=== PATIENT | male | born 1960 | race Caucasian/White ===

== ENCOUNTER 2019-07-04 23:36 | Emergency (ER) | payer MEDICARE ==
[2019-07-05] MEDS ORDERED: Ondansetron PF 4 MG/2 ML Vial ONE (00:31)
[2019-07-05] MEDS ORDERED: Morphine 4 MG/ML VIAL ONE ×2 (00:31→03:02)
[2019-07-05 00:33] LABS: #Eosinphils 0.3 thou/uL (0.0-0.7); #Lymphocytes 3.3 thou/uL (1.20-3.40); #Monocytes 0.7 thou/uL (0.11-0.59); #Neutrophils 5.7 thou/uL (1.40-6.50); %Basophils 0.5 % (0.0-1.0); %Eosinophils 2.9 % (0.0-10.0); %Lymphocytes 33.1 % (21.0-51.0); %Monocytes 6.8 % (0.0-10.0); %Neutrophils 56.7 % (42.0-75.0); Hemoglobin 14.2 g/dL (14.0-18.0); Mean Corpuscular HGB CONC 34.5 g/dL (32.0-36.0); Mean Corpuscular Hemoglobin 30.1 pg (27.0-31.0); Mean Corpuscular Volume 87.3 fL (78.0-98.0); Mean Platelet Volume 7.2 fL (7.4-10.4); Platelet Count 300 thou/uL (130-400); RBC Distribution Width 12.1 % (11.5-14.5); Red Blood Cell (RBC) Count 4.72 mill/uL (4.70-6.10); White Blood Cell (WBC) Count 10.1 thou/uL (4.8-10.8)
[2019-07-05 00:54] LABS: ALT (SGPT) 15 U/L (8-55); AST (SGOT) 12 U/L (5-34); Albumin 4.1 g/dL (3.5-5.0); Alkaline Phosphatase 56 U/L (40-150); Anion Gap 16 mmol/L (10-20); BUN (Urea Nitrogen) 11 mg/dL (8.4-25.7); Bilirubin, Total 0.3 mg/dL (0.2-1.2); Calc. Creatinine Clearance 0 mL/min (70-130); Calcium 9.7 mg/dL (7.8-10.44); Carbon Dioxide 26 mmol/L (22-29); Chloride 104 mmol/L (98-107); Estimated GFR-MDRD 79; Globulin 2.9 g/dL (2.4-3.5); Glucose 174 mg/dL (70-105); Lipase 44 U/L (8-78); Potassium 4.8 mmol/L (3.5-5.1); Sodium 141 mmol/L (136-145)
[2019-07-05 01:08] LABS: Bilirubin Negative (Negative); Blood, Urine Negative (Negative); Clarity Clear (Clear); Glucose, Urine (Dipstick) Normal (Negative); Leukocyte Negative Leu/uL (Negative); Nitrite Negative (Negative); Protein, Urine (Dipstick) 20 mg/dL (Neg-Trace); Urobilinogen Normal mg/dL (Less than 2)
[2019-07-05] MEDS ORDERED: Promethazine HCl 25 MG/ML VIAL ONE (01:45)
--- NOTE | 2019-07-05 08:06 | ULT ---
PRELIMINARY REPORT/[facility]/EMERGENCY AFTER HOURS PROCEDURE: Addendum created by Maryann Uribe MD on 07/05/2019 1:40 AM Central Time ([place] & [place]) Liver is enlarged at 21 cm and demonstrates diffuse fatty infiltration. No solid mass is identified. Minimal gallbladder sludge. Initial Report created on 07/05/2019 1:39 AM Central Time ([place] & [place]) EXAM: US Abdomen Limited, Right Upper Quadrant EXAM DATE/TIME: 07/05/2019 12:56 AM CLINICAL HISTORY: 59 years old, male; Abdominal pain; Localized; Right upper quadrant (ruq); Patient HX: Ruq pain, bloa ting, n/v TECHNIQUE: Imaging protocol: Real-time ultrasound of the abdomen with image documentation. Examination was focus ed on the right upper quadrant. COMPARISON: No relevant prior studies available. FINDINGS: Liver: No masses. Gallbladder: Distended. No gallstones. There is no gallbladder wall thickening. Common bile duct: 5 mm. No stones. No dilation. Pancreas: Obscured by bowel gas. Right kidney: 3.4 x 3.1 x 3.1 cm simple cyst. No solid mass. No hydronephrosis. IMPRESSION: Distended gallbladder which otherwise appears normal. No focal tenderness. No biliary stone or dilation. Right renal cyst. Thank you for allowing us to participate in the care of your patient. Dictated and Authenticated by: Maryann Uribe MD 07/05/2019 1:39 AM Central Time ([place] & [place]) FINAL REPORT GALLBLADDER ULTRASOUND: FINDINGS/IMPRESSION: Final report is in agreement with the above-provided preliminary interpretation. No acute gallbladder pathology. Incidental right renal cyst. Increased echogenicity of hepatic parenchyma which can be seen in the setting of hepatic steatosis. Correlate liver function enzymes.
--- NOTE | 2019-07-05 08:33 | CT ---
PRELIMINARY REPORT/[facility]/EMERGENCY AFTER HOURS PROCEDURE: EXAM: CT Angiography Chest With Contrast EXAM DATE/TIME: 07/05/2019 3:17 AM CLINICAL HISTORY: 59 years old, male; Chest pain; Abdominal pain; Acute; Patient HX: No previous. . . Er 13. . . M59 C/ O ruq pain that began this evening, also states it radiates to the back. Reports it is associated w/n /v. Denies fevers, sweats, chills. TECHNIQUE: Imaging protocol: Computed tomographic angiography of the chest with intravenous contrast. 3D renderi ng: MIP reconstructed images were created and reviewed. COMPARISON: No relevant prior studies available. FINDINGS: Tubes, catheters and devices: Left sided automated implantable cardioverter defibrillator device is i ntact and in satisfactory position. Pulmonary arteries: Bolus is timed for the aorta. No central embolism seen. Aorta: There are atheromatous calcifications of the aorta without visible aneurysm. No dissection. Lungs: No focal infiltrate. No masses. Pleural space: No pneumothorax. No pleural effusion. Heart: Mild cardiomegaly. There are atheromatous calcifications of the coronary vasculature. Lymph nodes: Unremarkable. No enlarged lymph nodes. Bones/joints: There are median sternotomy changes. Chronic degenerative spinal changes without acute fracture or dislocation. Soft tissues: Unremarkable. IMPRESSION: Cardiomegaly. Atheromatous disease. No aneurysm or dissection. EXAM: CT Angiography Abdomen With Contrast EXAM DATE/TIME: 07/05/2019 3:17 AM CLINICAL HISTORY: 59 years old, male; Chest pain; Abdominal pain; Acute; Patient HX: No previous. . . Er 13. . . M59 C/ O ruq pain that began this evening, also states it radiates to the back. Reports it is associated w/n /v. Denies fevers, sweats, chills. TECHNIQUE: Imaging protocol: Computed tomographic angiography images of the abdomen with intravenous contrast ma terial. 3D rendering: MIP reconstructed images were created and reviewed. COMPARISON: No relevant prior studies available. FINDINGS: VASCULATURE: Aorta: There are atheromatous changes of the abdominal aorta without aneurysm. Celiac trunk and mesenteric arteries: No occlusion or significant stenosis. Renal arteries: No occlusion or significant stenosis. ABDOMEN: Liver: Liver is enlarged at 22.5 cm and demonstrates diffuse fatty infiltration. No solid mass is hernandez ntified. Gallbladder and bile ducts: Gallbladder distended. No calcified stones. No ductal dilation. Pancreas: No ductal dilation. Spleen: No splenomegaly. Adrenals: No mass. Kidneys and ureters: Bilateral simple renal cysts, largest on the right measuring 3.5 cm vs 2.6 cm on the left. Six mm nonobstructing stone, left lower pole. Three mm nonobstructing stone, left lower po le. Stomach and bowel: There is moderate colonic fecal retention. Intraperitoneal space: Unremarkable. No free air. No significant fluid collection. Bones/joints: Chronic degenerative spinal changes without acute fracture or dislocation. Soft tissues: Unremarkable. Lymph nodes: Unremarkable. No enlarged lymph nodes. IMPRESSION: Atheromatous disease. No aneurysm or dissection. Distended gallbladder. Nonobstructing renal stones. Fecal retention. Thank you for allowing us to participate in the care of your patient. Dictated and Authenticated by: Maryann Uribe MD 07/05/2019 3:41 AM Central Time ([place] & [place]) FINAL REPORT CT ANGIOGRAM OF THORACIC AORTA CT ANGIOGRAM OF ABDOMINAL AORTA: Date: 07/05/19 HISTORY: Right upper quadrant pain, radiating to the back. Evaluate for dissection. COMPARISON: None. TECHNIQUE: CT angiogram of the thoracic and abdominal aorta performed in the axial plane. Three-dimensional refo rmatted images are submitted for interpretation. FINDINGS: CHEST CT: Cardiomegaly. No significant mediastinal mass, lymphadenopathy, or hematoma. There are coronary arter y calcifications. Trachea and central bronchi are patent. No masses or consolidation. No pneumothorax or osseous abnorm alities. ABDOMEN CT: Visualized solid organs demonstrate appropriate enhancement. Hypodensities in the left and right cedric l cortex are compatible with cysts. Bilateral nonobstructing intrarenal calculi are noted. Visualized alimentary canal is unremarkable. CT ANGIOGRAM: There is appropriate enhancement and luminal diameter of the root of the thoracic aorta, ascending th oracic aorta, aortic arch, descending thoracic aorta, and abdominal aorta. The celiac artery origin, superior mesenteric artery origin, renal artery origin, inferior mesenteric artery origin, aortic bif urcation, and visualized iliac arteries have appropriate enhancement and luminal diameter. No aneurys m or dissection. Mild atherosclerosis of the distal abdominal aorta. The visualized origin of the gre at vessels and neck are also unremarkable. IMPRESSION: No evidence of aneurysm or dissection. This report is in agreement with the preliminary report by Edyta. POS: [facility]
[2019-07-05] MEDS ORDERED: ISOVUE-370 76%-LOCM 1 ML ONE (12:30)
== END 2019-07-05 04:30 | disposition home or self-care (01) ==
LOC: ERS 23:36
DX: R10.11 Right upper quadrant pain (principal); I25.2 Old myocardial infarction; I50.9 Heart failure, unspecified; E11.9 Type 2 diabetes mellitus without complications; Z79.899 Other long term (current) drug therapy; Z79.01 Long term (current) use of anticoagulants; Z79.4 Long term (current) use of insulin
CPT/HCPCS: 36415; 71275; 76705; 80053; 81003; 83690; 85025; 96361; 96374; 96375; 96376; J2270; J2405; J2550

== ENCOUNTER 2019-07-08 16:14 | Inpatient (IN) | payer MEDICARE ==
[2019-07-08 17:25] LABS: #Eosinphils 0.1 thou/uL (0.0-0.7); #Monocytes 1.4 thou/uL (0.11-0.59); #Neutrophils 10.5 thou/uL (1.40-6.50); %Basophils 0.2 % (0.0-1.0); %Eosinophils 0.8 % (0.0-10.0); %Monocytes 9.7 % (0.0-10.0); %Neutrophils 75.3 % (42.0-75.0); Hemoglobin 12.8 g/dL (14.0-18.0); Mean Corpuscular HGB CONC 33.5 g/dL (32.0-36.0); Mean Corpuscular Hemoglobin 29.6 pg (27.0-31.0); Mean Corpuscular Volume 88.1 fL (78.0-98.0); Mean Platelet Volume 7.4 fL (7.4-10.4); Platelet Count 275 thou/uL (130-400); RBC Distribution Width 12.2 % (11.5-14.5); Red Blood Cell (RBC) Count 4.34 mill/uL (4.70-6.10); White Blood Cell (WBC) Count 13.9 thou/uL (4.8-10.8)
[2019-07-08 17:45] LABS: ALT (SGPT) 14 U/L (8-55); AST (SGOT) 11 U/L (5-34); Albumin 3.7 g/dL (3.5-5.0); Alkaline Phosphatase 73 U/L (40-150); Anion Gap 15 mmol/L (10-20); BUN (Urea Nitrogen) 10 mg/dL (8.4-25.7); Bilirubin, Total 0.4 mg/dL (0.2-1.2); Calc. Creatinine Clearance 0 mL/min (70-130); Calcium 9.4 mg/dL (7.8-10.44); Carbon Dioxide 29 mmol/L (22-29); Chloride 98 mmol/L (98-107); Estimated GFR-MDRD 89; Globulin 3.2 g/dL (2.4-3.5); Glucose 135 mg/dL (70-105); Lipase 20 U/L (8-78); Potassium 4.5 mmol/L (3.5-5.1); Protein, Total 6.9 g/dL (6.0-8.3); Sodium 137 mmol/L (136-145)
[2019-07-08 17:55] LABS: Bilirubin Negative (Negative); Blood, Urine Negative (Negative); Clarity Clear (Clear); Glucose, Urine (Dipstick) Normal (Negative); Leukocyte Negative Leu/uL (Negative); Nitrite Negative (Negative); Protein, Urine (Dipstick) 10 mg/dL (Neg-Trace); Urobilinogen Normal mg/dL (Less than 2)
[2019-07-08 18:05] LABS: CKMB 1.4 ng/mL (0-6.6)
--- NOTE | 2019-07-08 18:25 | ULT ---
GALLBLADDER ULTRASOUND: History: Right upper quadrant pain. FINDINGS: The liver demonstrates increased echogenicity concerning for fatty infiltration without focal mass or intrahepatic biliary dilatation. No gallstones are seen. There is thickening and edema in the wall o f the gallbladder measuring about 4 mm. The common duct measures 5 mm. The pancreas is not well visualized due to overlying bowel gas. The right kidney is unremarkable. No free fluid is seen in Rodarte's pouch. IMPRESSION: Edematous gallbladder wall without gallstones. If there is concern for acute calculus, cholecystitis with evaluation with HIDA scan should be performed. POS: [facility]
[2019-07-08] MEDS ORDERED: Aspirin Chewable 81 MG TAB ONE (19:12)
[2019-07-08] MEDS ORDERED: Piperacillin/Tazobactam 4.5 GM VIAL ONE (19:46)
--- NOTE | 2019-07-08 20:21 | PDOC.FPRHP ---
- History of Present Illness Chief Complaint: Abdominal pain History of Present Illness: 59yo male w/ significant pmhx of CAD w/ CABG, DMII, afib, and CHF presents to the ED complaining of RUQ pain. Pt states that the pain started at the end of last week and has been progressively worsening. Pt noticed that the pain is worse after meals so he wasn't eating much the last couple days which improved his pain until today when it acutely worsened after eating greasy gas station food. Pt denies any assocaited sx including CP, N/V, diarrhea, and constipation. Initial workup in the ED showed the pt to have thickening and enlargement of his gallbladder w/ a WBC of 13.9 and indeterminate level troponin. Pt denies any chest pain or shortness of breath. - Allergies/Adverse Reactions Allergies Allergy/AdvReac Type Severity Reaction Status Date / Time Penicillins Allergy Intermediate Rash Verified 08/31/16 13:02 - Home Medications Medication Instructions Recorded Confirmed Type Atorvastatin Calcium [Lipitor] 40 mg PO QPM 08/31/16 07/08/19 History Carvedilol 1 tab PO BID 08/31/16 07/08/19 History Clopidogrel Bisulfate [Clopidogrel] 1 tab PO DAILY 08/31/16 07/08/19 History Digoxin 0.5 tab PO DAILY 08/31/16 07/08/19 History Insulin Glargine,Hum.Rec.Anlog 64 unit SC QPM 08/31/16 07/08/19 History [Lantus Solostar] Liraglutide [Victoza 3-Jt] 1.8 mg SC DAILY 08/31/16 07/08/19 History Sotalol HCl [Betapace] 40 mg PO BID 08/31/16 07/08/19 History metFORMIN HCl 1 tab PO BID 08/31/16 07/08/19 History Icosapent Ethyl [Vascepa] 2 cap PO BID 07/08/19 07/08/19 History Ivabradine [Corlanor] 0.5 tab PO BID 07/08/19 07/08/19 History Oxycodone Myristate [Xtampza ER] 1 cap PO Q12H 07/08/19 07/08/19 History Sacubitril/Valsartan 49/51 1 tab PO BID 07/08/19 07/08/19 History [Entresto 49 mg-51 mg Tablet] glipiZIDE [Glipizide] 1 tab PO BID 07/08/19 07/08/19 History - History PMHx: CAD s/p [place]/5vCABG/Stents, 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 Mercer - [facility] - Review of Systems General: denies: fever/chills, weight/appetite/sleep changes Eyes: denies: eye pain, vision changes ENT: denies: nasal congestion, rhinorrhea Respiratory: denies: cough, shortness of breath Cardiovascular: denies: chest pain, palpitation, edema Gastrointestinal: reports: abdominal pain. denies: nausea, vomiting, diarrhea, constipation Genitourinary: denies: dysuria, polyuria Skin: denies: rashes, lesions Musculoskeletal: denies: pain, tenderness Neurological: denies: numbness, weakness Psychological: denies: anxiety, depression - Vital signs BP: 128/78, Pulse: 79, Resp: 16, Temp: 98.8 (Oral), Pain: 6, O2 sat: 98 on Room Air, Wt: 103.87kg - Physical Exam Constitutional: NAD, awake, alert and oriented, well developed HEENT: normocephalic and atraumatic, PERRLA, EOMI, conjunctiva clear, grossly normal vision, grossly normal hearing Neck: supple, no LAD Heart: RRR, normal S1/S2, no murmurs/rubs/gallops, pulses present, no edema Lungs: CTAB, no respiratory distress, good air movement, no rales/rhonchi, no wheezing Abdomen: soft, bowel sounds present, no masses/distention, other (TTP in RUQ with + murphys sign, no rebound or guarding) Musculoskeletal: normal structure, normal tone Neurological: no focal deficit, CN II-XII intact Skin: no rash/lesions, good turgor, capillary refill <2 seconds Heme/Lymphatic: no unusual bruising or bleeding, no purpura Psychiatric: normal mood and affect, good judgment and insight, intact recent and remote memory FMR H&P: Results - Labs Result Diagrams: 07/09/19:52 07/09/19 02:52 Lab results: WBC 13.9 thou/uL (4.8-10.8) H 07/08/19 17:14 Hgb 12.8 g/dL (14.0-18.0) L 07/08/19 17:14 Hct 38.3 % (42.0-52.0) L 07/08/19 17:14 MCV 88.1 fL (78.0-98.0) 07/08/19 17:14 Plt Count 275 thou/uL (130-400) 07/08/19 17:14 Neutrophils % 75.3 % (42.0-75.0) H 07/08/19 17:14 Sodium 137 mmol/L (136-145) 07/08/19 17:14 Potassium 4.5 mmol/L (3.5-5.1) 07/08/19 17:14 Chloride 98 mmol/L (98-107) 07/08/19 17:14 Carbon Dioxide 29 mmol/L (22-29) 07/08/19 17:14 BUN 10 mg/dL (8.4-25.7) 07/08/19 17:14 Creatinine 0.88 mg/dL (0.7-1.3) 07/08/19 17:14 Glucose 135 mg/dL (70-105) H 07/08/19 17:14 Calcium 9.4 mg/dL (7.8-10.44) 07/08/19 17:14 Total Bilirubin 0.4 mg/dL (0.2-1.2) 07/08/19 17:14 AST 11 U/L (5-34) 07/08/19 17:14 ALT 14 U/L (8-55) 07/08/19 17:14 Alkaline Phosphatase 73 U/L (40-150) 07/08/19 17:14 CK-MB (CK-2) 1.4 ng/mL (0-6.6) 07/08/19 17:14 Serum Total Protein 6.9 g/dL (6.0-8.3) 07/08/19 17:14 Albumin 3.7 g/dL (3.5-5.0) 07/08/19 17:14 Lipase 20 U/L (8-78) 07/08/19 17:14 Urine Ketones Negative mg/dL (Negative) 07/08/19 17:40 Urine Blood Negative (Negative) 07/08/19 17:40 Urine Nitrite Negative (Negative) 07/08/19 17:40 Ur Leukocyte Esterase Negative Elvi/uL (Negative) 07/08/19 17:40 - EKG Interpretation EKG: NSR with PVC's, rate 76 - Radiology Interpretation Other Status: image reviewed by me, report reviewed by me Additional comment: RUQ US: Gallbladder wall thickening to 4mm, no stones seen, CBD 5mm FMR H&P: A/P - Problem List (1) Acute acalculous cholecystitis Current Visit: Yes Status: Suspected Code(s): K81.0 - ACUTE CHOLECYSTITIS (2) Coronary artery disease Current Visit: Yes Status: Acute Code(s): I25.10 - ATHSCL HEART DISEASE OF [place] CORONARY ARTERY W/O ANG PCTRS (3) Diabetes mellitus type 2 with complications Current Visit: Yes Status: Acute Code(s): E11.8 - TYPE 2 DIABETES MELLITUS WITH UNSPECIFIED COMPLICATIONS (4) Atrial fibrillation Current Visit: Yes Status: Acute Code(s): I48.91 - UNSPECIFIED ATRIAL FIBRILLATION (5) Leukocytosis Current Visit: Yes Status: Acute Code(s): D72.829 - ELEVATED WHITE BLOOD CELL COUNT, UNSPECIFIED - Plan Acute Acalculous Cholecystitis - Suspected RUQ pain, worse post prandial, FHx of cholecystitis US: gallbladder wall thickening, WBC 13.9 - NPO - Trend WBC - IVF - ED started on Zosyn, will continue - Surgery consulted, Dr. Ely, recommend HIDA scan Elevated troponin w/ Hx of CAD s/p CABG Pt with h/o 5v CABG, currently asymptomatic - Will trend - Repeat EKG and trops for any chest pain - Will call Dr. Griffith in the AM for cardiac clearance - Resume home cardiac rx Diabetes Mellitus II - Hold Rx while NPO - Accuchecks q6h - SSI Paroxysmal A-fib - Currently taking several anti-arrhythmics, will continue - Admit to tele CHF - Daily weights - Strict I/O's - Continue home meds - IVF @ 100 while pt is borderline hypotensive - Pt states he normally drinks about 3 gallons of water per day and takes his furosemide prn which is usually every few days - Monitor fluid status closely Admit: Tele inpt Diet: NPO Code status: Full FMR H&P: Upper Level - Pertinent history 59 y/o M PMHx CAD s/p 5v CABG, DM2, a-fib, CHF presents to the ED complaining of RUQ abd pain. He reports the pain has been there since and starts just after eating. Nothing else makes it worse. He has not been eating as much the past few days and that has helped the pain. Denies any vomiting or diarrhea. He denies fevers, chills. Denies any prior abdominal problems or surgeries. Denies chest pain, SOB, diaphoresis. - Pertinent findings Vitals: BP: 128/78, Pulse: 79, Resp: 16, Temp: 98.8 (Oral), Pain: 6, O2 sat: 98 on Room Air, Wt: 103.87kg PE: Gen - alert, oriented, NAD HEENT - MMM CV - RRR, no murmurs Lungs - CTAB, no wheezes Abd - non-distended, normoactive bowel sounds, soft, TTP in RUQ with + [place] sign, no rebound or guarding RUQ US: Gallbladder wall thickening, no stones - Plan Date/Time: 07/08/192020 I, Kenzie Garg MD, PGY-3, have evaluated this patient and agree with findings/ plan as outlined by human resources intern resident. Pertinent changes/additions are listed here. 1. Suspected Acute Acalculous Cholecystitis WBC count WNL. Afebrile. s/p zosyn in ED -Dr. Ely with general surgery has been consulted, appreciate recs -NPO -HIDA scan -Will hold further fluids at this time as pt not septic, appears fluid neutral and do not want to overload -Zosyn 2. Elevated troponin Pt with h/o 5v CABG -Will trend -Repeat EKG and trops for any chest pain, currently asymptomatic -Will call Dr. Griffith in the AM for cardiac clearance and prior records as pt reports stress test within past 3 months 3. CAD s/p CABG and stents -Contact cards as above -Continue medications, but hold aspirin and plavix for surgery 4. DM2 -Will hold meds while NPO -Accuchecks q6h -SSI 5. Paroxysmal a-fib -continue home meds 6. CHF -Daily weights -Strict I/O's -Continue home meds Dispo: Admit to tele LOS: likely 2 days Code status: Full Addendum - Attending - Attending Attestation Date/Time: 07/08/19 3060 I personally evaluated the patient and discussed the management with Dr. Jacobs/ [place]. I agree with the History, Examination, Assessment and Plan documented above with any addition or exceptions noted below. Patient is 59 yo M with history of CAD s/p CABG, CHF unspecified type, Afib, DM here for abdominal pain. Reports several days of pain, onset and worsened by food intake. Denies fevers, chills, nausea, vomiting, diarrhea. Denies chest pain, shortness of breath, or worsening pain with exertion. Exam reveals RUQ abdominal TTP. U/S shows possible cholecystitis without gallstone formation. His LFTs are currently normal. Vitals otherwise stable. He will be admitted for concern for acalculous cholecystitis. Gen Surg has been consulted and the patient will undergo HIDA scan. Continue Zosyn. He was also noted to have indeterminate trops without chest pain, already downtrending, and likely 2/2 troponin leak from his CHF and known cardiomyopathy. Monitor in telemetry. Further recs and mgmt per HIDA result and GenSurg mgmt.
[2019-07-08] MEDS ORDERED: Morphine 4 MG/ML VIAL ONE (20:31)
[2019-07-08 21:07] LABS: Troponin I 0.074 ng/mL (< 0.028)
[2019-07-08] MEDS ORDERED: Dextrose 50% Abboject 50 ML SYRINGE SLOW IVP PRN (22:24)
[2019-07-08] MEDS ORDERED: Dextrose 5% in Water 1,000 ML IV PRN (22:24)
[2019-07-08] MEDS ORDERED: Acetaminophen 325 MG TAB PO PRN (22:31)
--- NOTE | 2019-07-09 01:41 | CON ---
DATE OF CONSULTATION: 07/08/2019 REQUESTING PHYSICIAN: Philipp Jo MD HISTORY OF PRESENT ILLNESS: This is a 59-year-old man, who presented to emergency department with recurrent right upper quadrant abdominal pain. The patient first experienced such pain 4 days previously following the dinner. Pain was described as sharp, bandlike radiation to his back. The pain was rated at 9/10 associated with episodes of nausea and nonbilious emesis. The patient denies any abdominal bloating or frequent flatulence. The patient was evaluated in the emergency department at that time and workup included abdominal ultrasound following which the patient was discharged home. The next day, he felt a little better and tried to eat a bowl of soup with immediate return of the pain. He has been anorexic since that time. Pain returned with maximum intensity today and failed to resolve. As a result, the patient presented to emergency department. He now admits to some chills, though no fevers. He denies any diarrhea. PAST MEDICAL HISTORY: Significant for coronary artery disease, of which the patient is status post myocardial infarction 21 years ago. He has had no further angina since that time. Other pertinent medical history includes chronic congestive heart failure, type 2 diabetes mellitus, paroxysmal atrial fibrillation, and rheumatoid arthritis. PAST SURGICAL HISTORY: Significant for 5-vessel coronary artery bypass graft that was in 1998. He had coronary arterial stent in 2009 and repeat coronary angiography with stenting in 2014. He also admits to having had left inguinal herniorrhaphy, upper and lower endoscopies. SOCIAL HISTORY: He used to smoke up to a pack of cigarettes per day prior to his AR. He has not smoked since that time. He denies any ethanol or illicit drug abuse. FAMILY HISTORY: Noncontributory for this patient's age. PRE-HOSPITAL MEDICATIONS: Includes Plavix 75 mg p.o. daily, glipizide 10 mg p.o. b.i.d., Lantus insulin 64 units subcutaneously q.p.m., metformin 1000 mg p.o. b.i.d., oxycodone 18 mg p.o. q.12 hours, atorvastatin 40 mg p.o. q.p.m., carvedilol 25 mg p.o. b.i.d., digoxin 0.5 mg p.o. daily, Vascepa 1 g 2 capsules p.o. b.i.d., Entresto 49 mg/51 mg p.o. b.i.d., and Betapace 40 mg p.o. b.i.d. ALLERGIES: PENICILLIN. REVIEW OF SYSTEMS: Ten-point review of systems essentially unremarkable except as stated in past medical history and chief complaint. PHYSICAL EXAMINATION: GENERAL: This reveals a 59-year-old normally developed man, who is otherwise coherent and interactive and appears stated age. The patient is alert and oriented x3, appears to be in no acute distress at time of my evaluation. VITAL SIGNS: Currently include blood pressure 128/78, pulse is 79, respiratory rate is 16, temperature 98.8 degrees Fahrenheit, and oxygen saturation 98% on room air. HEENT: Reveals normocephalic and atraumatic. The pupils are equal, round, and reactive to light and accommodation. He has no scleral icterus present. HEART: Reveals irregular rate and irregular rhythm. LUNGS: Clear to auscultation bilaterally. Breathing, regular and nonlabored. ABDOMEN: Soft, nontender, nondistended. Liver and spleen nonpalpable below costal margin. EXTREMITIES: Reveal 2+ radial and pedal pulses bilaterally. NEUROLOGIC: Reveals no focal deficits present. LABORATORY FINDINGS: Today includes a CBC with 13,900 white blood cells, hemoglobin and hematocrit at 12.8 and 38.3 respectively. Platelet count is 375,000. Metabolic profile; sodium 137, potassium 4.5, chloride is 98, bicarb is 29, BUN 10, creatinine 0.88, glucose 135, total bilirubin is 0.4, AST and ALT are normal at 11 and 14 respectively. Alkaline phosphatase is also normal at 73. Troponin I which was trended was initially 0.158 and 3 hours later is 0.074. Serum lipase is normal at 20. I have personally reviewed the abdominal ultrasound, which was obtained today, which revealed a slightly distended gallbladder with thickened gallbladder wall at 4 mm when compared to abdominal ultrasound, which was obtained 4 days previously. No gallstones noted, however, some biliary sludge was present. Common bile duct remains normal on both studies at 5 mm in diameter. IMPRESSIONS: 1. Probable acute acalculous cholecystitis. 2. History of coronary artery disease. 3. History of diabetes mellitus. 4. Qualitative platelet dysfunction. RECOMMENDATIONS: 1. Obtain HIDA scan to exclude any biliary obstruction and furthermore this will enable us to quantitate the gallbladder function. 2. If surgical indication is established, the patient will likely be off Plavix for at least 48-72 hours following which, laparoscopic cholecystectomy will be undertaken. 3. In the interim, we will ask Cardiology to evaluate the patient to weigh the risks and benefits of proposed laparoscopic cholecystectomy. 4. If the patient's risk far outweighs the benefit of cholecystectomy, we will give consideration to percutaneous cholecystostomy tube placement in that setting. Above findings and recommendations have been discussed with the patient who indicates understanding of information given. I have answered his questions. Should surgical intervention be pursued, the patient faces perioperative risk for bleeding, infection, injury to bile duct or surrounding structures. He also faces additional risk for perioperative myocardial infarction given his significant coronary artery disease. Thank you again, Dr. Jo for allowing me the opportunity to participate in the care of this patient. Job ID: [id number]
[2019-07-09] MEDS ORDERED: Piperacillin/Tazobactam 3.375 GM VIAL ONE ×2 (02:57→11:02)
[2019-07-09] MEDS: Piperacillin/Tazobactam 3.375 GM in Sodium Chloride 0.9% 100 ML IVPB SCH ×4 (02:58→22:14)
[2019-07-09] MEDS: Lactated Ringer's 1,000 ML IV SCH ×3 (02:59→20:58)
[2019-07-09 03:00] LABS: #Neutrophils 8.7 thou/uL (1.40-6.50); %Basophils 0.2 % (0.0-1.0); %Eosinophils 0.1 % (0.0-10.0); %Lymphocytes 8.9 % (21.0-51.0); %Monocytes 9.4 % (0.0-10.0); %Neutrophils 81.4 % (42.0-75.0); Hemoglobin 11.8 g/dL (14.0-18.0); Mean Corpuscular HGB CONC 33.8 g/dL (32.0-36.0); Mean Corpuscular Volume 88.6 fL (78.0-98.0); Mean Platelet Volume 7.3 fL (7.4-10.4); Platelet Count 243 thou/uL (130-400); RBC Distribution Width 12.2 % (11.5-14.5); Red Blood Cell (RBC) Count 3.93 mill/uL (4.70-6.10); White Blood Cell (WBC) Count 10.7 thou/uL (4.8-10.8)
[2019-07-09 03:32] LABS: Anion Gap 14 mmol/L (10-20); BUN (Urea Nitrogen) 16 mg/dL (8.4-25.7); Calc. Creatinine Clearance 0 mL/min (70-130); Calcium 8.7 mg/dL (7.8-10.44); Carbon Dioxide 24 mmol/L (22-29); Chloride 101 mmol/L (98-107); Estimated GFR-MDRD 63; Glucose 160 mg/dL (70-105); Potassium 3.8 mmol/L (3.5-5.1); Sodium 135 mmol/L (136-145)
--- NOTE | 2019-07-09 06:15 | PDOC.FM ---
- Subjective Subjective: pt resting comfortably in bed, reports abdominal pain and nausea improved - Objective Result Diagrams: 07/09/19 02:52 07/09/19 02:52 Phys Exam - Physical Examination Constitutional: NAD HEENT: moist MMs Neck: no JVD Respiratory: clear to auscultation bilateral Cardiovascular: no significant murmur ttp RUQ Musculoskeletal: pulses present Neurological: moves all 4 limbs Psychiatric: normal affect Skin: no rash Dx/Plan (1) Atrial fibrillation Code(s): I48.91 - UNSPECIFIED ATRIAL FIBRILLATION Status: Acute (2) Coronary artery disease Code(s): I25.10 - ATHSCL HEART DISEASE OF [place] CORONARY ARTERY W/O ANG PCTRS Status: Acute (3) Diabetes mellitus type 2 with complications Code(s): E11.8 - TYPE 2 DIABETES MELLITUS WITH UNSPECIFIED COMPLICATIONS Status: Acute (4) Acute acalculous cholecystitis Code(s): K81.0 - ACUTE CHOLECYSTITIS Status: Suspected - Plan Plan: Suspected Acute Acalculous Cholecystitis WBC count WNL. Afebrile. s/p zosyn in ED -Dr. Ely with general surgery has been consulted, appreciate recs -NPO, HIDA scan pending, continue zosyn Elevated troponin Pt with h/o 5v CABG - downtrending -Repeat EKG and trops for any chest pain, currently asymptomatic CAD s/p CABG and stents -Continue medications, but hold aspirin and plavix for surgery DM2 -Will hold meds while NPO -Accuchecks q6h -SSI Paroxysmal a-fib -continue home meds CHF -Daily weights -Strict I/O's -Continue home meds Code status: Full Dispo: continue to eval for surgical intervention Addendum - Attending - Attending Attestation Date/Time: 07/09/19 0257 I personally evaluated the patient and discussed the management with Dr. Martinez. I agree with the History, Examination, Assessment and Plan documented above with any addition or exceptions noted below. Patient here for suspected acalculous cholecystitis in the setting of severe cardiac disease. HIDA scan pending. Will likely need cardiac clearance prior to any surgery being performed. Awaiting further GenSurg recs.
[2019-07-09] MEDS ORDERED: ICOSAPENT ETHYL PO SCH (09:00)
[2019-07-09] MEDS ORDERED: Digoxin 0.125 MG TAB ONE (11:01)
[2019-07-09] MEDS ORDERED: Piperacillin/Tazobactam 2.25 GM VIAL ONE (11:01)
[2019-07-09] MEDS: Carvedilol 25 MG TAB PO SCH ×2 (11:16→21:47)
[2019-07-09] MEDS: Ivabradine 5 MG TAB PO SCH ×2 (11:16→22:53)
[2019-07-09] MEDS: Digoxin 0.125 MG TAB PO SCH (11:16)
[2019-07-09] MEDS: Sotalol HCl 80 MG TAB PO SCH ×2 (11:17→21:47)
[2019-07-09] MEDS: Sacubitril 49 MG/Valsartan 51 MG TABLET PO SCH ×2 (11:17→22:53)
--- NOTE | 2019-07-09 14:46 | NM ---
HEPATOBILIARY SCAN: Date: 07/08/19 HISTORY: Acute cholecystitis. RADIOPHARMACEUTICAL: 5 mCi technetium-99m mebrofenin injected intravenously. CCK-8: The patient was pretreated with 2 mg IV CCK infused 30 minutes prior to the administration of the radiopharmaceutical. FINDINGS: There is tracer extraction by the liver without excretion into the biliary tract or small bowel loops , or filling of the gallbladder at 4 hours post injection. Since the recent gallbladder ultrasound demonstrates no abnormal biliary ductal dilatation, this find ing is most likely due to hepatocellular dysfunction. As there is no biliary excretion, the possibility of cholecystitis cannot be excluded on this study. Discussed over the telephone with Dr. Ely at 1330 hours. CODE CR. POS: MADIHA
[2019-07-09] MEDS: Morphine 4 MG/ML VIAL SLOW IVP PRN (17:43)
[2019-07-09] MEDS: Ondansetron ODT 4 MG TAB PO PRN (18:24)
[2019-07-09] MEDS: Atorvastatin Calcium 40 MG TAB PO SCH (22:53)
--- NOTE | 2019-07-10 00:40 | PRG ---
DATE OF SERVICE: Mr. Shook is a 59-year-old gentleman who consulted General Surgery with suspected acute acalculous cholecystitis with extensive history of coronary artery disease, diabetes, and the patient reports doing better. Pain subsided. No nausea, vomiting. Vitals have been stable. HIDA scan, resolved most slightly hepatocellular dysfunction. No biliary discretion. Await for Cardiology consultation. If any, patient needs cholecystectomy surgery. Job ID: [id number]
[2019-07-10] MEDS: Piperacillin/Tazobactam 3.375 GM in Sodium Chloride 0.9% 100 ML IVPB SCH ×4 (04:05→21:35)
[2019-07-10 05:27] LABS: #Eosinphils 0.1 thou/uL (0.0-0.7); #Lymphocytes 0.9 thou/uL (1.20-3.40); #Monocytes 0.7 thou/uL (0.11-0.59); #Neutrophils 8.3 thou/uL (1.40-6.50); %Basophils 0.3 % (0.0-1.0); %Eosinophils 0.8 % (0.0-10.0); %Lymphocytes 9.1 % (21.0-51.0); %Monocytes 7.3 % (0.0-10.0); %Neutrophils 82.6 % (42.0-75.0); Hemoglobin 11.3 g/dL (14.0-18.0); Mean Corpuscular HGB CONC 33.6 g/dL (32.0-36.0); Mean Corpuscular Hemoglobin 29.9 pg (27.0-31.0); Mean Corpuscular Volume 88.9 fL (78.0-98.0); Mean Platelet Volume 7.7 fL (7.4-10.4); Platelet Count 223 thou/uL (130-400); RBC Distribution Width 12.2 % (11.5-14.5); Red Blood Cell (RBC) Count 3.78 mill/uL (4.70-6.10)
[2019-07-10 05:46] LABS: ALT (SGPT) 188 U/L (8-55); AST (SGOT) 120 U/L (5-34); Albumin 2.9 g/dL (3.5-5.0); Alkaline Phosphatase 370 U/L (40-150); Anion Gap 19 mmol/L (10-20); BUN (Urea Nitrogen) 17 mg/dL (8.4-25.7); Bilirubin, Total 3.7 mg/dL (0.2-1.2); Calc. Creatinine Clearance 130 mL/min (70-130); Calcium 8.4 mg/dL (7.8-10.44); Carbon Dioxide 21 mmol/L (22-29); Chloride 101 mmol/L (98-107); Estimated GFR-MDRD 81; Globulin 2.7 g/dL (2.4-3.5); Glucose 176 mg/dL (70-105); Potassium 3.5 mmol/L (3.5-5.1); Protein, Total 5.6 g/dL (6.0-8.3); Sodium 137 mmol/L (136-145)
--- NOTE | 2019-07-10 06:13 | PDOC.FM ---
- Subjective Subjective: pt resting comfortably in bed, denies abdominal pain or nausea - Objective Vital Signs & Weight: Vital Signs (12 hours) Temp Pulse Resp BP Pulse Ox 07/10/19 04:00 97.6 F 64 18 107/53 L 96 07/09/19 23:35 98.9 F 58 L 20 93/50 L 92 L 07/09/19 21:47 68 07/09/19 20:00 97.9 F 68 16 103/54 L 96 Weight Weight 110.087 kg I&O: 07/08/19 07/09/19 07/10/19 06:59 06:59 06:59 Intake Total 2710 Output Total 400 Balance 2310 Result Diagrams: 07/10/19 04:56 07/10/19 04:56 Phys Exam - Physical Examination Constitutional: NAD HEENT: moist MMs Neck: no JVD Gastrointestinal: soft, non-tender, no distention Musculoskeletal: no edema Neurological: moves all 4 limbs Psychiatric: normal affect Skin: no rash Dx/Plan (1) Atrial fibrillation Code(s): I48.91 - UNSPECIFIED ATRIAL FIBRILLATION Status: Acute (2) Coronary artery disease Code(s): I25.10 - ATHSCL HEART DISEASE OF [place] CORONARY ARTERY W/O ANG PCTRS Status: Acute (3) Diabetes mellitus type 2 with complications Code(s): E11.8 - TYPE 2 DIABETES MELLITUS WITH UNSPECIFIED COMPLICATIONS Status: Acute (4) Acute acalculous cholecystitis Code(s): K81.0 - ACUTE CHOLECYSTITIS Status: Suspected - Plan Plan: Suspected Acute Acalculous Cholecystitis WBC count WNL. Afebrile. s/p zosyn in ED -Dr. Ely with general surgery has been consulted, appreciate recs -US showed thickened GB wall, HIDA abdnormal, continue zosyn - ALT/AST uptrending Elevated troponin, downtrended Pt with h/o 5v CABG -Repeat EKG and trops for any chest pain, currently asymptomatic CAD s/p CABG and stents -Continue medications, but hold aspirin and plavix for surgery - consult cards, appreciate recs DM2 -continue home meds -Accuchecks q6h -SSI Paroxysmal a-fib -continue home meds CHF -Daily weights -Strict I/O's -Continue home meds Code status: Full Dispo: continue to eval for surgical intervention Addendum - Attending - Attending Attestation Date/Time: 07/10/19 0902 I personally evaluated the patient and discussed the management with Dr. Martinez. I agree with the History, Examination, Assessment and Plan documented above with any addition or exceptions noted below. Patient here for suspected acalculous cholecystitis. His HIDA scan did now show biliary uptake of tracer. However, his LFTs and alk phos have now trended up, so surgery is likely warranted. If abdominal pain worsens, check lipase. Will need Cardiology on board for pre-op surgical clearance. Further mgmt per Gen Surg and cardiology recs.
[2019-07-10] MEDS: Lactated Ringer's 1,000 ML IV SCH ×2 (09:05→21:31)
[2019-07-10] MEDS: Digoxin 0.125 MG TAB PO SCH (09:09)
[2019-07-10] MEDS: Sotalol HCl 80 MG TAB PO SCH ×2 (09:11→23:02)
[2019-07-10] MEDS: Ivabradine 5 MG TAB PO SCH ×2 (09:14→23:02)
[2019-07-10] MEDS: Sacubitril 49 MG/Valsartan 51 MG TABLET PO SCH ×2 (09:18→23:02)
[2019-07-10] MEDS: Carvedilol 25 MG TAB PO SCH ×2 (09:21→23:01)
--- NOTE | 2019-07-10 11:02 | PRG ---
DATE OF SERVICE: 07/10/2019 SUBJECTIVE: I am seeing Mr. Shook today, a 59-year-old man with significant coronary artery disease history. The patient underwent HIDA scan yesterday, which failed to visualize the gallbladder, common bile duct, or small bowel activity. Meanwhile, LFTs are now elevated. The patient currently denies any abdominal pain, although he had one episode last night. He denies any nausea or vomiting. He denies any fevers or chills. OBJECTIVE: VITAL SIGNS: Currently include blood pressure 107/59, pulse 56, respiratory rate is 14, temperature 97.7 degrees Fahrenheit, and oxygen saturation 96% on room air. HEART: Reveals regular rate with mild bradycardia. No murmurs or gallops auscultated. LUNGS: Clear to auscultation bilaterally. Breathing, regular and nonlabored. ABDOMEN: Soft, nontender, and nondistended. NEUROLOGIC: Reveals no focal deficits present. LABORATORY FINDINGS: Include a CBC with 10,000 white blood cells, hemoglobin and hematocrit 11.3 and 33.6 respectively. Platelet count is 233,000. Metabolic profile; sodium 137, potassium 3.5, chloride is 101, bicarb is 21, BUN is 17, creatinine is 0.95, glucose is 176, total bilirubin is 3.7 with a direct bilirubin of 2.8, AST and ALT now elevated at 120 and 188 respectively. Alkaline phosphatase is also elevated at 370. The LFT pattern suggests a biliary obstruction; however, I am concerned about the findings in the HIDA scan from yesterday, which suggested hepatic dysfunction. We will ask Gastroenterology to evaluate this patient. We will obtain hepatitis profile and try to minimize any usage of hepatic toxic agents. Once acute biliary obstruction has been excluded, we will then make a consideration to the patient's risk for either laparoscopic cholecystectomy or percutaneous cholecystostomy tube placement. Above findings and plan have been discussed with the patient, who indicates understanding information given. I have answered his questions. Job ID: [id number]
[2019-07-10 11:43] LABS: HBCM Index 0.04 S/CO (0-0.79); HBSAg Index 0.48 S/CO (0-0.99); Hep A IgM AB Non-Reactive (NonReactive); Hep A IgM S/CO 0.07 S/CO (0-0.79); Hep B Surf Ag Non-Reactive S/CO (NonReactive); Hep C IgG Ab Non-Reactive (NonReactive); Hep C Index 0.14 S/CO (0-0.79); Hepatitis B Core IgM Abs Non-Reactive (NonReactive)
[2019-07-10 15:36] LABS: Anion Gap 17 mmol/L (10-20); BUN (Urea Nitrogen) 15 mg/dL (8.4-25.7); Calc. Creatinine Clearance 129 mL/min (70-130); Calcium 8.7 mg/dL (7.8-10.44); Carbon Dioxide 24 mmol/L (22-29); Chloride 99 mmol/L (98-107); Estimated GFR-MDRD 80; Glucose 217 mg/dL (70-105); Potassium 3.7 mmol/L (3.5-5.1); Sodium 136 mmol/L (136-145)
[2019-07-10] MEDS: Morphine 4 MG/ML VIAL SLOW IVP PRN (17:31)
[2019-07-10] MEDS: Ondansetron ODT 4 MG TAB PO PRN (17:31)
[2019-07-10] MEDS: Atorvastatin Calcium 40 MG TAB PO SCH (21:36)
--- NOTE | 2019-07-10 21:37 | CON ---
DATE OF CONSULTATION: 07/10/2019 INDICATION FOR CONSULTATION: A 59-year-old patient who needs to undergo a cholecystectomy. HISTORY OF PRESENT ILLNESS: This is a very pleasant 59-year-old gentleman who has a history of coronary artery disease, underwent bypass surgery in 1998 with quadruple bypass. He underwent repeat cardiac catheterization in 2015, which showed that the saphenous vein grafts to the right coronary and the left circumflex were completely occluded, and also the council vessels were occluded. There was some collateral filling from the left system into these vessels. He did have a patent JIANG to the left anterior descending artery. He had a saphenous vein graft which was a jump graft to a diagonal branch and one arm of this was occluded. The other arm remained patent and he did undergo an angioplasty and stent placement to the ostium of the diagonal branch, that was occluded too. He also at that time was noted to have a 50% stenosis in the ramus as well as a 40% ostial stenosis of the ramus branch also. His ejection fraction by echocardiogram in March of this year showed ejection fraction of 35%. He underwent an AICD implant in 2012 and had a change out in 2019 in March of this year. He had a PET scan approximately 1-1/2 years ago which was abnormal. He had had a repeat cardiac catheterization since that time and has been followed medically. He has been relatively asymptomatic. He is able to walk a mile without any significant symptoms. He denies any shortness of breath or chest pain. He does have a history of diabetes, but apparently this has been under reasonable control. When he first had his first myocardial infarction back in 1998, he was having shoulder and jaw pain, but he denies any chest pain. He has been followed routinely by Dr. Griffith, has been doing relatively well despite the severe decrease in left ventricular systolic function and has been asymptomatic as far as his heart is concerned, otherwise. PAST MEDICAL HISTORY: Significant for the coronary artery disease, bypass surgery, diabetes, hypertension, dyslipidemia, spinal stenosis both in the upper and lower back. He has rotator cuff problems. SOCIAL HISTORY: He smoked in the past, but stopped . No significant alcohol use. He is very active. ALLERGIES: HE IS ALLERGIC TO PENICILLIN. MEDICATIONS: Prior to admission included; 1. Atorvastatin. 2. Coreg. 3. Plavix. 4. Digoxin. 5. Insulin. 6. Victoza. 7. Betapace. 8. Metformin. 9. Vascepa. 10. Corlanor. 11. Oxycodone. 12. Entresto. 13. Glipizide. REVIEW OF SYSTEMS: A 12-point review of systems is unremarkable except what is noted in the history of present illness. PHYSICAL EXAMINATION: GENERAL: Reveals a well-developed, well-nourished, very pleasant gentleman who is in no acute distress at this time. He is alert, he is oriented, he is asymptomatic. VITAL SIGNS: Stable. Blood pressure is 107/59, heart rate is in the 50s to 60s, it shows a sinus rhythm, respiratory rate is 16, O2 saturations are 95%. HEENT: Show the head to be normocephalic and atraumatic. Carotid pulses are present. There are no bruits. There is no JVD noted. The thyroid did not appear to be enlarged. CHEST: Clear to auscultation without rales, rhonchi, or wheezing. CARDIOVASCULAR: Reveals a regular rate and rhythm with normal S1, S2. There is no S3 or S4. There are no significant murmurs, heaves, thrills, bruits, or rubs noted. There is a well-healed midline surgical incision after median sternotomy. There is a well-healed surgical incision over the AICD implant. ABDOMEN: Shows obesity, does have some tenderness in the right upper quadrant. Positive bowel sounds are present. EXTREMITIES: Show no clubbing, cyanosis, or edema. Pedal pulses, radial pulses, carotid pulses are present. NEUROLOGIC: The patient appears to be fully intact. He has normal strength and tone. SKIN: Warm and dry. PSYCHOSOCIAL: He appears to be absolutely normal. LABORATORY DATA: Show a WBC of 10, earlier was 13.9, hemoglobin is 11.3, platelet count of 223,000. His potassium is 3.5, BUN is 17 with a creatinine of 0.95, blood sugar is ranging from 164 to 207. His alkaline phosphatase is 370 with ALT of 188 and AST of 120. EKG shows a normal sinus rhythm. IMPRESSION: 1. This is a middle-aged gentleman with a history of coronary artery disease status post bypass surgery with decreased ejection fraction and myocardial infarction, who has undergone AICD implant which has been followed on a routine basis. He appears to be relatively asymptomatic with his coronary artery disease. He has been stable despite having severe disease and occluded grafts. Ejection fraction is compromised, but he appears to be asymptomatic as far as this is concerned, also he is on the appropriate medications. At this time, he is able to walk a mile without any symptoms and continues to do his daily living activities without symptoms. At this time, I suggest he would be a reasonable candidate to proceed with his laparoscopic cholecystectomy. He would be at least mild risks for acute cardiac events due to his history of coronary artery disease and diabetes; however, at this time, he appears to be relatively stable and most likely is performing more workload or METS than would be anticipated through his anesthesia or surgery itself. 2. Coronary artery disease which is stable. We will proceed with surgery. 3. Cardiomyopathy. He is status post AICD implant. This also appears to be stable, was recently changed out and checked in March 2019 and was found to be functioning normally. 4. Diabetes. This will be dealt with by the primary care service. 5. Hypercholesterolemia. This will also be dealt with by the primary care service, has been under reasonable control according to the patient. 6. Hypertension. This is also under very good control with medications. We will continue his present medications. Certainly should he have any renal insufficiency or problems with worsening of congestive heart failure, may consider stopping his metformin and switching to another medication or increasing the insulin. We will be more than happy to continue to follow the patient with you throughout his hospital course. Job ID: [id number]
--- NOTE | 2019-07-10 22:47 | PRG ---
DATE OF SERVICE: 07/10/2019 SUBJECTIVE: Mr. Shook is a 59-year-old man with a significant coronary artery disease history. The patient came to the hospital to evaluate right upper quadrant abdominal pain, nausea and vomiting. The patient was consulted with General Surgery with suspected acalculous cholecystitis. The patient was found to have suspected cholecystitis on ultrasound. HIDA scan otherwise failed to visualize gallbladder, common bile duct, or small bowel activity. Suspect hepatic dysfunction. The patient also has elevated LFT. Cardiology work also recommend the patient is low to medium risk of cholecystectomy, laparoscopy. Earlier today, Dr. Ely evaluated the patient. He said to consult Gastroenterology for evaluation and obtain hepatitis profile and minimize any hepatotoxic agents. The patient was seen and evaluated on round this evening. The patient is lying down in bed comfortably with no acute distress. He is afebrile. Vital signs are stable. He reports having 7 to 8 time of loose diarrhea today. The stools to be clear yellow in nature, a little bit of mucus at first and minimal then. There is no blood to be reported. His abdominal pain subsides, somehow again better after diarrhea, then no nausea or vomiting to be reported. The patient will be tested for hepatitis profile and C diff due to current antibiotic usage in the hospital. Job ID: [id number]
[2019-07-11] MEDS: Piperacillin/Tazobactam 3.375 GM in Sodium Chloride 0.9% 100 ML IVPB SCH ×4 (03:21→21:09)
[2019-07-11] MEDS: Morphine 4 MG/ML VIAL SLOW IVP PRN ×3 (03:22→21:08)
--- NOTE | 2019-07-11 06:18 | PDOC.FM ---
- Subjective Subjective: pt resting comfortably in bed, denies abdominal pain or nausea - Objective Vital Signs & Weight: Vital Signs (12 hours) Temp Pulse Resp BP Pulse Ox 07/11/19 03:05 98.1 F 65 14 123/58 L 95 07/10/19 23:02 53 L 07/10/19 20:00 98 07/10/19 19:41 98.0 F 53 L 16 121/58 L 98 Weight Admit Weight 109.452 kg Weight 111.039 kg I&O: 07/09/19 07/10/19 07/11/19 06:59 06:59 06:59 Intake Total 2710 3478 Output Total 400 400 Balance 2310 3078 Result Diagrams: 07/11/19 05:42 07/11/19 05:42 Phys Exam - Physical Examination Constitutional: NAD HEENT: moist MMs Neck: full ROM Gastrointestinal: no distention Musculoskeletal: no edema Neurological: moves all 4 limbs Psychiatric: normal affect Skin: no rash Dx/Plan (1) Atrial fibrillation Code(s): I48.91 - UNSPECIFIED ATRIAL FIBRILLATION Status: Acute (2) Coronary artery disease Code(s): I25.10 - ATHSCL HEART DISEASE OF [place] CORONARY ARTERY W/O ANG PCTRS Status: Acute (3) Diabetes mellitus type 2 with complications Code(s): E11.8 - TYPE 2 DIABETES MELLITUS WITH UNSPECIFIED COMPLICATIONS Status: Acute (4) Acute acalculous cholecystitis Code(s): K81.0 - ACUTE CHOLECYSTITIS Status: Suspected - Plan Plan: Suspected Acute Acalculous Cholecystitis WBC count WNL. Afebrile. s/p zosyn in ED -Dr. Ely with general surgery has been consulted, appreciate recs -US showed thickened GB wall, HIDA abdnormal, continue zosyn - ALT/AST uptrending - GI Dr. Dempsey consulted, appreciate recs Elevated troponin, downtrended Pt with h/o 5v CABG -Repeat EKG and trops for any chest pain, currently asymptomatic CAD s/p CABG and stents -Continue medications, but hold aspirin and plavix for surgery - consult cards, appreciate recs DM2 -continue home meds -Accuchecks q6h -SSI Paroxysmal a-fib -continue home meds CHF -Daily weights -Strict I/O's -Continue home meds Code status: Full Dispo: continue to eval for surgical intervention Addendum - Attending - Attending Attestation Date/Time: 07/11/19 2203 I personally evaluated the patient and discussed the management with Dr. Martinez. I agree with the History, Examination, Assessment and Plan documented above with any addition or exceptions noted below. Patient overall stable. Had diarrhea yesterday so CDiff screen pending and on precautions. Continue Zosyn for now. Awaiting GI and Gen Surgery recs regarding management of his biliary dysfunction. He has been cleared by Cardiology for surgery. We are currently waiting on specialist input for further mgmt.
[2019-07-11 06:26] LABS: #Eosinphils 0.2 thou/uL (0.0-0.7); #Monocytes 0.6 thou/uL (0.11-0.59); %Basophils 0.4 % (0.0-1.0); %Eosinophils 1.9 % (0.0-10.0); %Lymphocytes 10.9 % (21.0-51.0); %Monocytes 7.1 % (0.0-10.0); %Neutrophils 79.8 % (42.0-75.0); Hemoglobin 11.7 g/dL (14.0-18.0); Mean Corpuscular HGB CONC 32.7 g/dL (32.0-36.0); Mean Corpuscular Hemoglobin 29.1 pg (27.0-31.0); Mean Corpuscular Volume 89.2 fL (78.0-98.0); Platelet Count 255 thou/uL (130-400); RBC Distribution Width 12.3 % (11.5-14.5); Red Blood Cell (RBC) Count 4.03 mill/uL (4.70-6.10); White Blood Cell (WBC) Count 8.7 thou/uL (4.8-10.8)
[2019-07-11 06:37] LABS: ALT (SGPT) 131 U/L (8-55); AST (SGOT) 56 U/L (5-34); Alkaline Phosphatase 379 U/L (40-150); Anion Gap 19 mmol/L (10-20); BUN (Urea Nitrogen) 12 mg/dL (8.4-25.7); Bilirubin, Total 2.5 mg/dL (0.2-1.2); Calc. Creatinine Clearance 147 mL/min (70-130); Calcium 8.5 mg/dL (7.8-10.44); Carbon Dioxide 21 mmol/L (22-29); Chloride 102 mmol/L (98-107); Estimated GFR-MDRD Greater than 90; Globulin 2.7 g/dL (2.4-3.5); Glucose 191 mg/dL (70-105); Lipase 210 U/L (8-78); Potassium 3.8 mmol/L (3.5-5.1); Protein, Total 5.7 g/dL (6.0-8.3); Sodium 138 mmol/L (136-145)
--- NOTE | 2019-07-11 08:37 | CON ---
DATE OF CONSULTATION: REASON FOR CONSULT: Elevated liver enzymes. HISTORY OF PRESENT ILLNESS: Mr. Shook is a 59-year-old gentleman who has been seen by our service in the past for screening colonoscopy in 2016, and had a few polyps removed. Since then, he has not been seen. More recently, he developed abdominal pain and came to the hospital on 07/04. He reports that he has been having right upper quadrant epigastric pain that radiates to his back intermittently, worse with eating for several days with the pain got severe, he came to the hospital. Here, he had stable vital signs and no fever on presentation. He had a CT dissection protocol that showed a distended gallbladder. He also was shown to have mild cardiomegaly and enlarged liver with diffuse fatty infiltration. No common bile duct dilatation. After this, he had an ultrasound that again showed a distended gallbladder. No gallbladder wall thickening, 5 mm common bile duct. No gallstones. He returned to the emergency room on 07/08. At that time, [facility] admitted him for the same symptoms. When he returned, he had a white count of 13.9, indeterminate troponin, normal liver enzymes. He has been watched by General Surgery. He had a HIDA scan that showed nonfilling of the biliary tree or gallbladder. The delayed films showed the same. The radiologist felt this is possibly from hepatic dysfunction. This study was performed on 07/08. His blood pressure had been documented low a few times here on the floor. It is unclear to me what it was in the emergency room but on 07/09, it was 93/50, and 107/59 today. Apparently, he was started on some fluids yesterday he states. His pain is still present, not as bad as it was. He is not really eating very much. PAST MEDICAL HISTORY: Cardiomyopathy with previous defibrillator placement. He reports he sees Dr. Griffith and then he has had EF around 30% to 40%. Coronary artery disease with previous stents, diabetes, atrial fibrillation, history of spinal stenosis, rheumatoid arthritis, paroxysmal atrial fibrillation. PAST SURGICAL HISTORY: Five-vessel CABG, AICD placement, colonoscopy with polypectomy. FAMILY HISTORY: Hypertension, diabetes, and coronary artery disease. SOCIAL HISTORY: Denies alcohol, drugs, or tobacco. PRIMARY CARE: He goes to [facility]. REVIEW OF SYSTEMS: Negative for fever, chills, dysuria, frequency, urgency, prior history of icterus, hepatitis, no jaundice, sick contacts, contacts with anybody with acute hepatitis, nausea, vomiting, diarrhea. He denies chest pain or shortness of breath now. MEDICATIONS: 1. Vascepa. 2. Atorvastatin. 3. Coreg. 4. D5W. 5. Lanoxin. 6. Humalog. 7. Ivabradine. 8. LR at 100. 9. Morphine p.r.n. 10. Zofran p.r.n. 11. Zosyn. 12. Entresto. 13. Sotalol. Home medications; 1. Metformin. 2. Insulin. 3. Victoza. 4. Carvedilol. 5. Plavix. 6. Lipitor. 7. Digoxin. 8. Sotalol. 9. Oxycodone. 10. Glipizide. 11. Vascepa. 12. Corlanor. 13. Entresto. PHYSICAL EXAMINATION: VITAL SIGNS: Temperature 98, pulse 58, blood pressure 93/50. GENERAL: He is resting comfortably in bed. HEENT: He is nonicteric. Oropharynx, no lesions. NECK: Supple. No adenopathy. LUNGS: Clear. HEART: Regular rate and rhythm without clicks or murmurs. ABDOMEN: Soft. There is mild tenderness in right upper quadrant. There is no rebound. There is no guarding. EXTREMITIES: There is no peripheral edema. There is no JVD noted. LABORATORY STUDIES: Today, white count 10, hemoglobin 11, platelet count 223, MCV is 88. Sodium 137, potassium 3.5, bicarb 21, BUN 17, creatinine 0.9, glucose 176. Bilirubin is 3.7, AST and ALT are 120 and 188 with alkaline phosphatase of 370, bilirubin direct is 2.8, albumin is 2.9, protein is 5.6. On the 2nd, he had normal albumin, normal LFTs. ASSESSMENT: This is a 59-year-old with significant heart disease and heart failure who is admitted with right upper quadrant pain, fairly consistent with biliary colic, who has multiple imaging studies that showed a dilated gallbladder, normal common bile duct, normal LFTs and lipase on admission. He has was sent home and now he is back. He has a HIDA scan that does not show any filling of the gallbladder or biliary system. The radiologist felt this was from "intrinsic liver disease." This would be consistent with acute cholecystitis. He could have some hepatic dysfunction related to heart failure, passive congestion or ischemic hepatopathy as he has been hypotensive here. He shows no overt signs of sepsis. RECOMMENDATIONS: 1. I would get a cardiology consult today. I would get an echocardiogram today to signal constructor his cardiac risks as he is going to need a surgery, an ERCP or a cholecystostomy tube most likely. 2. He has had hepatitis panels which have been negative. I would repeat his LFTs in the morning. I will repeat his liver ultrasound with Dopplers to evaluate his hepatic flow and ask for assessment of the IVC for signs of passive congestion of the liver. I will also recheck the common bile duct for any signs of obstruction. At this point in time, the patient shows no evidence of cholangitis. It is unclear if this is an increased LFT secondary to obstructive process or hepatocellular process. We will follow along with you. Job ID: [id number]
--- NOTE | 2019-07-11 09:50 | ULT ---
ULTRASOUND HEPATIC DOPPLER: Date: 07/11/19 HISTORY: Right upper quadrant pain, nausea, vomiting, diarrhea, increase in liver function tests. COMPARISON: Ultrasound dated 07/08/19 and nuclear medicine study dated 07/09/19. FINDINGS: Visualized portions of the pancreas, aorta, and IVC are unremarkable. Diffuse increased hepatic echot exture. Portal vein is patent with antegrade flow. Normal phasicity and systolic velocity. The hepatic artery is patent. Right and left portal veins are patent. Liver measures 22 cm in length. Circumferential wall thickeni ng of the gallbladder without distention. Cyst inferior pole right kidney measuring up to 3.7 cm. No hydronephrosis or right renal mass. Normal size of the right kidney, which measures 13.0 x 6.0 x 6.1 cm. Common bile duct normal, measuring 3.0 mm. Hepatic veins are patent. Spleen not enlarged, measuring 11.1 cm in length. Artery and vein are patent. Left kidney measures 12.0 x 5.6 x 5.4 cm with an inferior pole cyst measuring 2.6 cm. Nonobstructing calculus inferior left renal collecting system. IMPRESSION: 1. Diffuse increase hepatic echotexture and hepatomegaly suggesting hepatocellular dysfunction which may be from steatosis or hepatitis. 2. Circumferential wall thickening of a nondistended gallbladder suggesting third spacing and conges tive changes from hepatocellular dysfunction. 3. Nonobstructing calculus inferior pole left kidney. 4. Bilateral renal cysts. 5. Adequate velocity and normal directional flow within the hepatic artery, hepatic veins, and justine l veins. POS: CET
[2019-07-11 11:01] LABS: INR-International Normal Ratio 1.1; PTT 26.7 SEC (22.9-36.1); Prothrombin Time 14.5 SEC (12.0-14.7)
[2019-07-11] MEDS ORDERED: Fentanyl 250 MCG/5 ML VIAL ONE (11:12)
[2019-07-11] MEDS ORDERED: Iothalamate Meglumine 60% 50 ML VIAL FS ONE (11:22)
[2019-07-11] MEDS ORDERED: Bupivacaine/Epinephrine 0.25% 30 ML VIAL ONE (11:22)
[2019-07-11] MEDS: Lactated Ringer's 1,000 ML IV SCH ×2 (11:24→16:29)
[2019-07-11] MEDS: Carvedilol 25 MG TAB PO SCH ×2 (11:24→21:07)
[2019-07-11] MEDS: Sacubitril 49 MG/Valsartan 51 MG TABLET PO SCH ×2 (11:24→21:08)
[2019-07-11] MEDS: Digoxin 0.125 MG TAB PO SCH (11:24)
[2019-07-11] MEDS: Ivabradine 5 MG TAB PO SCH ×2 (11:24→21:07)
[2019-07-11] MEDS: Sotalol HCl 80 MG TAB PO SCH ×2 (11:25→21:06)
--- NOTE | 2019-07-11 12:46 | PRG ---
DATE OF SERVICE: 07/11/2019 SUBJECTIVE: Mr. Shook has had some recurrence of right upper quadrant pain and nausea. No vomiting. Today, he is afebrile. Plan is for laparoscopic cholecystectomy with intraoperative cholangiogram later today. LFTs declined marginally with total bilirubin down to 2.5. PHYSICAL EXAMINATION: VITAL SIGNS: Temperature 97.9, pulse 88, blood pressure 132/71, and 95% oxygen saturation on room air. GENERAL: In no acute distress. HEART: Regular rate and rhythm. LUNGS: Clear to auscultation bilaterally. ABDOMEN: Bowel sounds present. Soft. Some tenderness to palpation in the upper abdomen. EXTREMITIES: No peripheral edema. LABORATORY STUDIES: WBC 8.7, hemoglobin 11.7, platelets 255. INR is 1.1. Sodium 138, potassium 3.8, BUN 12, creatinine 0.85. Total bilirubin down to 2.5, alkaline phosphatase 379, AST down to 56, ALT down to 131. Lipase is 210. Note that on admission, all LFTs and lipase were normal. Viral hepatitis serologies all negative. Urinalysis, negative. Abdominal ultrasound from earlier today demonstrates a common bile duct still normal in caliber at only 3 mm. There is heterogeneity of the liver suggesting hepatic steatosis or hepatitis. There is circumferential wall thickening of nondistended gallbladder. ASSESSMENT AND PLAN: 1. Probable acute acalculous cholecystitis. 2. LFT elevation, acute, but downtrending. Note, there is no demonstration of gallstones or common bile duct dilation on repeated abdominal ultrasound imaging. The fact that the LFTs were normal on admission and that he has no known history of prior liver dysfunction, argues against significant hepatic dysfunction. If this were related to drug toxicity, I would not expect the LFTs to improve today. I agree with the plan for laparoscopic cholecystectomy. Intraoperative cholangiogram is planned. I discussed with the patient and Dr. Ely that if the cholangiogram is positive for biliary obstruction, we could proceed with ERCP under the same anesthesia. I discussed this in detail with the patient and he desires to proceed. GI will continue to follow along. Job ID: [id number]
[2019-07-11] MEDS ORDERED: Succinylcholine Chloride 20 MG/ML 10 ml SYRINGE FS ONE (12:49)
[2019-07-11] MEDS ORDERED: Lidocaine 1% PF 5 ML VIAL ONE (12:49)
[2019-07-11] MEDS ORDERED: Rocuronium Bromide 10 MG/ML (10ML VIAL) ONE (12:49)
[2019-07-11] MEDS ORDERED: Glycopyrrolate 0.2 MG/ML 5 ML SYRINGE ONE (12:49)
[2019-07-11] MEDS ORDERED: Ondansetron PF 4 MG/2 ML Vial ONE (12:49)
[2019-07-11] MEDS ORDERED: Ondansetron HCl/PF 4 MG/2 ML Vial IVP PRN (14:34)
[2019-07-11] MEDS ORDERED: Promethazine HCl 25 MG/ML VIAL IM PRN ×2 (14:34→14:53)
[2019-07-11] MEDS ORDERED: Promethazine HCl 25 MG/ML VIAL SLOW IVP PRN ×2 (14:34→14:53)
[2019-07-11] MEDS ORDERED: HYDROmorphone 2 MG/ML VIAL SLOW IVP PRN (14:53)
[2019-07-11] MEDS ORDERED: Meperidine HCl/PF 25 MG/ML VIAL SLOW IVP PRN (14:53)
[2019-07-11] MEDS ORDERED: Fentanyl 100 MCG/2 ML VIAL ONE (14:55)
[2019-07-11] MEDS: HumaLOG 300 UNITS/3 ML VIAL SC PRN (19:32)
--- NOTE | 2019-07-11 21:46 | OP ---
DATE OF PROCEDURE: 07/11/2019 PREOPERATIVE DIAGNOSIS: Acute acalculous cholecystitis. POSTOPERATIVE DIAGNOSIS: Acute gangrenous acalculous cholecystitis. ANESTHESIA: General endotracheal. ESTIMATED BLOOD LOSS: 50 mL. FLUIDS GIVEN: 220 mL of platelets and 280 mL of crystalloids. COUNTS: Sponge and instrument counts were verified as correct x2. COMPLICATIONS: None apparent to operation. OPERATION PERFORMED: Laparoscopic cholecystectomy. INDICATIONS FOR OPERATION: This is a 59-year-old man with history of severe coronary artery disease and diabetes mellitus, who presented with recurrent epigastric right upper quadrant abdominal pain. Clinical radiographic examination was suggestive of acute acalculous cholecystitis, likely with choledocholithiasis for which the patient was brought to the operating room for planned laparoscopic cholecystectomy, intraoperative cholangiogram. Findings are however consistent with markedly dilated gallbladder in the usual anatomic location completely encased by dense omental adhesions. The cystic duct was quite small, difficult to cannulate for cholangiogram; therefore, cholangiogram was not performed. DESCRIPTION OF PROCEDURE: Informed consent was obtained from the patient and he was brought to the operating room and placed in supine position. Following general anesthesia, abdomen was sterilely prepped and draped in usual fashion. The skin below the umbilicus was infiltrated with 0.25% Marcaine with epinephrine. A small curvilinear infraumbilical incision was made using 11 scalpel. Umbilical stalk grasped with Rosa and elevated. Veress needle was inserted through the incision and placed in the peritoneal cavity through which the abdomen was insufflated with 4 L of CO2 gas. Intraabdominal pressure was noted at 1 mmHg. Following abdominal insufflation, Veress needle was removed and a 5 mm trocar introduced using a Visiport under laparoscopy. Laparoscopy confirmed proper placement of the port. No injuries to underlying structures. Additional laparoscopy reveals the right upper quadrant completely encased by omental adhesions. Under direct laparoscopy, a 12 mm epigastric and two 5 mm right lateral subcostal ports were placed after the overlying skin was infiltrated with 0.25% Marcaine with epinephrine. Appropriate incision was made. The patient was placed in a reverse Trendelenburg position, rotated to his left. I introduced a [place] dissector with cautery, using this to take down omental adhesions to reveal the fundus of the gallbladder. The [place] grasper was introduced through the right lateral subcostal port grasping the fundus of the gallbladder which was elevated cephalad. Omental adhesions were then tediously taken down from remainder of the gallbladder. There was a fair amount of oozing in the operative site; therefore, given the patient's history of being on Plavix, 6 packs of platelets were given which aided hemostasis. The cystic duct was then carefully dissected free from surrounding structures, identifying the triangle of Calot. The cystic artery was also dissected free from surrounding structures and the artery was divided between clips, applying 2 clips proximally and one clip at the junction of the cystic artery and gallbladder. The cystic duct was very small and difficult to cannulate for cholangiogram; therefore, we elected to abort cholangiography. The cystic duct was then divided between clips applying 2 clips proximally and one clip at the junction of the cystic duct and gallbladder. The gallbladder itself was removed from the liver bed using cautery. The back wall of the gallbladder was quite necrotic. The gallbladder was delivered of the abdominal cavity using an EndoCatch. Operative site was irrigated with saline. Minor oozing in the gallbladder fossa was readily controlled using Urvashi. Finding no other pathology, laparoscopy was terminated. Fascia of the epigastric port was closed using 0 Vicryl suture and Endoclosure device on the laparoscopy. The fascia was again closed anteriorly using interrupted suture of 2-0 Vicryl using a UR6 needle. Prior to fascia closure, #19 Rodri drain was introduced into the right upper quadrant and allowed to exit the abdominal cavity through the right lateral subcostal port. The drain was secured to anterior abdominal wall using 2-0 silk suture. Once the abdomen was desufflated, remainder of the incisions were closed using interrupted sutures of 4-0 Monocryl suture in subcuticular fashion. Dermabond was applied over incisional closure. Drain gauze was applied over the drain site. The patient tolerated the operation without any apparent complication and was returned to the recovery room in satisfactory condition. Job ID: [id number]
[2019-07-12] MEDS: HumaLOG 300 UNITS/3 ML VIAL SC PRN ×2 (00:23→19:10)
--- NOTE | 2019-07-12 00:49 | PRG ---
DATE OF SERVICE: 07/11/2019 SUBJECTIVE: Mr. Shook is a 59-year-old male who comes in to evaluation of right upper quadrant abdominal pain. He was found to have cholecystitis and elevated LFT. He has history of substantial coronary artery disease and he also had 7 episode of loose stool and diarrhea yesterday in which he was put under C. diff precaution. The patient underwent laparoscopic cholecystectomy today with Dr. Ely. During the procedure, the patient was found to have acute gangrenous acalculous cholecystitis. Postop, the patient has been doing good. He developed no fever or shortness of breath. Vital signs have been stable. He developed no chest pain. He had not had any episode of diarrhea since last night. His vital signs have been stable. He has drainage from cholecystectomy incision is around 30 mL with light red in color. The patient was seen and evaluated on round this evening, the patient lying down in bed comfortably with no acute distress. PHYSICAL EXAMINATION: LUNGS: Clear bilaterally. HEART: Regular rate and rhythm. ABDOMEN: Soft, asymmetric. Tender to touch of the incision sites. No peritoneal signs developed. EXTREMITY: Neurovascularly intact. NEUROLOGIC: No neuro focal deficits. PLAN: Would be to continue supportive care. Continue gastritis prophylaxis. Continue pain control. The patient is on a clear-liquid diet. Anticipate he can be full-liquid diet or regular diet as tolerated tomorrow. Await for C. difficile assay results. Job ID: [id number]
[2019-07-12] MEDS: Morphine 4 MG/ML VIAL SLOW IVP PRN ×3 (01:28→09:27)
[2019-07-12] MEDS: Lactated Ringer's 1,000 ML IV SCH (01:36)
[2019-07-12] MEDS: Piperacillin/Tazobactam 3.375 GM in Sodium Chloride 0.9% 100 ML IVPB SCH (05:26)
--- NOTE | 2019-07-12 06:25 | PDOC.FM ---
- Subjective Subjective: pt resting comfortably in bed, denies sob, reports pain - Objective Vital Signs & Weight: Vital Signs (12 hours) Temp Pulse Resp BP BP Pulse Ox 07/12/19 04:50 99.4 F 68 14 123/57 L 97 07/12/19 00:00 123/60 07/11/19 21:06 84 180/79 H 07/11/19 20:00 97.5 F L 84 18 180/79 H 95 Weight Admit Weight 109.452 kg Weight 111.039 kg I&O: 07/10/19 07/11/19 07/12/19 06:59 06:59 06:59 Intake Total 2710 3478 1360 Output Total 400 400 680 Balance 2310 3078 680 Result Diagrams: 07/12/19 06:25 07/12/19 06:25 Phys Exam - Physical Examination Constitutional: NAD HEENT: moist MMs Neck: supple Gastrointestinal: soft ttp Musculoskeletal: no edema Neurological: moves all 4 limbs Psychiatric: normal affect Skin: no rash Dx/Plan (1) Atrial fibrillation Code(s): I48.91 - UNSPECIFIED ATRIAL FIBRILLATION Status: Acute (2) Coronary artery disease Code(s): I25.10 - ATHSCL HEART DISEASE OF [place] CORONARY ARTERY W/O ANG PCTRS Status: Acute (3) Diabetes mellitus type 2 with complications Code(s): E11.8 - TYPE 2 DIABETES MELLITUS WITH UNSPECIFIED COMPLICATIONS Status: Acute (4) Acute acalculous cholecystitis Code(s): K81.0 - ACUTE CHOLECYSTITIS Status: Suspected - Plan Plan: Suspected Acute Acalculous Cholecystitis WBC count WNL. Afebrile. JEREMY bukrs -Dr. Ely with general surgery has been consulted, appreciate recs -US showed thickened GB wall, HIDA abdnormal - ALT/AST remain elevated, consider ERCP today - GI Dr. Dempsey consulted, appreciate recs Elevated troponin, downtrended Pt with h/o 5v CABG -Repeat EKG and trops for any chest pain, currently asymptomatic CAD s/p CABG and stents -Continue medications, resume aspirin and plavix per surgery - consult cards, appreciate recs DM2 -continue home meds -Accuchecks q6h -SSI Paroxysmal a-fib -continue home meds CHF -Daily weights -Strict I/O's -Continue home meds Code status: Full Dispo: s/p lap gary, further eval today for CBD stone, DC per surgery Addendum - Attending - Attending Attestation Date/Time: 07/12/19 [id number] I personally evaluated the patient and discussed the management with Dr. Martinez. I agree with the History, Examination, Assessment and Plan documented above with any addition or exceptions noted below. Patient overall doing well, has some mild pain this morning. Underwent Lap gary yesterday. He continues to be NPO at this time and awaiting repeat labs this morning. Possible MRCP/ERCP if labs are still consistent with biliary dysfunction. Awaiting those results and further GI/Gen Surg recs. Cardiac function stable, wean O2 as tolerated.
[2019-07-12 06:41] LABS: Hemoglobin 11.1 g/dL (14.0-18.0); Mean Corpuscular HGB CONC 33.7 g/dL (32.0-36.0); Mean Corpuscular Hemoglobin 29.5 pg (27.0-31.0); Mean Corpuscular Volume 87.5 fL (78.0-98.0); Mean Platelet Volume 7.6 fL (7.4-10.4); Platelet Count 270 thou/uL (130-400); RBC Distribution Width 12.4 % (11.5-14.5); Red Blood Cell (RBC) Count 3.77 mill/uL (4.70-6.10); White Blood Cell (WBC) Count 9.9 thou/uL (4.8-10.8)
[2019-07-12 06:56] LABS: Band 3 % (5-11); Hypochromia SLIGHT = 6-15 cells (100X) (0-5/hpf); Lymphocytes 19 % (21-51); MDiff Complete? YES; Monocytes 1 % (0-10); Neutrophil 77 % (42-75); Platelet Morphology Comment Appears Adequate
[2019-07-12 07:01] LABS: ALT (SGPT) 97 U/L (8-55); AST (SGOT) 51 U/L (5-34); Albumin 2.8 g/dL (3.5-5.0); Alkaline Phosphatase 356 U/L (40-150); Anion Gap 14 mmol/L (10-20); BUN (Urea Nitrogen) 9 mg/dL (8.4-25.7); Bilirubin, Direct 1.6 mg/dL (0.1-0.3); Calc. Creatinine Clearance 127 mL/min (70-130); Calcium 8.2 mg/dL (7.8-10.44); Carbon Dioxide 26 mmol/L (22-29); Chloride 100 mmol/L (98-107); Estimated GFR-MDRD 78; Glucose 254 mg/dL (70-105); Magnesium 1.7 mg/dL (1.6-2.6); Phosphorus 3.1 mg/dL (2.3-4.7); Potassium 3.7 mmol/L (3.5-5.1); Protein, Total 5.6 g/dL (6.0-8.3); Sodium 136 mmol/L (136-145)
[2019-07-12] MEDS ORDERED: Magnesium Sulfate 3 GM in Sodium Chloride 0.9% 100 ML IVPB SCH (09:15)
[2019-07-12] MEDS: Digoxin 0.125 MG TAB PO SCH (09:25)
[2019-07-12] MEDS: Sotalol HCl 80 MG TAB PO SCH ×2 (09:25→20:48)
[2019-07-12] MEDS: Ivabradine 5 MG TAB PO SCH ×2 (09:26→20:48)
[2019-07-12] MEDS: Carvedilol 25 MG TAB PO SCH ×2 (09:26→20:47)
[2019-07-12] MEDS: Sacubitril 49 MG/Valsartan 51 MG TABLET PO SCH ×2 (09:27→20:47)
--- NOTE | 2019-07-12 09:43 | PDOC.CPN ---
- Subjective Date: 07/12/19 Time: 09:43 Interval history: The pt seen and examined. No overnight events. No cardiac complaints. - Objective Allergies/Adverse Reactions: Allergies Allergy/AdvReac Type Severity Reaction Status Date / Time Penicillins Allergy Intermediate Rash Verified 07/09/19 18:12 Visit Medications: Current Medications Carvedilol (Coreg) 25 mg PO BID [facility] Last Admin: 07/12/19 09:26 Dose: 25 mg Dextrose/Water (Dextrose 50%) 25 gm SLOW IVP PRN PRN PRN Reason: Hypoglycemia Digoxin (Lanoxin) 0.125 mg PO DAILY [facility] Last Admin: 07/12/19 09:25 Dose: 0.125 mg Glucagon (Glucagon) 1 mg IM PRN PRN PRN Reason: Hypoglycemia Dextrose/Water (D5w) 1,000 mls @ 0 mls/hr IV .Q0M PRN PRN Reason: Hypoglycemia Lactated Ringer's (Lactated Ringer's) 1,000 mls @ 100 mls/hr IV .Q10H [facility] Last Admin: 07/12/19 01:36 Dose: 1,000 mls Magnesium Sulfate 3 gm/ Sodium (Chloride) 106 mls @ 53 mls/hr IVPB NOW [facility] Stop: 07/12/19 12:00 Insulin Human Lispro (Humalog) 0 units SC .MODERATE SLIDING SC PRN PRN Reason: Moderate Correctional Scale Last Admin: 07/12/19 00:23 Dose: 6 unit Ivabradine (Corlanor) 2.5 mg PO BID [facility] Last Admin: 07/12/19 09:26 Dose: 2.5 mg Morphine Sulfate (Morphine) 4 mg SLOW IVP Q4H PRN PRN Reason: Severe Pain (7-10) Last Admin: 07/12/19 09:27 Dose: 4 mg (Icosapent Ethyl [ (Vascepa] 2 Cap)) 2 cap PO BID [facility] Ondansetron HCl (Zofran Odt) 4 mg PO Q6H PRN PRN Reason: Nausea/Vomiting Last Admin: 07/10/19 17:31 Dose: 4 mg Sacubitril/Valsartan (Entresto 49 Mg-51 Mg Tablet) 1 tab PO BID [facility] Last Admin: 07/12/19 09:27 Dose: 1 tab Sodium Chloride (Flush - Normal Saline) 10 ml IVF Q12HR [facility] Last Admin: 07/12/19 09:27 Dose: 10 ml Sodium Chloride (Flush - Normal Saline) 10 ml IVF PRN PRN PRN Reason: Saline Flush Sotalol HCl (Betapace) 40 mg PO BID [facility] Last Admin: 07/12/19 09:25 Dose: 40 mg Vital Signs & Weight: Vital Signs Temp Pulse Resp BP Pulse Ox 07/12/19 09:25 64 07/12/19 08:40 98.4 F 64 16 125/67 95 07/12/19 04:50 99.4 F 68 14 123/57 L 97 07/12/19 00:00 123/60 Admit Weight 241 lb 4.8 oz Weight 248 lb 8 oz - Physical Exam General: alert & oriented x3 HEENT: mucus membranes moist Neck: supple neck Cardiac: regular rate and rhythm, S1/S2 Lungs: clear to auscultation Skin: clear Musculoskeletal: normal range of motion - Labs Result Diagrams: 07/12/19 06:25 07/12/19 06:25 Troponin/CKMB CK-MB (CK-2) 1.4 ng/mL (0-6.6) 07/08/19 17:14 Troponin I 0.074 ng/mL (< 0.028) H 07/08/19 20:35 - Telemetry Sinus rhythms and dysrhythmias: sinus rhythm (SR with V paced) - Assessment/Plan Assessment/Plan: 1. Prox Afib - remains in SR with V paced; On Coreg, Digoxin, Sotalol; Will resume ASA 81mg qd once cleared by Surgery team 2. Chronic systolic HF with AICD placement - stable; on Coreg, Corlanor; 3. s/p Ex lap cholecystectomy on 07/11/2019 4. CAD wtih hx of stent - stable; on Coreg; will resume Statin, Plavix, and ASA 81mg qd once cleared by Surgery team 5. DM type 2 - managed by PCP SHELBY reviewed Pt. seen and eval. by me. He feels better today. still some abd. discomfort. No arhythmias. Cardiac status is stable. I agree with the A/P by the [employer]. I will sign off. If any cardiac issues then please contact us again.
[2019-07-12 11:22] VITALS: BMI 33.7
--- NOTE | 2019-07-12 11:29 | PRG ---
DATE OF SERVICE: 07/12/2019 SUBJECTIVE: Mr. Shook underwent laparoscopic cholecystectomy yesterday with Dr. Ely. He was found to have severe gangrenous acute acalculous cholecystitis with a narrow cystic duct. The procedure was uncomplicated. This morning, the patient is feeling pretty well. He has minimal nausea. He has been tolerating fluids. He does have some generalized postoperative abdominal discomfort primarily in the right upper quadrant. He has not had any bowel movements. LFTs remain elevated, but are slightly down from yesterday. PHYSICAL EXAMINATION: VITAL SIGNS: Temperature 98.4, pulse 64, blood pressure 125/67, 95% oxygen saturation on 2 L nasal cannula. GENERAL: In no acute distress. HEART: Regular rate and rhythm. LUNGS: Clear to auscultation bilaterally. ABDOMEN: Bowel sounds hypoactive. The abdomen is soft. Some tenderness to palpation on the right side. No guarding or rebound tenderness. ELIZABET drain is in place with some serosanguineous fluid. EXTREMITIES: No peripheral edema. LABORATORY DATA: WBC 9.9, hemoglobin 11.1, platelets 270. INR 1.1. Sodium 136, potassium 3.7, BUN 9, creatinine 0.98. Total bilirubin down to 2.0, direct bilirubin 1.6, alkaline phosphatase 356, AST 51, ALT down to 97. ASSESSMENT AND PLAN: 1. Acute gangrenous acalculous cholecystitis, now status post laparoscopic cholecystectomy yesterday. 2. Elevated LFTs, secondary to gangrenous cholecystitis, slowly improving. I discussed the case with Dr. Ely as well as the patient this morning. The patient had acute LFT elevation in the context of gangrenous cholecystitis, but multiple ultrasound imaging exams demonstrating normal common bile duct diameter. The LFT elevation is likely just secondary to his severe cholecystitis and may take several days to resolve. I have low suspicion for any common bile duct stone. We are not planning on any ERCP. Dietary advancement per Surgical Service. I would recommend just following the LFTs through this hospitalization and then a couple of weeks post discharge. If they were to bump back up dramatically in the meantime, please let us know. Otherwise, GI will sign off at this time. Please call back anytime with questions or concerns. Job ID: [id number]
--- NOTE | 2019-07-12 15:09 | PRG ---
DATE OF SERVICE: 07/12/2019 SUBJECTIVE: Mr. Shook is a 59-year-old man, postop day #1, status post laparoscopic cholecystectomy for acute gangrenous acalculous cholecystitis. The patient is awake and alert today, reports adequate pain control. He tolerates clear liquid diet. OBJECTIVE: VITAL SIGNS: Today include blood pressure 125/67, pulse 64, respiratory rate 16, temperature is 98.4 degrees Fahrenheit, oxygen saturation 95% on 2 L by nasal cannula oxygen. HEART: Reveals regular rate and rhythm. LUNGS: Clear to auscultation bilaterally. Breathing, regular and nonlabored. ABDOMEN: Soft with incisional tenderness to palpation. He has no gross peritoneal signs on examination. Lex-Kimbrough drain returns 60 mL of serous fluid. NEUROLOGIC: Reveals no focal deficits present. LABORATORY FINDINGS: Include a CBC with 9900 white blood cells, hemoglobin and hematocrit are stable at 11.1 and 33.0 respectively. Platelet count is 270,000. Differential count as follows; 77% segmented neutrophils, 3 bands, 19 lymphocytes, and 1 monocyte. Metabolic profile; sodium 136, potassium 3.7, chloride is 100, bicarb is 26, BUN is 9, creatinine 0.98, glucose 254, magnesium is 1.7, phosphorus is 3.1, total bilirubin is slightly decreased at 2.0, AST and ALT are resolving at 51 and 97 respectively. IMPRESSION: 1. Postoperative day #1, status post laparoscopic cholecystectomy. 2. Acute gangrenous acalculous cholecystitis. 3. Acute hypokalemia. 4. Acute hypomagnesemia. 5. Acute hypophosphatemia. PLAN: 1. Correct abnormal electrolytes. 2. Advance diet as tolerated. 3. Increase activity per Physical and Occupational Therapy. Discussed with Gastroenterology, we will continue to monitor the patient as there seems to be no acute indication today for ERCP. Above findings and plan discussed with the patient and family at bedside. They indicated understanding of information given. I have answered his questions. Job ID: [id number] [facility]
[2019-07-12] MEDS ORDERED: traMADol HCl 50 MG TAB PO PRN ×2 (15:37)
[2019-07-12] MEDS: Morphine 2 MG/ML SYRINGE SLOW IVP PRN (20:45)
[2019-07-12] MEDS: Ibuprofen 800 MG TAB PO SCH (22:16)
--- NOTE | 2019-07-13 01:30 | PRG ---
DATE OF SERVICE: 07/13/2019 SUBJECTIVE: Mr. Shook is a 59-year-old male who comes for evaluation of right upper quadrant abdominal pain. He was found to have gangrenous cholecystitis and elevated LFTs. He has history of coronary artery disease. He underwent cholecystectomy with a diagnosis of gangrene acalculous cholecystitis. Postop, the patient reports doing better. Pain is well controlled. He reports his diarrhea had stopped. He has no nausea, vomiting, even though he reports has some burping. He does not have any gas or bowel yet. His vital signs have been stable. OBJECTIVE: GENERAL: The patient is lying down in bed comfortably with no acute distress. LUNGS: Clear bilaterally. HEART: Regular rate and rhythm. ABDOMEN: Soft, tender to touch of the incision site. No peritoneal signs developed. EXTREMITIES: Neurovascularly intact. NEUROLOGIC: No focal neurology deficits. PLAN: Will be to continue supportive care. Continue gastritis prophylaxis. Continue bowel rest. Diet as tolerated. Increase activity per Physical and Occupational Therapy. Job ID: [id number]
[2019-07-13] MEDS: Morphine 2 MG/ML SYRINGE SLOW IVP PRN ×2 (02:21→08:32)
--- NOTE | 2019-07-13 05:23 | PDOC.FM ---
- Subjective Subjective: Patient complains of some RUQ overnight, otherwise states he slept okay. Denies chest pain, palpitations, SOB. Telemetry overnight showed BBB in 60s bpm, 9 beats of Vtach, and 20 sec of AIVR. During these episodes nursing staff reports that patient was asymptomatic. - Objective Vital Signs & Weight: Vital Signs (12 hours) Temp Pulse Resp BP BP BP Pulse Ox 07/13/19 03:15 98.1 F 57 L 20 132/62 98 07/12/19 23:20 97.9 F 65 14 131/65 07/12/19 20:48 67 129/66 07/12/19 19:35 98.4 F 67 16 129/66 95 Weight Admit Weight 109.452 kg Weight 114.169 kg I&O: 07/11/19 07/12/19 07/13/19 06:59 06:59 06:59 Intake Total 3478 2910 1120 Output Total 400 1370 490 Balance 3078 1540 630 Result Diagrams: 07/12/19 06:25 07/13/19 04:27 Phys Exam - Physical Examination Constitutional: NAD HEENT: moist MMs, sclera anicteric Neck: no JVD, supple, full ROM Respiratory: no wheezing, no rhonchi, clear to auscultation bilateral Cardiovascular: RRR, no significant murmur Gastrointestinal: soft, no distention, positive bowel sounds TTP over RUQ, with minimal guarding Musculoskeletal: no edema, pulses present Neurological: moves all 4 limbs Psychiatric: normal affect, A&O x 3 Skin: no rash, normal turgor Dx/Plan (1) Atrial fibrillation Code(s): I48.91 - UNSPECIFIED ATRIAL FIBRILLATION Status: Acute Qualifiers: Atrial fibrillation type: unspecified Qualified Code(s): I48.91 - Unspecified atrial fibrillation (2) Coronary artery disease Code(s): I25.10 - ATHSCL HEART DISEASE OF [place] CORONARY ARTERY W/O ANG PCTRS Status: Acute Qualifiers: Coronary Disease-Associated Artery/Lesion type: unspecified vessel or lesion type [place] vs. transplanted heart: [place] heart Associated angina: with unspecified angina Qualified Code(s): I25.119 - Atherosclerotic heart disease of [place] coronary artery with unspecified angina pectoris (3) Diabetes mellitus type 2 with complications Code(s): E11.8 - TYPE 2 DIABETES MELLITUS WITH UNSPECIFIED COMPLICATIONS Status: Acute (4) Leukocytosis Code(s): D72.829 - ELEVATED WHITE BLOOD CELL COUNT, UNSPECIFIED Status: Acute Qualifiers: Leukocytosis type: other Qualified Code(s): D72.828 - Other elevated white blood cell count (5) Acute acalculous cholecystitis Code(s): K81.0 - ACUTE CHOLECYSTITIS Status: Suspected - Plan Plan: 59 yo Male presents with RUQ abdominal pain admitted for acalculous cholecystitis and elevated troponins: #Suspected Acute Acalculous Cholecystitis -WBC count WNL. Afebrile. DC zosyn on 07/12/19 -Dr. Ely with general surgery has been consulted, Lap Gary performed on , appreciate recs -US showed thickened GB wall, HIDA abnormal -ALT/AST remain elevated this morning but slightly trending down, Surgery is considering ERCP today -GI Dr. Dempsey consulted, do not plan ERCP at this point, recommend to repeat LFTs until discharge and then check again at 2 weeks post d/c, have signed off case as of 07/12/19 #Elevated troponin, downtrended Pt with h/o 5v CABG -Repeat EKG and trops for any chest pain, currently asymptomatic #CAD s/p CABG and stents -Consult Cardio: Continue medications, resume aspirin, statin, and plavix per surgery recs; signed off as of 07/12/19 #DM2 -continue home meds -Accuchecks q6h -SSI #Paroxysmal a-fib -continue home meds #CHF -Daily weights -Strict I/O's -Continue home meds Code status: FULL VTE PPx: SCDs Diet: Consistent Carb (1800 earl) Dispo: s/p lap gary day #2, await AM LFTs due to concern for further CBD stone , discharge per surgery recs. Addendum - Attending - Attending Attestation Date/Time: 07/13/19 1009 I personally evaluated the patient and discussed the management with Dr. Rashid. I agree with the History, Examination, Assessment and Plan documented above with any addition or exceptions noted below. Pt's abdominal pain is improved. He has tolerated his diet. Cleared by surgery for discharge.
[2019-07-13] MEDS: Ibuprofen 800 MG TAB PO SCH (05:28)
[2019-07-13 06:14] LABS: ALT (SGPT) 74 U/L (8-55); AST (SGOT) 29 U/L (5-34); Albumin 2.9 g/dL (3.5-5.0); Alkaline Phosphatase 332 U/L (40-150); Anion Gap 14 mmol/L (10-20); BUN (Urea Nitrogen) 7 mg/dL (8.4-25.7); Bilirubin, Direct 1.1 mg/dL (0.1-0.3); Bilirubin, Total 1.4 mg/dL (0.2-1.2); Calc. Creatinine Clearance 149 mL/min (70-130); Calcium 8.2 mg/dL (7.8-10.44); Carbon Dioxide 27 mmol/L (22-29); Chloride 97 mmol/L (98-107); Estimated GFR-MDRD Greater than 90; Glucose 265 mg/dL (70-105); Magnesium 2.2 mg/dL (1.6-2.6); Phosphorus 2.1 mg/dL (2.3-4.7); Potassium 3.5 mmol/L (3.5-5.1); Protein, Total 5.8 g/dL (6.0-8.3); Sodium 134 mmol/L (136-145)
[2019-07-13] MEDS: Ivabradine 5 MG TAB PO SCH (08:25)
[2019-07-13] MEDS: Digoxin 0.125 MG TAB PO SCH (08:25)
[2019-07-13] MEDS: Carvedilol 25 MG TAB PO SCH (08:25)
[2019-07-13] MEDS: Sacubitril 49 MG/Valsartan 51 MG TABLET PO SCH (08:26)
[2019-07-13] MEDS: Sotalol HCl 80 MG TAB PO SCH (08:26)
[2019-07-13] MEDS ORDERED: PHOS-NAK 1 PKT PACK PO SCH (10:00)
[2019-07-13 11:39] VITALS: BP 121/63; TEMP 98.1
[2019-07-13] MEDS: HumaLOG 300 UNITS/3 ML VIAL SC PRN (13:13)
[2019-07-13] MEDS ORDERED: metFORMIN 500 MG TAB PO SCH (17:00)
[2019-07-13] MEDS ORDERED: INSULIN GLARGINE HUM REC ANLOG 64 UNIT SC SCH (21:00)
[2019-07-13] MEDS ORDERED: Insulin Glargine 64 UNITS in Pre-Filled Syringe 1 EACH SC SCH (21:00)
[2019-07-13] MEDS ORDERED: Non-Formulary Item 1 EACH (Metformin Hcl [Metformin Hcl] 1 TAB) PO SCH (21:00)
[2019-07-13] MEDS ORDERED: glipiZIDE 10 MG TAB PO SCH ×2 (21:00)
--- NOTE | 2019-07-13 22:58 | EKG ---
Test Reason : Blood Pressure : / mmHG Vent. Rate : 076 BPM Atrial Rate : 076 BPM P-R Int : 138 ms QRS Dur : 100 ms QT Int : 404 ms P-R-T Axes : 033 063 020 degrees QTc Int : 454 ms Sinus rhythm with occasional Premature ventricular complexes Low voltage QRS Abnormal ECG Confirmed by ALBINA GARY M.D. ([id number]), editor managing director ELIJAH WILCOX ([id number]) on 07/13/2019 10:58:00 PM Referred By: Confirmed By:ALBINA GARY M.D.
[2019-07-14] MEDS ORDERED: PAK SC SCH (09:00)
[2019-07-14] MEDS ORDERED: VICTOZA SC SCH (09:00)
[2019-07-14] MEDS ORDERED: Clopidogrel Bisulfate 75 MG TAB PO SCH ×2 (09:00)
[2019-07-14] MEDS ORDERED: Non-Formulary Item 1 EACH (Liraglutide [Victoza 3-Pak] 1.8 MG) SC SCH (09:00)
--- NOTE | 2019-07-15 09:21 | DIS ---
DATE OF ADMISSION: 07/08/2019 DATE OF DISCHARGE: 07/13/2019 ADMITTING ATTENDING: Moo Martinez MD. DISCHARGE ATTENDING: Anette Dos Santos MD. CONSULTS: 1. Cardiology, Dr. Moss. 2. GI, Dr. Rosario. 3. General Surgery, Dr. Ely. 4. Walking Program. PROCEDURES: 1. Abdominal ultrasound on July 08, 2019. Results: Edematous gallbladder wall without gallstones. 2. HIDA scan on July 08, 2019. Results: There is tracer extraction by the liver without excretion into the biliary tract or small bowel loops or filling of the gallbladder at 4 hours post injection. Since the recent gallbladder ultrasound demonstrates no abnormal biliary ductal dilation, this finding is most likely due to hepatocellular dysfunction. As there is no biliary excretion, the possibility of cholecystitis cannot be excluded on the study. 3. Abdominal ultrasound on July 11, 2019. Results: Diffuse increased hepatic echotexture and hepatomegaly suggesting hepatocellular dysfunction, which maybe from steatosis or hepatitis. Circumferential wall thickening of a nondistended gallbladder suggesting third spacing and congestive changes from hepatocellular dysfunction. Nonobstructing calculus inferior pole of the left kidney. Bilateral renal cysts. Adequate velocity and normal directional flow within the hepatic artery, hepatic veins, and portal vein. 4. Cholecystectomy by Dr. Ely on July 11, 2019. PRIMARY DIAGNOSIS: Acute acalculous cholecystitis. SECONDARY DIAGNOSES: 1. Elevated troponin. 2. Coronary artery disease, status post coronary artery bypass graft and stent. 3. Diabetes mellitus type 2. 4. Paroxysmal atrial fibrillation. 5. Congestive heart failure. DISCHARGE MEDICATIONS: 1. Sotalol hydrochloride (Betapace) 40 mg p.o. b.i.d. 2. Liraglutide (Victoza) 1.8 mg subcu daily. 3. Carvedilol 25 mg one tab p.o. b.i.d. 4. Insulin glargine (Lantus) 64 units subcu q.p.m. 5. Metformin 1000 mg tabs one tab p.o. b.i.d. 6. Clopidogrel 75 mg one tab p.o. daily. 7. Atorvastatin 40 mg p.o. q.p.m. 8. Oxycodone Myristate (XTAMPZA ER) 18 mg capsules one cap full p.o. q.12 hours. 9. Icosapent ethyl (Vascepa) 1 g capsule two capsules p.o. b.i.d. 10. Entresto 49 mg-51 mg tablet one tab p.o. b.i.d. 11. Digoxin 0.125 mg p.o. daily. 12. Ibuprofen 800 mg p.o. q.8 hours. 13. Ivabradine (Corlanor) 2.5 mg p.o. b.i.d. DISCONTINUED MEDICATIONS: 1. Digoxin 250 mcg tablet 0.5 tablets p.o. daily. 2. Glipizide 10 mg tab one tablet p.o. b.i.d. 3. Ivabradine (Corlanor) 5 mg tabs 0.5 tab p.o. b.i.d. HISTORY OF PRESENT ILLNESS/HOSPITAL COURSE: The patient is a 59-year-old male with significant past medical historyOf CAD with CABG, diabetes mellitus type 2, atrial fibrillation, and CHF, who presents to the [place] ED complaining of right upper quadrant pain. The patient states that the pain started at the end of last week and has been progressively worsening. The patient noticed that the pain is worse after meals, so he was not eating much the last couple days. This improved his pain until today when it acutely worsened after eating a greasy gas station food. The patient denies any associated symptoms including chest pain, nausea, vomiting, diarrhea, and constipation. Initial workup in the ED showed the patient to have thickening and enlargement of his gallbladder with a white blood cell count of 13.9 and indeterminate level troponin. The patient denied any chest pain or shortness of breath. The patient was admitted to inpatient status on the medical floor for further workup of suspected acute acalculous cholecystitis. Surgery was consulted at this point, and Dr. Ely recommended a HIDA scan. The ED had started Zosyn which was continued on the floor. A repeat EKG was ordered and troponins were trended. On the morning of July 09, 2019, the patient was resting comfortably and reported that his abdominal pain and nausea had improved. Cardiology was consulted at this time for surgical clearance in case the patient needed a cholecystectomy performed. On the morning of July 10, 2019, the patient's LFT pattern suggested a biliary obstruction. However, the HIDA scan from July 09 had suggested hepatic dysfunction. At this point, GI was consulted to further evaluate the patient. That afternoon, Dr. Dempsey with GI saw the patient and recommended repeating his LFTs and liver ultrasound with Dopplers to evaluate hepatic flow and assessment of the IVC. He would also recheck the common bile duct for any signs of obstruction, but at that point thought the patient showed no evidence of acute cholangitis. Dr. Moss with Cardiology then saw the patient and determined that he was a reasonable candidate to proceed with a laparoscopic cholecystectomy. She continued his current medications. On the morning of July 11, 2019, Dr. Ely performed a laparoscopic cholecystectomy with an intraoperative cholangiogram. Pathology of the gallbladder showed acute and chronic cholecystitis along with focal areas of ulceration with necrosis. The patient otherwise tolerated the surgery well. His clinical condition continued to improve over the next 2 days and overall his abdominal pain and nausea continued to resolve. His cardiac function also remained stable. On the morning of July 13, 2019, the patient had tolerated advancement of his diet. He did not complain of any abdominal pain. He was also able to pass gas and have a bowel movement. At this point, he was cleared by Dr. Ely and the surgical team for discharge home. On the afternoon of July 13, 2019, the patient was discharged home with planned close followup with PCP at [facility] within seven days and with Surgery, Dr. Ely, in 10 days. PERTINENT LABS: Labs on July 08, 2019, admission labs. BMP; sodium 137, potassium 4.5, chloride 98, carbon dioxide 29, BUN 10, creatinine 0.88, glucose 135. AST 11, ALT 14, alkaline phosphatase 73. Troponin 0.158, 0.074. CBC; WBC 13.9, hemoglobin 12.8, hematocrit 38.3, platelets 275. Labs on July 10, 2019. CMP; sodium 137, potassium 3.5, chloride 101, carbon dioxide 21, BUN 17, creatinine 0.95, glucose 176. Total bilirubin 3.7, direct bilirubin 2.8, AST 120, ALT 188, alkaline phosphatase 370. CBC; WBC 10.0, hemoglobin 11.3, hematocrit 33.6, platelets 223. Labs on July 12, 2019. CMP; sodium 136, potassium 3.7, chloride 100, carbon dioxide 26, BUN 9, creatinine 0.98, glucose 254. Total bilirubin 2.0, direct bilirubin 1.6, AST 51, ALT 97, alkaline phosphatase 356. Labs on July 13, 2019, discharge labs. BMP; sodium 134, potassium 3.5, chloride 97, carbon dioxide 27, BUN 7, creatinine 0.86, glucose 265, calcium 8.2, phosphorus 2.1, magnesium 2.2. Total bilirubin 1.4, direct bilirubin 1.1, AST 29, ALT 74, alkaline phosphatase 332. DISPOSITION: Stable. DISCHARGE INSTRUCTIONS: 1. Location: Home. 2. Diet: Regular, advance as tolerated. 3. Activity: As tolerated. 4. Follow up with [facility] in 7 days. 5. Follow up with Dr. Jeffrey Ely in 10 days. Job ID: [id number]
--- NOTE | 2019-07-16 23:11 | DIS ---
DATE OF ADMISSION: 07/08/2019 DATE OF DISCHARGE: 07/13/2019 ADMITTING ATTENDING: Moo Martinez MD CONSULTS: 1. Gastroenterology, Aren Dempsey MD. 2. Cardiology, Yuki Moss MD. 3. General Surgery, Jeffrey Ely DO. PROCEDURE PERFORMED: Laparoscopic cholecystectomy. IMAGING: Abdominal ultrasound revealed thickened gallbladder wall. HIDA scan revealed possible hepatocellular dysfunction and incomplete filling of the gallbladder. Echocardiogram revealed a left ventricular ejection fraction visually estimated 30% to 35% with diastolic dysfunction as well. DISCHARGE MEDICATIONS: 1. Sotalol 40 mg p.o. b.i.d. 2. Victoza 1.8 mg subcutaneous daily. 3. Carvedilol 25 mg p.o. b.i.d. 4. Lantus 64 units subcutaneous q.p.m. 5. Metformin 1 tablet p.o. b.i.d. 6. Clopidogrel 75 mg p.o. daily. 7. Atorvastatin 40 mg p.o. q.p.m. 8. Oxycodone myristate 18 mg p.o. q.12 hours. 9. Vascepa 2 caps p.o. b.i.d. 10. Entresto one tab p.o. b.i.d. 11. Digoxin 0.125 mg p.o. daily. 12. Ibuprofen 800 mg p.o. q.8 hours. 13. Corlanor 2.5 mg p.o. b.i.d. DISCONTINUED MEDICATIONS: 1. Digoxin 0.5 tabs p.o. daily. 2. Corlanor 0.5 tab p.o. b.i.d. 3. Glipizide 1 tab p.o. b.i.d. DISCHARGE DIAGNOSIS: Acute acalculous cholecystitis with transaminitis. SECONDARY DIAGNOSES: 1. Coronary artery disease. 2. Diabetes mellitus type 2. 3. Paroxysmal atrial fibrillation. 4. Congestive heart failure. HISTORY OF PRESENT ILLNESS/HOSPITAL COURSE: Mr. Shook is a 59-year-old male, who initially presented to the emergency department with right upper quadrant pain starting at the end of last week and progressively worsened, decreased p.o. intake as the food was worse after consuming meals. No associated symptoms present at that time. Ultrasound in the emergency department showed a thickening of the gallbladder wall, so the patient was admitted for further evaluation for gallbladder disease. HIDA obtained from the ER was abnormal. Surgery was consulted. Liver enzymes bumped, so GI was consulted. Intraoperative cholangiogram did not reveal any stones in the common bile duct. The patient was continued to be monitored after his laparoscopic cholecystectomy, which he underwent without any complications. Cardiology was consulted for risk stratification for patient's cardiac disease. The patient continued to remain stable after his laparoscopic cholecystectomy and was discharged home in stable conditions. DISCHARGE INSTRUCTIONS: 1. Location: Home. 2. Diet: Heart healthy, diabetic. 3. Activity: As tolerated. 4. Followup: Followup with PCP in the next 3 to 7 days and Surgery, Dr. Jeffrey Ely, in the next 2 weeks. Job ID: [id number]
== END 2019-07-13 14:24 | disposition home or self-care (01) | DRG 418 ==
LOC: ERS 16:14 → ERHOLD 20:44 → 2NO 07-09 16:05
PROVIDERS: ADMIT Student in an Organized Health Care Education/Training Program; ATTEND Student in an Organized Health Care Education/Training Program
PROC: 0FT44ZZ Resection of Gallbladder, Percutaneous Endoscopic Approach (ICD-10-PCS; principal; 2019-07-11)
DX: K81.0 Acute cholecystitis (principal); I50.22 Chronic systolic (congestive) heart failure; K82.A1 Gangrene of gallbladder in cholecystitis; I25.10 Atherosclerotic heart disease of native coronary artery without angina pectoris; E11.9 Type 2 diabetes mellitus without complications; I48.91 Unspecified atrial fibrillation; M06.9 Rheumatoid arthritis, unspecified; D72.829 Elevated white blood cell count, unspecified; R77.8 Other specified abnormalities of plasma proteins; I48.0 Paroxysmal atrial fibrillation; I11.0 Hypertensive heart disease with heart failure; F17.210 Nicotine dependence, cigarettes, uncomplicated; D69.1 Qualitative platelet defects; R79.89 Other specified abnormal findings of blood chemistry; E87.6 Hypokalemia; E83.42 Hypomagnesemia; E83.39 Other disorders of phosphorus metabolism; Z88.0 Allergy status to penicillin; Z95.1 Presence of aortocoronary bypass graft; Z79.4 Long term (current) use of insulin; Z79.84 Long term (current) use of oral hypoglycemic drugs; Z79.899 Other long term (current) drug therapy; I25.2 Old myocardial infarction; Z95.810 Presence of automatic (implantable) cardiac defibrillator; Z79.02 Long term (current) use of antithrombotics/antiplatelets
CPT/HCPCS: 36415; 36416; 36430; 71275; 76705; 78226; 80048; 80053; 80074; 80076; 81003; 82248; 82553; 83605; 83690; 83735; 84100; 84484; 85007; 85025; 85027; 85610; 85730; 86850; 86900; 86901; 88304; 93005; 93306; 96361; 96365; 96374; 96375; 96376; A9537; J2001; J2270; J2405; J2543; J2550; J3010; J3475; J3490; P9035; Q0162; Q9966

== ENCOUNTER 2020-02-18 06:02 | Inpatient (IN) | payer MEDICARE ==
[2020-02-18] MEDS ORDERED: Digoxin 0.5 MG/2 ML AMP ONE ×2 (06:27→06:34)
[2020-02-18 06:38] LABS: #Eosinphils 0.3 thou/uL (0.0-0.7); #Lymphocytes 2.3 thou/uL (1.20-3.40); #Monocytes 0.7 thou/uL (0.11-0.59); #Neutrophils 6.4 thou/uL (1.40-6.50); %Basophils 0.2 % (0.0-1.0); %Eosinophils 2.8 % (0.0-10.0); %Lymphocytes 23.5 % (21.0-51.0); %Monocytes 6.8 % (0.0-10.0); %Neutrophils 66.7 % (42.0-75.0); Hemoglobin 13.4 g/dL (14.0-18.0); Mean Corpuscular HGB CONC 33.2 g/dL (32.0-36.0); Mean Corpuscular Hemoglobin 29.5 pg (27.0-31.0); Mean Corpuscular Volume 88.7 fL (78.0-98.0); Mean Platelet Volume 7.8 fL (7.4-10.4); Platelet Count 278 thou/uL (130-400); RBC Distribution Width 12.8 % (11.5-14.5); Red Blood Cell (RBC) Count 4.56 mill/uL (4.70-6.10); White Blood Cell (WBC) Count 9.7 thou/uL (4.8-10.8)
[2020-02-18 06:49] LABS: ALT (SGPT) 13 U/L (8-55); AST (SGOT) 11 U/L (5-34); Albumin 3.7 g/dL (3.5-5.0); Alkaline Phosphatase 62 U/L (40-110); Anion Gap 16 mmol/L (10-20); BUN (Urea Nitrogen) 10 mg/dL (8.4-25.7); Bilirubin, Total 0.5 mg/dL (0.2-1.2); Calc. Creatinine Clearance 0 mL/min (70-130); Calcium 8.7 mg/dL (7.8-10.44); Carbon Dioxide 21 mmol/L (22-29); Chloride 99 mmol/L (98-107); Estimated GFR-MDRD Greater than 90; Globulin 3.2 g/dL (2.4-3.5); Glucose 251 mg/dL (70-105); Magnesium 1.7 mg/dL (1.6-2.6); Potassium 4.2 mmol/L (3.5-5.1); Protein, Total 6.9 g/dL (6.0-8.3); Sodium 132 mmol/L (136-145)
[2020-02-18 07:01] LABS: Digoxin 0.24 ng/mL (0.8-2.0)
[2020-02-18] MEDS ORDERED: Dextrose 5% in Water 1,000 ML IV PRN (07:49)
[2020-02-18] MEDS ORDERED: Dextrose 50% Abboject 50 ML SYRINGE SLOW IVP PRN (07:49)
[2020-02-18] MEDS ORDERED: HumaLOG 300 UNITS/3 ML VIAL SC PRN (07:49)
[2020-02-18 07:57] LABS: Hemoglobin A1c 9.2 % (4.0-6.0)
[2020-02-18] MEDS ORDERED: Magnesium Sulfate 3 GM in Sodium Chloride 0.9% 100 ML IVPB SCH ×2 (08:00→10:30)
--- NOTE | 2020-02-18 08:07 | PDOC.FPRHP ---
- History of Present Illness Chief Complaint: Rapid heart rate History of Present Illness: 60 yo M w/hx of pAfib, HFrEF, CAD s/p CABG and DM2 here with complaint of rapid heart rate that woke him from his sleep this morning. He states that at about 0345 a feeling of palpitations woke him from his sleep. He denies associated CP , SOB, dizziness, n/v, or diaphoresis. No neuro symptom such as weakness or numbness. He notes that this felt like a previous episode of RVR. He denies any recent changes in meds. Upon arrival to the ER and EKG was c/w afib w/RVR vs a flutter. He was given 1 dose of dig 0.25mg with resolution of tachycardia. At the time of this H&P he denies all symptoms. ED Course: as above - Allergies/Adverse Reactions Allergies Allergy/AdvReac Type Severity Reaction Status Date / Time Penicillins Allergy Intermediate Rash Verified 01/27/20 04:57 - Home Medications Medication Instructions Recorded Confirmed Type Atorvastatin Calcium [Lipitor] 40 mg PO QPM 08/31/16 02/18/20 History Carvedilol 1 tab PO BID 08/31/16 02/18/20 History Clopidogrel Bisulfate [Clopidogrel] 1 tab PO DAILY 08/31/16 02/18/20 History Insulin Glargine,Hum.Rec.Anlog 64 unit SC QPM 08/31/16 02/18/20 History [Lantus Solostar] Liraglutide [Victoza 3-Jt] 1.8 mg SC DAILY 08/31/16 02/18/20 History Sotalol HCl [Betapace] 40 mg PO BID 08/31/16 02/18/20 History metFORMIN HCl 1 tab PO BID 08/31/16 02/18/20 History Icosapent Ethyl [Vascepa] 2 cap PO BID 07/08/19 02/18/20 History Sacubitril/Valsartan 49/51 1 tab PO BID 07/08/19 02/18/20 History [Entresto 49 mg-51 mg Tablet] Digoxin [Lanoxin] 0.125 mg PO DAILY #30 tab 07/13/19 02/18/20 Rx Ivabradine [Corlanor] 2.5 mg PO BID #60 tab 07/13/19 02/18/20 Rx Pioglitazone HCl [Actos] 15 mg PO DAILY 02/18/20 02/18/20 History - History PMHx: CAD DM2 Paroxysmal afib HLD Hypomagnesemia HTN HFrEF PSHx: CABG CA stent AICD placement Social: Past 20pack year hx, quit over 20 years ago Social etoh no drugs - Review of Systems General: denies: fever/chills, weight/appetite/sleep changes Eyes: denies: vision changes Respiratory: denies: cough, congestion, shortness of breath, exercise intolerance Cardiovascular: reports: palpitation. denies: chest pain, edema, paroxysmal nocturnal dyspnea Gastrointestinal: denies: nausea, vomiting Genitourinary: denies: dysuria, polyuria Skin: denies: rashes Musculoskeletal: denies: pain, tenderness, stiffness Neurological: denies: numbness, syncope, weakness Psychological: denies: anxiety, depression - Vital signs BP: 104/79, Pulse: 143, Resp: 16, Temp: 97.9 (Oral), O2 sat: 98 on (Room Air), Time: 02/18/2020 06:02. - Physical Exam Constitutional: NAD, awake, alert and oriented HEENT: normocephalic and atraumatic, EOMI Neck: trachea midline Chest: no-tender to palpation, no lesions Heart: normal S1/S2, no murmurs/rubs/gallops -Heart: irregularly irregular Lungs: CTAB, no respiratory distress, good air movement Abdomen: non-tender Musculoskeletal: normal structure, ROM grossly normal Neurological: CN II-XII intact Skin: no rash/lesions Heme/Lymphatic: no unusual bruising or bleeding Psychiatric: normal mood and affect, good judgment and insight FMR H&P: Results - Labs Result Diagrams: 02/18/20 06:26 02/18/20 06:26 Lab results: WBC 9.7 thou/uL (4.8-10.8) 02/18/20 06:26 Hgb 13.4 g/dL (14.0-18.0) L 02/18/20 06:26 Hct 40.5 % (42.0-52.0) L 02/18/20 06:26 MCV 88.7 fL (78.0-98.0) 02/18/20 06:26 Plt Count 278 thou/uL (130-400) 02/18/20 06:26 Neutrophils % 66.7 % (42.0-75.0) 02/18/20 06:26 Sodium 132 mmol/L (136-145) L 02/18/20 06:26 Potassium 4.2 mmol/L (3.5-5.1) 02/18/20 06:26 Chloride 99 mmol/L (98-107) 02/18/20 06:26 Carbon Dioxide 21 mmol/L (22-29) L 02/18/20 06:26 BUN 10 mg/dL (8.4-25.7) 02/18/20 06:26 Creatinine 0.83 mg/dL (0.7-1.3) 02/18/20 06:26 Glucose 251 mg/dL (70-105) H 02/18/20 06:26 Calcium 8.7 mg/dL (7.8-10.44) 02/18/20 06:26 Total Bilirubin 0.5 mg/dL (0.2-1.2) 02/18/20 06:26 AST 11 U/L (5-34) 02/18/20 06:26 ALT 13 U/L (8-55) 02/18/20 06:26 Alkaline Phosphatase 62 U/L (40-110) 02/18/20 06:26 B-Natriuretic Peptide 56.6 pg/mL (0-100) 02/18/20 06:26 Serum Total Protein 6.9 g/dL (6.0-8.3) 02/18/20 06:26 Albumin 3.7 g/dL (3.5-5.0) 02/18/20 06:26 Laboratory Tests 02/18/20 06:26 Digoxin 0.24 L - EKG Interpretation EKG: Afib, rate 149. No ST or Twave changes FMR H&P: A/P - Problem List (1) Atrial fibrillation with RVR Current Visit: Yes Status: Acute Code(s): I48.91 - UNSPECIFIED ATRIAL FIBRILLATION (2) DM2 (diabetes mellitus, type 2) Current Visit: Yes Status: Chronic (3) HTN (hypertension) Current Visit: Yes Status: Chronic Code(s): I10 - ESSENTIAL (PRIMARY) HYPERTENSION (4) HLD (hyperlipidemia) Current Visit: Yes Status: Chronic Code(s): E78.5 - HYPERLIPIDEMIA, UNSPECIFIED (5) Hypomagnesemia Current Visit: Yes Status: Chronic Code(s): E83.42 - HYPOMAGNESEMIA (6) HFrEF (heart failure with reduced ejection fraction) Current Visit: Yes Status: Chronic Code(s): I50.20 - UNSPECIFIED SYSTOLIC ( CONGESTIVE) HEART FAILURE (7) Coronary artery disease Current Visit: No Status: Chronic Code(s): I25.10 - ATHSCL HEART DISEASE OF [place] CORONARY ARTERY W/O ANG PCTRS Qualifiers: Coronary Disease-Associated Artery/Lesion type: bypass graft [place] vs. transplanted heart: [place] heart Associated angina: with unspecified angina Qualified Code(s): I25.709 - Atherosclerosis of coronary artery bypass graft(s) , unspecified, with unspecified angina pectoris - Plan 1. Afib with RVR - currently rate controlled. Admit to tele for continued motor - consider CCB or BB if rate worsens - unclear precipitating cause. No concern for infection or MD at this time - due to paroxysmal nature, plant to start DOAC. - due to infrequent episodes, will not increase dig at this time 2. Hypo Mg - replace IV, recheck in am 3. CAD - trop neg, restart home meds 4. DM2 - home meds - accucheck achs - current A1c 9.2 - low carb diet 5. HTN - restart home meds PPx - DOAC Diet low carb, HH Code Full Disposition/LOS: Patient in good condition. Would expect 2-3 days of hospitalization with discharge home. Addendum - Attending - Attending Attestation Date/Time: 02/18/20 8166 I personally evaluated the patient and discussed the management with Dr. Mercer. I agree with the History, Examination, Assessment and Plan documented above with any addition or exceptions noted below. Patient with chronic Afib here with RVR. Now in NSR. S/P Digoxin bolus. Will monitor on telemetry and see if recurs. No known trigger at this time. Further mgmt pending clinical course. Continue home meds for chronic conditions.
--- NOTE | 2020-02-18 08:50 | RAD ---
PORTABLE CHEST: Date: 02/18/2020 HISTORY: Tachycardia. COMPARISON: 08/11/2014. FINDINGS: Mild cardiomegaly. A single AICD lead is again noted. Postop sternotomy change. The lungs appear clear. No infiltrate, vascular congestion, or effusion. IMPRESSION: No acute process identified. POS: [facility]
[2020-02-18] MEDS ORDERED: Apixaban 5 MG TAB PO SCH ×3 (09:00→21:00)
[2020-02-18 09:31] VITALS: BMI 33.6
[2020-02-18] MEDS ORDERED: Ivabradine 5 MG TAB PO SCH (10:45)
[2020-02-18] MEDS ORDERED: Digoxin 0.125 MG TAB PO SCH (10:45)
[2020-02-18] MEDS ORDERED: Carvedilol 25 MG TAB PO SCH (10:45)
[2020-02-18] MEDS ORDERED: Sacubitril 49 MG/Valsartan 51 MG TABLET PO SCH (10:45)
[2020-02-18] MEDS ORDERED: Clopidogrel Bisulfate 75 MG TAB PO SCH (10:45)
[2020-02-18] MEDS ORDERED: Icosapent Ethyl 1 GM CAPSULE PO SCH (10:45)
[2020-02-18] MEDS ORDERED: Sotalol HCl 80 MG TAB PO SCH (10:45)
[2020-02-18] MEDS ORDERED: metFORMIN 500 MG TAB PO SCH (11:15)
[2020-02-18] MEDS: HumaLOG 300 UNITS/3 ML VIAL SC PRN ×2 (12:43→18:51)
[2020-02-18] MEDS: HYDROcodone/Acetaminophen 5/325 mg Tablet PO PRN ×2 (16:31→21:10)
[2020-02-18] MEDS: metFORMIN 500 MG TAB PO SCH (16:32)
[2020-02-18] MEDS: Icosapent Ethyl 1 GM CAPSULE PO SCH (16:33)
[2020-02-18] MEDS ORDERED: INSULIN GLARGINE HUM REC ANLOG 64 UNIT SC SCH (21:00)
[2020-02-18] MEDS ORDERED: Insulin Glargine 40 UNITS in Pre-Filled Syringe 1 EACH SC SCH (21:00)
[2020-02-18] MEDS ORDERED: OXYCODONE MYRISTATE 18 MG PO SCH (21:00)
[2020-02-18] MEDS ORDERED: Atorvastatin Calcium 40 MG TAB PO SCH (21:00)
[2020-02-18] MEDS ORDERED: Insulin Glargine 64 UNITS in Pre-Filled Syringe 1 EACH SC SCH (21:00)
[2020-02-18] MEDS: Sacubitril 49 MG/Valsartan 51 MG TABLET PO SCH (21:03)
[2020-02-18] MEDS: Sotalol HCl 80 MG TAB PO SCH (21:03)
[2020-02-18] MEDS: Apixaban 5 MG TAB PO SCH (21:04)
[2020-02-18] MEDS: Carvedilol 25 MG TAB PO SCH (21:04)
[2020-02-18] MEDS: Ivabradine 5 MG TAB PO SCH (21:07)
[2020-02-19] MEDS: HYDROcodone/Acetaminophen 5/325 mg Tablet PO PRN ×2 (02:55→08:54)
[2020-02-19 05:26] LABS: ALT (SGPT) 11 U/L (8-55); AST (SGOT) 12 U/L (5-34); Albumin 3.5 g/dL (3.5-5.0); Alkaline Phosphatase 48 U/L (40-110); Anion Gap 13 mmol/L (10-20); BUN (Urea Nitrogen) 11 mg/dL (8.4-25.7); Bilirubin, Total 0.3 mg/dL (0.2-1.2); Calc. Creatinine Clearance 154 mL/min (70-130); Calcium 8.5 mg/dL (7.8-10.44); Carbon Dioxide 24 mmol/L (22-29); Chloride 105 mmol/L (98-107); Estimated GFR-MDRD Greater than 90; Globulin 2.9 g/dL (2.4-3.5); Glucose 211 mg/dL (70-105); Magnesium 1.9 mg/dL (1.6-2.6); Potassium 4.1 mmol/L (3.5-5.1); Protein, Total 6.4 g/dL (6.0-8.3); Sodium 138 mmol/L (136-145)
--- NOTE | 2020-02-19 07:07 | PDOC.FM ---
- Subjective Subjective: Mr. Shook reports feeling well this am. He has no complaints. Has been in NSR overnight. Says he is ready to go home. - Objective Vital Signs & Weight: Vital Signs (12 hours) Temp Pulse Resp BP Pulse Ox 02/19/20 03:37 97.8 F 76 18 120/58 L 96 02/18/20 23:35 82 122/58 L 02/18/20 21:03 81 02/18/20 19:45 97.7 F 81 18 126/64 96 Weight Weight 112.4 kg I&O: 02/18/20 02/19/20 02/20/20 06:59 06:59 06:59 Intake Total 960 Output Total 800 Balance 160 Result Diagrams: 02/18/20 06:26 02/19/20 04:48 Phys Exam - Physical Examination Constitutional: NAD Respiratory: clear to auscultation bilateral Cardiovascular: RRR, no significant murmur Gastrointestinal: soft, non-tender Neurological: non-focal Psychiatric: normal affect Skin: normal turgor Dx/Plan - Plan Plan: 1. Afib with RVR - NSR overnight - unclear precipitating cause. No concern for infection or DC at this time - due to paroxysmal nature, DOAC started - due to infrequent episodes, will not increase dig at this time 2. Hypo Mg - replace IV, recheck in am 3. CAD - trop neg, continue home meds 4. DM2 - home meds - accucheck achs - current A1c 9.2, patient to discuss further insulin adjustments with PCP. Patient note this is improved compared to prior. - low carb diet 5. HTN - Continue home meds PPx - DOAC Diet low carb, HH Code Full Disposition/LOS: Plan for discharge today. Addendum - Attending - Attending Attestation Date/Time: 02/19/20 1121 I personally evaluated the patient and discussed the management with Dr. Smith. I agree with the History, Examination, Assessment and Plan documented above with any addition or exceptions noted below. Patient stable. Has been in NSR since admission. Discharge with further mgmt by PCP and cardiology outpatient.
[2020-02-19] MEDS: HumaLOG 300 UNITS/3 ML VIAL SC PRN ×2 (08:49→12:06)
[2020-02-19] MEDS: Sotalol HCl 80 MG TAB PO SCH (08:51)
[2020-02-19] MEDS: Icosapent Ethyl 1 GM CAPSULE PO SCH (08:51)
[2020-02-19] MEDS: metFORMIN 500 MG TAB PO SCH (08:53)
[2020-02-19] MEDS: Sacubitril 49 MG/Valsartan 51 MG TABLET PO SCH (08:53)
[2020-02-19] MEDS: Apixaban 5 MG TAB PO SCH (08:56)
[2020-02-19] MEDS: Carvedilol 25 MG TAB PO SCH (08:57)
[2020-02-19] MEDS: Ivabradine 5 MG TAB PO SCH (08:57)
[2020-02-19] MEDS ORDERED: Liraglutide [Victoza 3-Pak] 1.8 MG SC SCH (09:00)
[2020-02-19] MEDS ORDERED: Digoxin 0.125 MG TAB PO SCH (09:00)
[2020-02-19] MEDS ORDERED: Clopidogrel Bisulfate 75 MG TAB PO SCH (09:00)
[2020-02-19 12:21] VITALS: BP 140/68; TEMP 97.7
--- NOTE | 2020-02-20 08:00 | DIS ---
DATE OF ADMISSION: 02/18/2020 DATE OF DISCHARGE: 02/19/2020 RESIDENT: Lorena Smith DO ADMITTING ATTENDING: Moo Martinez MD DISCHARGE ATTENDING: Moo Martinez MD. CONSULTS: None. PROCEDURES PERFORMED: None. PRIMARY DIAGNOSES: 1. Atrial fibrillation with rapid ventricular rate, resolved. 2. Hypomagnesemia. SECONDARY DIAGNOSES: 1. Coronary artery disease. 2. Type 2 diabetes. 3. Hypertension. DISCHARGE MEDICATIONS: 1. Sotalol 40 mg p.o. b.i.d. 2. Liraglutide 1.8 mg subcu daily. 3. Carvedilol 25 mg one tab p.o. b.i.d. 4. Lantus 64 units subcu q.p.m. 5. Metformin 1000 mg p.o. b.i.d. 6. Clopidogrel 75 mg one tab p.o. daily. 7. Lipitor 40 mg p.o. q.p.m. 8. Vascepa two capsules p.o. b.i.d. 9. Entresto one tab p.o. b.i.d. 10. Digoxin 0.125 mg p.o. daily. 11. Corlanor 2.5 mg p.o. b.i.d. 12. Pioglitazone 15 mg p.o. daily. 13. Oxycodone 18 mg p.o. b.i.d. 14. Insulin aspart 8 units subcu a.c. 15. Eliquis 5 mg p.o. b.i.d. DISCONTINUE MEDICATIONS: None. HISTORY OF PRESENT ILLNESS: A 60-year-old male with past medical history of paroxysmal atrial fibrillation, heart failure with reduced ejection fraction, coronary artery disease status post coronary artery bypass grafting, type 2 insulin-dependent diabetes, presented with rapid heart rate that woke him from sleep. Upon arrival to the emergency department, EKG was consistent with atrial fibrillation with RVR versus atrial flutter. He was given one dose of digoxin 0.25 mg, which resolved tachycardia. He was converted to normal sinus rhythm and was consistently in normal sinus rhythm during entire duration on telemetry floor. Due to the paroxysmal nature, the patient was started on Eliquis. Other rate control medications were not adjusted. His hypomagnesemia was replaced and resolved. A1c was 9.2, which patient reports improved compared to prior. The patient to follow up with PCP for further diabetes management. All home medications were continued. The patient to follow up with fire coordinator within 1 week. DISPOSITION: Stable. DISCHARGE INSTRUCTIONS: 1. Location: Home. 2. Diet: Heart healthy and carb consistent. 3. Activity: As tolerated. 4. Followup: Follow up with primary care physician at [facility], Dr. Mercer within 1 week. Followup with fire coordinator, Dr. Griffith, in 1 week. Job ID: [id number]
--- NOTE | 2020-02-22 09:21 | EKG ---
Test Reason : Blood Pressure : / mmHG Vent. Rate : 149 BPM Atrial Rate : 149 BPM P-R Int : 112 ms QRS Dur : 090 ms QT Int : 354 ms P-R-T Axes : 000 045 -17 degrees QTc Int : 557 ms Atrial flutter with 2 to 1 block Low voltage QRS Inferior infarct , age undetermined Anterolateral infarct , age undetermined Abnormal ECG Confirmed by DILEEP VIZCAINO ([id number]), newspaper or periodical editor ALAN BARNEY ([id number]) on 02/22/2020 9:21:16 AM Referred By: Confirmed By:DILEEP VIZCAINO
== END 2020-02-19 13:55 | disposition home or self-care (01) | DRG 309 ==
LOC: ERS 06:02 → 2NO 07:21
PROVIDERS: ADMIT Emergency Medicine; ATTEND Emergency Medicine
DX: I48.0 Paroxysmal atrial fibrillation (principal); I50.22 Chronic systolic (congestive) heart failure; I25.2 Old myocardial infarction; E11.9 Type 2 diabetes mellitus without complications; E78.5 Hyperlipidemia, unspecified; E83.42 Hypomagnesemia; I48.92 Unspecified atrial flutter; I11.0 Hypertensive heart disease with heart failure; I25.709 Atherosclerosis of coronary artery bypass graft(s), unspecified, with unspecified angina pectoris; Z88.0 Allergy status to penicillin; Z95.810 Presence of automatic (implantable) cardiac defibrillator; Z87.891 Personal history of nicotine dependence; Z79.01 Long term (current) use of anticoagulants; Z79.4 Long term (current) use of insulin; Z95.1 Presence of aortocoronary bypass graft; Z79.899 Other long term (current) drug therapy
CPT/HCPCS: 36415; 36416; 71045; 80053; 80162; 83036; 83735; 83880; 84484; 85025; 93005; J1160; J1815; J3475; J3490

== ENCOUNTER 2021-03-25 06:32 | Inpatient (IN) | payer MEDICARE ==
[2021-03-25] MEDS ORDERED: Albuterol Sulfate 2.5 mg/3 ml Neb ONE (06:55)
[2021-03-25 07:06] LABS: #Lymphocytes 1.6 thou/uL (1.20-3.40); #Monocytes 0.9 thou/uL (0.11-0.59); %Basophils 0.2 % (0.0-1.0); %Eosinophils 0.3 % (0.0-10.0); %Lymphocytes 16.6 % (21.0-51.0); %Monocytes 9.7 % (0.0-10.0); %Neutrophils 73.2 % (42.0-75.0); Hemoglobin 11.2 g/dL (14.0-18.0); Mean Corpuscular HGB CONC 32.8 g/dL (32.0-36.0); Mean Corpuscular Hemoglobin 27.7 pg (27.0-31.0); Mean Corpuscular Volume 84.4 fL (78.0-98.0); Mean Platelet Volume 7.5 fL (7.4-10.4); Platelet Count 304 thou/uL (130-400); RBC Distribution Width 13.1 % (11.5-14.5); Red Blood Cell (RBC) Count 4.05 mill/uL (4.70-6.10); White Blood Cell (WBC) Count 9.5 thou/uL (4.8-10.8)
[2021-03-25 07:26] LABS: ALT (SGPT) 23 U/L (8-55); AST (SGOT) 23 U/L (5-34); Albumin 3.5 g/dL (3.4-4.8); Alkaline Phosphatase 111 U/L (40-110); Anion Gap 16 mmol/L (10-20); BUN (Urea Nitrogen) 10 mg/dL (8.4-25.7); Bilirubin, Total 0.3 mg/dL (0.2-1.2); Calc. Creatinine Clearance 0 mL/min (70-130); Calcium 8.6 mg/dL (7.8-10.44); Carbon Dioxide 24 mmol/L (23-31); Chloride 100 mmol/L (98-107); Globulin 3.3 g/dL (2.4-3.5); Glucose 140 mg/dL (80-115); Protein, Total 6.8 g/dL (5.8-8.1); Sodium 136 mmol/L (136-145)
[2021-03-25] MEDS ORDERED: Furosemide 40 MG/4 ML VIAL ONE (08:26)
[2021-03-25 08:48] LABS: Bacteria/HPF None Seen HPF (None Seen); Bilirubin Negative (Negative); Blood, Urine Trace (Negative); Clarity Clear (Clear); Glucose, Urine (Dipstick) Normal (Negative); Ketone, Urine Negative (Negative); Leukocyte Negative Leu/uL (Negative); Nitrite Negative (Negative); Protein, Urine (Dipstick) 70 mg/dL (Neg-Trace); RBC/HPF 0-3 HPF (0-3); Specific Gravity, Urine 1.023 (1.002-1.036); Squamous Epithelial 0-3 HPF (0-3); Urobilinogen Normal mg/dL (Less than 2); WBC/HPF 0-3 HPF (0-3)
[2021-03-25 10:16] LABS: SARS-CoV-2 NAA Rapid Test Not Detected (NotDetected)
[2021-03-25 10:40] LABS: Troponin I Less than 0.010 ng/mL (< 0.028)
[2021-03-25] MEDS ORDERED: Acetaminophen 325 MG TAB PO PRN (11:25)
[2021-03-25] MEDS ORDERED: Dextrose 5% in Water 1,000 ML IV PRN (12:04)
[2021-03-25] MEDS ORDERED: HumaLOG 300 UNITS/3 ML VIAL SC PRN ×2 (12:04)
[2021-03-25] MEDS ORDERED: Dextrose 50% Abboject 50 ML SYRINGE SLOW IVP PRN (12:04)
[2021-03-25 13:35] LABS: Troponin I Less than 0.010 ng/mL (< 0.028)
[2021-03-25] MEDS: metFORMIN 500 MG TAB PO SCH (17:24)
[2021-03-25] MEDS: HumaLOG 300 UNITS/3 ML VIAL SC SCH (17:24)
[2021-03-25] MEDS: Furosemide 40 MG/4 ML VIAL SLOW IVP SCH (17:25)
[2021-03-25] MEDS: Benzonatate 100 MG CAP PO PRN (18:13)
[2021-03-25] MEDS: Lantus 1000 UNITS/10 ML VIAL SC SCH (20:24)
[2021-03-25] MEDS: Carvedilol 25 MG TAB PO SCH (20:25)
[2021-03-25] MEDS: Atorvastatin Calcium 40 MG TAB PO SCH (20:25)
[2021-03-25] MEDS: Icosapent Ethyl 1 GM CAPSULE PO SCH (20:25)
[2021-03-25] MEDS: Sotalol HCl 80 MG TAB PO SCH (20:25)
[2021-03-25] MEDS: Ivabradine 5 MG TAB PO SCH (20:26)
[2021-03-25] MEDS: Sacubitril 49 MG/Valsartan 51 MG TABLET PO SCH (20:26)
[2021-03-25] MEDS ORDERED: OXYCODONE MYRISTATE 18 MG PO SCH (21:00)
[2021-03-26 05:16] LABS: #Eosinphils 0.1 thou/uL (0.0-0.7); #Lymphocytes 1.7 thou/uL (1.20-3.40); #Monocytes 0.9 thou/uL (0.11-0.59); #Neutrophils 4.9 thou/uL (1.40-6.50); %Basophils 0.4 % (0.0-1.0); %Eosinophils 0.7 % (0.0-10.0); %Lymphocytes 22.3 % (21.0-51.0); %Monocytes 12.4 % (0.0-10.0); %Neutrophils 64.3 % (42.0-75.0); Hemoglobin 11.3 g/dL (14.0-18.0); Mean Corpuscular HGB CONC 31.8 g/dL (32.0-36.0); Mean Corpuscular Hemoglobin 27.3 pg (27.0-31.0); Mean Platelet Volume 7.3 fL (7.4-10.4); Platelet Count 292 thou/uL (130-400); Red Blood Cell (RBC) Count 4.12 mill/uL (4.70-6.10); White Blood Cell (WBC) Count 7.6 thou/uL (4.8-10.8)
[2021-03-26 05:43] LABS: Anion Gap 13 mmol/L (10-20); BUN (Urea Nitrogen) 11 mg/dL (8.4-25.7); Calc. Creatinine Clearance 142 mL/min (70-130); Calcium 8.5 mg/dL (7.8-10.44); Carbon Dioxide 31 mmol/L (23-31); Chloride 96 mmol/L (98-107); Glucose 107 mg/dL (80-115); Potassium 3.6 mmol/L (3.5-5.1); Sodium 136 mmol/L (136-145)
[2021-03-26] MEDS ORDERED: LIRAGLUTIDE 0.6 MG/0.1 ML SC SCH (09:00)
[2021-03-26] MEDS: Sacubitril 49 MG/Valsartan 51 MG TABLET PO SCH ×2 (09:04→20:01)
[2021-03-26] MEDS: Enoxaparin Sodium 40 MG/0.4 ML SYRINGE SC SCH (09:04)
[2021-03-26] MEDS: Digoxin 0.125 MG TAB PO SCH (09:05)
[2021-03-26] MEDS: Sotalol HCl 80 MG TAB PO SCH ×2 (09:06→20:00)
[2021-03-26] MEDS: metFORMIN 500 MG TAB PO SCH ×2 (09:06→17:35)
[2021-03-26] MEDS: Clopidogrel Bisulfate 75 MG TAB PO SCH (09:07)
[2021-03-26] MEDS: Carvedilol 25 MG TAB PO SCH ×2 (09:07→20:01)
[2021-03-26] MEDS: Ivabradine 5 MG TAB PO SCH ×2 (09:08→20:01)
[2021-03-26] MEDS: Icosapent Ethyl 1 GM CAPSULE PO SCH ×2 (09:08→20:01)
[2021-03-26] MEDS: HumaLOG 300 UNITS/3 ML VIAL SC SCH ×3 (09:11→17:38)
[2021-03-26] MEDS ORDERED: Digoxin 0.5 MG/2 ML AMP SLOW IVP SCH (11:15)
[2021-03-26] MEDS: Furosemide 40 MG/4 ML VIAL SLOW IVP SCH (17:35)
[2021-03-26] MEDS: Lantus 1000 UNITS/10 ML VIAL SC SCH (20:02)
[2021-03-26] MEDS: Atorvastatin Calcium 40 MG TAB PO SCH (20:14)
[2021-03-26] MEDS: Benzonatate 100 MG CAP PO PRN (20:23)
[2021-03-27 03:26] VITALS: TEMP 98.2
[2021-03-27 05:28] LABS: #Eosinphils 0.2 thou/uL (0.0-0.7); #Lymphocytes 2.4 thou/uL (1.20-3.40); #Monocytes 0.8 thou/uL (0.11-0.59); %Basophils 0.2 % (0.0-1.0); %Eosinophils 2.5 % (0.0-10.0); %Lymphocytes 28.2 % (21.0-51.0); %Neutrophils 60.1 % (42.0-75.0); Hemoglobin 11.6 g/dL (14.0-18.0); Mean Corpuscular HGB CONC 32.9 g/dL (32.0-36.0); Mean Corpuscular Hemoglobin 27.8 pg (27.0-31.0); Mean Corpuscular Volume 84.6 fL (78.0-98.0); Mean Platelet Volume 7.3 fL (7.4-10.4); Platelet Count 297 thou/uL (130-400); RBC Distribution Width 12.9 % (11.5-14.5); Red Blood Cell (RBC) Count 4.15 mill/uL (4.70-6.10); White Blood Cell (WBC) Count 8.3 thou/uL (4.8-10.8)
[2021-03-27 05:49] LABS: Anion Gap 16 mmol/L (10-20); BUN (Urea Nitrogen) 11 mg/dL (8.4-25.7); Calc. Creatinine Clearance 157 mL/min (70-130); Calcium 8.2 mg/dL (7.8-10.44); Carbon Dioxide 29 mmol/L (23-31); Chloride 97 mmol/L (98-107); Glucose 136 mg/dL (80-115); Potassium 3.5 mmol/L (3.5-5.1); Sodium 138 mmol/L (136-145)
[2021-03-27] MEDS: HumaLOG 300 UNITS/3 ML VIAL SC SCH (08:33)
[2021-03-27] MEDS: Enoxaparin Sodium 40 MG/0.4 ML SYRINGE SC SCH (08:34)
[2021-03-27] MEDS: Digoxin 0.125 MG TAB PO SCH (08:35)
[2021-03-27] MEDS: Clopidogrel Bisulfate 75 MG TAB PO SCH (08:35)
[2021-03-27] MEDS: Ivabradine 5 MG TAB PO SCH (08:35)
[2021-03-27] MEDS: Sotalol HCl 80 MG TAB PO SCH (08:36)
[2021-03-27] MEDS: metFORMIN 500 MG TAB PO SCH (08:36)
[2021-03-27] MEDS: Carvedilol 25 MG TAB PO SCH (08:36)
[2021-03-27] MEDS: Icosapent Ethyl 1 GM CAPSULE PO SCH (08:36)
[2021-03-27] MEDS: Sacubitril 49 MG/Valsartan 51 MG TABLET PO SCH (08:37)
[2021-03-27 08:43] VITALS: BP 140/63
[2021-03-27] MEDS ORDERED: Furosemide 20 MG/2 ML VIAL SLOW IVP SCH (09:00)
[2021-03-27] MEDS ORDERED: Potassium Chloride 20 MEQ TAB PO SCH (09:00)
[2021-03-27] MEDS ORDERED: Apixaban 5 MG TAB PO SCH (09:45)
== END 2021-03-27 10:39 | disposition home or self-care (01) | DRG 292 ==
LOC: ERS 06:32 → 2SW 08:46 → OBSVTOIN 03-26 15:15
PROVIDERS: ADMIT Student in an Organized Health Care Education/Training Program; ATTEND Student in an Organized Health Care Education/Training Program
DX: I11.0 Hypertensive heart disease with heart failure (principal); I48.20 Chronic atrial fibrillation, unspecified; I25.10 Atherosclerotic heart disease of native coronary artery without angina pectoris; E78.5 Hyperlipidemia, unspecified; E11.9 Type 2 diabetes mellitus without complications; J20.9 Acute bronchitis, unspecified; I50.23 Acute on chronic systolic (congestive) heart failure; Z20.822 Contact with and (suspected) exposure to COVID-19; Z95.1 Presence of aortocoronary bypass graft; Z88.0 Allergy status to penicillin; Z79.02 Long term (current) use of antithrombotics/antiplatelets; Z79.4 Long term (current) use of insulin; Z90.49 Acquired absence of other specified parts of digestive tract; Z98.890 Other specified postprocedural states; Z87.891 Personal history of nicotine dependence; Z82.49 Family history of ischemic heart disease and other diseases of the circulatory system
CPT/HCPCS: 0240U; 36415; 36416; 71045; 80048; 80053; 81003; 81015; 83880; 84484; 85025; 93005; 93306; 94640; 96372; 96374; 96376; G0378; J1650; J1815; J1940; J7611; J7620

== ENCOUNTER 2021-04-02 09:32 | Outpatient (CLI) | payer MEDICARE | END 2021-04-02 09:33 | disposition home or self-care (01) | LOC: BICRAD 09:32 | PROVIDERS: ATTEND Family Medicine | DX: I50.9 Heart failure, unspecified (principal); J90 Pleural effusion, not elsewhere classified; R91.8 Other nonspecific abnormal finding of lung field | CPT/HCPCS: 71046 ==

== ENCOUNTER 2021-08-09 10:06 | Outpatient (CLI) | payer MEDICARE | END 2021-08-09 10:07 | disposition home or self-care (01) | LOC: ULT 10:06 | PROVIDERS: ATTEND Physician Assistant Medical | DX: R10.11 Right upper quadrant pain (principal); D50.9 Iron deficiency anemia, unspecified; Z86.010 Personal history of colon polyps; J90 Pleural effusion, not elsewhere classified; K76.9 Liver disease, unspecified; Z90.49 Acquired absence of other specified parts of digestive tract | CPT/HCPCS: 76705 ==

== ENCOUNTER 2021-08-10 11:23 | Inpatient (IN) | payer MEDICARE ==
[~2021-08-10 11:23] MED LIST: Iopamidol-370 76% 500 ML 1 ML ONE
[2021-08-10 12:27] LABS: #Lymphocytes 1.2 thou/uL (1.20-3.40); #Monocytes 0.8 thou/uL (0.11-0.59); #Neutrophils 12.2 thou/uL (1.40-6.50); %Eosinophils 0.2 % (0.0-10.0); %Lymphocytes 8.7 % (21.0-51.0); %Monocytes 5.6 % (0.0-10.0); %Neutrophils 85.5 % (42.0-75.0); Hemoglobin 9.7 g/dL (14.0-18.0); Mean Corpuscular HGB CONC 31.9 g/dL (32.0-36.0); Mean Corpuscular Hemoglobin 26.5 pg (27.0-31.0); Mean Corpuscular Volume 83.1 fL (78.0-98.0); Mean Platelet Volume 7.2 fL (7.4-10.4); Platelet Count 501 thou/uL (130-400); RBC Distribution Width 13.9 % (11.5-14.5); Red Blood Cell (RBC) Count 3.65 mill/uL (4.70-6.10); White Blood Cell (WBC) Count 14.3 thou/uL (4.8-10.8)
[2021-08-10 12:55] LABS: ALT (SGPT) 16 U/L (8-55); AST (SGOT) 31 U/L (5-34); Albumin 2.5 g/dL (3.4-4.8); Alkaline Phosphatase 81 U/L (40-110); Anion Gap 17 mmol/L (10-20); BUN (Urea Nitrogen) 13 mg/dL (8.4-25.7); Bilirubin, Total 0.4 mg/dL (0.2-1.2); Calc. Creatinine Clearance 0 mL/min (70-130); Calcium 8.2 mg/dL (7.8-10.44); Carbon Dioxide 28 mmol/L (23-31); Globulin 2.9 g/dL (2.4-3.5); Glucose 186 mg/dL (80-115); Lipase 27 U/L (8-78); Magnesium 1.6 mg/dL (1.6-2.6); Protein, Total 5.4 g/dL (5.8-8.1)
[2021-08-10 13:12] LABS: Chloride 96 mmol/L (98-107); Potassium 4.6 mmol/L (3.5-5.1); Sodium 136 mmol/L (136-145)
[2021-08-10] MEDS ORDERED: metroNIDAZOLE 500 MG/100 ML BAG ONE (15:32)
[2021-08-10] MEDS ORDERED: Cefepime 2 GM VIAL ONE ×2 (15:32→16:06)
[2021-08-10] MEDS ORDERED: Dextrose 5% in Water 1,000 ML IV PRN (15:59)
[2021-08-10] MEDS ORDERED: Dextrose 50% Abboject 50 ML SYRINGE SLOW IVP PRN (15:59)
[2021-08-10] MEDS ORDERED: HumaLOG 300 UNITS/3 ML VIAL SC PRN ×2 (16:02)
[2021-08-10] MEDS ORDERED: Vancomycin 1 GM/200 ML BAG ONE (16:26)
[2021-08-10 16:51] LABS: INR-International Normal Ratio 1.4; PTT 34.6 sec (22.9-36.1); Prothrombin Time 17.5 sec (12.0-14.7)
[2021-08-10 17:48] LABS: SARS-CoV-2 NAA Rapid Test Not Detected (NotDetected)
[2021-08-10] MEDS ORDERED: Benzonatate 100 MG CAP PO PRN (18:13)
[2021-08-10 18:24] LABS: Hemoglobin 10.2 g/dL (14.0-18.0)
[2021-08-10] MEDS: Lantus 1000 UNITS/10 ML VIAL SC SCH (20:49)
[2021-08-10] MEDS ORDERED: OXYCODONE MYRISTATE 18 MG PO SCH (21:00)
[2021-08-10] MEDS: Sacubitril 49 MG/Valsartan 51 MG TABLET PO SCH (21:08)
[2021-08-10] MEDS: Sotalol HCl 80 MG TAB PO SCH (21:09)
[2021-08-10] MEDS: Ivabradine 5 MG TAB PO SCH (21:10)
[2021-08-10] MEDS: Carvedilol 25 MG TAB PO SCH (21:11)
[2021-08-10] MEDS: metroNIDAZOLE 500 MG in Premix Bag 1 BAG IVPB SCH (21:12)
[2021-08-10] MEDS: metFORMIN 500 MG TAB PO SCH (21:56)
[2021-08-10] MEDS ORDERED: Morphine 4 MG/ML VIAL SLOW IVP PRN (23:02)
[2021-08-11] MEDS: Cefepime 2 GM in Sodium Chloride 0.9% 100 ML IVPB SCH ×2 (02:03→16:33)
[2021-08-11] MEDS: VANCOMYCIN 2 GRAM/400 ML BAG 2 GM in Premix Bag 1 BAG IVPB SCH ×2 (03:45→17:18)
[2021-08-11] MEDS: Carvedilol 25 MG TAB PO SCH ×2 (05:57→21:32)
[2021-08-11] MEDS: metroNIDAZOLE 500 MG in Premix Bag 1 BAG IVPB SCH ×3 (05:57→22:56)
[2021-08-11] MEDS ORDERED: Fentanyl 250 MCG/5 ML VIAL ONE (06:42)
[2021-08-11] MEDS ORDERED: EPINEPHrine 1 MG/ML AMP ONE (06:55)
[2021-08-11] MEDS ORDERED: Bupivacaine PF 0.5% 30 ML VIAL ONE (06:55)
[2021-08-11] MEDS ORDERED: Rocuronium Bromide 10 MG/ML (10ML VIAL) ONE (07:23)
[2021-08-11] MEDS ORDERED: PROPOFOL 200 MG/20 ML VIAL ONE (07:23)
[2021-08-11] MEDS ORDERED: Lidocaine 1% PF 5 ML VIAL ONE (07:23)
[2021-08-11] MEDS ORDERED: Ondansetron PF 4 MG/2 ML Vial ONE (07:23)
[2021-08-11] MEDS ORDERED: PHENYLEPHRINE-NS 100 MCG/ML 10 ML SYRINGE ONE (07:23)
[2021-08-11] MEDS ORDERED: ePHEDrine 50 MG/ML VIAL ONE (07:23)
[2021-08-11] MEDS ORDERED: Insulin Regular 300 UNITS/3 ML VIAL ONE (07:26)
[2021-08-11] MEDS ORDERED: HYDROmorphone 2 MG/ML VIAL ONE ×2 (07:34→10:53)
[2021-08-11] MEDS ORDERED: Ketamine 50 MG/ML (10ML VIAL) ONE (07:34)
[2021-08-11] MEDS ORDERED: SUGAMMADEX SODIUM 200 MG/2 ML VIAL ONE (10:02)
[2021-08-11] MEDS ORDERED: diphenhydrAMINE 25 MG CAP PO PRN (10:25)
[2021-08-11] MEDS ORDERED: Zolpidem Tartrate 5 MG TAB PO PRN (10:25)
[2021-08-11] MEDS ORDERED: Naloxone HCl 0.4 mg/ml Vial IV PRN (10:25)
[2021-08-11] MEDS ORDERED: Promethazine HCl 25 MG/ML VIAL IM PRN ×2 (10:25→10:32)
[2021-08-11] MEDS ORDERED: diphenhydrAMINE 50 MG/ML VIAL IM PRN (10:25)
[2021-08-11] MEDS ORDERED: Ondansetron PF 4 MG/2 ML Vial IVP PRN ×2 (10:25→17:17)
[2021-08-11] MEDS ORDERED: diphenhydrAMINE 50 MG/ML VIAL IVP PRN (10:25)
[2021-08-11] MEDS ORDERED: Communication Order-Pharmacy FS PRN (10:30)
[2021-08-11] MEDS ORDERED: Ondansetron HCl/PF 4 MG/2 ML Vial IVP PRN (10:32)
[2021-08-11] MEDS ORDERED: Promethazine HCl 25 MG/ML VIAL IVPB PRN ×2 (10:32→17:17)
[2021-08-11] MEDS ORDERED: HYDROmorphone 2 MG/ML VIAL SLOW IVP PRN (10:32)
[2021-08-11] MEDS ORDERED: Fentanyl 100 MCG/2 ML VIAL ONE (10:53)
[2021-08-11] MEDS ORDERED: Midodrine HCl 5 MG TAB PO SCH (15:00)
[2021-08-11 15:41] LABS: #Neutrophils 15.8 thou/uL (1.40-6.50); %Basophils 0.1 % (0.0-1.0); %Eosinophils 0.2 % (0.0-10.0); %Lymphocytes 5.3 % (21.0-51.0); %Monocytes 5.5 % (0.0-10.0); Hemoglobin 9.2 g/dL (14.0-18.0); Mean Corpuscular HGB CONC 32.6 g/dL (32.0-36.0); Mean Corpuscular Volume 82.8 fL (78.0-98.0); Platelet Count 455 thou/uL (130-400); Platelet Count 471 thou/uL (130-400); RBC Distribution Width 13.9 % (11.5-14.5); Red Blood Cell (RBC) Count 3.41 mill/uL (4.70-6.10); White Blood Cell (WBC) Count 17.8 thou/uL (4.8-10.8)
[2021-08-11 16:05] LABS: ALT (SGPT) 11 U/L (8-55); AST (SGOT) 13 U/L (5-34); Albumin 2.3 g/dL (3.4-4.8); Alkaline Phosphatase 77 U/L (40-110); Anion Gap 9 mmol/L (10-20); BUN (Urea Nitrogen) 9 mg/dL (8.4-25.7); Bilirubin, Total 0.3 mg/dL (0.2-1.2); Calc. Creatinine Clearance 166 mL/min (70-130); Calcium 7.6 mg/dL (7.8-10.44); Carbon Dioxide 29 mmol/L (23-31); Chloride 100 mmol/L (98-107); Globulin 2.9 g/dL (2.4-3.5); Glucose 245 mg/dL (80-115); Potassium 4.3 mmol/L (3.5-5.1); Protein, Total 5.2 g/dL (5.8-8.1); Sodium 134 mmol/L (136-145)
[2021-08-11] MEDS: Digoxin 0.125 MG TAB PO SCH (16:32)
[2021-08-11] MEDS: Ivabradine 5 MG TAB PO SCH ×2 (16:33→21:41)
[2021-08-11] MEDS: Sacubitril 49 MG/Valsartan 51 MG TABLET PO SCH ×2 (16:33→21:40)
[2021-08-11] MEDS: Sotalol HCl 80 MG TAB PO SCH ×2 (16:33→21:33)
[2021-08-11] MEDS: metFORMIN 500 MG TAB PO SCH ×2 (16:33→21:36)
[2021-08-11] MEDS ORDERED: Acetaminophen 325 MG TAB PO PRN (17:17)
[2021-08-11] MEDS ORDERED: FLU VACC QS2021-22(6MOS UP)/PF 60 MCG/0.5 ML SYRINGE IM ONE (17:45)
[2021-08-11] MEDS: Lactated Ringer's 1,000 ML IV SCH (18:50)
[2021-08-11] MEDS: Clindamycin/D5W 900 MG in Premix Bag 1 BAG IVPB SCH (21:33)
[2021-08-11] MEDS: Atorvastatin Calcium 40 MG TAB PO SCH (21:33)
[2021-08-11] MEDS: Enoxaparin Sodium 40 MG/0.4 ML SYRINGE SC SCH (21:34)
[2021-08-11] MEDS: Lantus 1000 UNITS/10 ML VIAL SC SCH (21:43)
[2021-08-12] MEDS: Clindamycin/D5W 900 MG in Premix Bag 1 BAG IVPB SCH ×3 (02:14→17:14)
[2021-08-12] MEDS: Cefepime 2 GM in Sodium Chloride 0.9% 100 ML IVPB SCH ×2 (03:23→15:58)
[2021-08-12] MEDS: VANCOMYCIN 2 GRAM/400 ML BAG 2 GM in Premix Bag 1 BAG IVPB SCH (04:07)
[2021-08-12] MEDS: Lactated Ringer's 1,000 ML IV SCH ×2 (05:37→09:39)
[2021-08-12] MEDS: metroNIDAZOLE 500 MG in Premix Bag 1 BAG IVPB SCH ×3 (05:37→22:20)
[2021-08-12 06:44] LABS: #Lymphocytes 1.1 thou/uL (1.20-3.40); #Neutrophils 12.5 thou/uL (1.40-6.50); %Basophils 0.1 % (0.0-1.0); %Eosinophils 0.1 % (0.0-10.0); %Lymphocytes 7.6 % (21.0-51.0); %Monocytes 6.9 % (0.0-10.0); %Neutrophils 85.3 % (42.0-75.0); Hemoglobin 8.9 g/dL (14.0-18.0); Mean Corpuscular HGB CONC 31.6 g/dL (32.0-36.0); Mean Corpuscular Hemoglobin 27.1 pg (27.0-31.0); Mean Corpuscular Volume 85.7 fL (78.0-98.0); Mean Platelet Volume 7.4 fL (7.4-10.4); Platelet Count 358 thou/uL (130-400); RBC Distribution Width 13.9 % (11.5-14.5); White Blood Cell (WBC) Count 14.6 thou/uL (4.8-10.8)
[2021-08-12] MEDS: Insulin Regular 300 UNITS/3 ML VIAL SC PRN ×3 (06:45→17:14)
[2021-08-12 06:50] LABS: Anion Gap 12 mmol/L (10-20); BUN (Urea Nitrogen) 7 mg/dL (8.4-25.7); Calc. Creatinine Clearance 173 mL/min (70-130); Calcium 7.3 mg/dL (7.8-10.44); Carbon Dioxide 29 mmol/L (23-31); Chloride 100 mmol/L (98-107); Glucose 210 mg/dL (80-115); Sodium 137 mmol/L (136-145)
[2021-08-12] MEDS ORDERED: Insulin Regular 300 UNITS/3 ML VIAL SC PRN (07:58)
[2021-08-12] MEDS: Carvedilol 25 MG TAB PO SCH ×2 (09:37→22:18)
[2021-08-12] MEDS: metFORMIN 500 MG TAB PO SCH ×2 (09:37→22:19)
[2021-08-12] MEDS: Sacubitril 49 MG/Valsartan 51 MG TABLET PO SCH ×2 (09:38→22:18)
[2021-08-12] MEDS: Ivabradine 5 MG TAB PO SCH ×2 (09:38→22:19)
[2021-08-12] MEDS: Sotalol HCl 80 MG TAB PO SCH ×2 (09:38→22:18)
[2021-08-12] MEDS: Digoxin 0.125 MG TAB PO SCH (09:41)
[2021-08-12] MEDS: fentaNYL Citrate/PF 2,000 MCG in Sodium Chloride 0.9% 60 ML IV PRN (15:58)
[2021-08-12] MEDS: Lantus 1000 UNITS/10 ML VIAL SC SCH (22:19)
[2021-08-12] MEDS: Atorvastatin Calcium 40 MG TAB PO SCH (22:19)
[2021-08-12] MEDS: Enoxaparin Sodium 40 MG/0.4 ML SYRINGE SC SCH (22:19)
[2021-08-13] MEDS: Clindamycin/D5W 900 MG in Premix Bag 1 BAG IVPB SCH (02:20)
[2021-08-13] MEDS: Cefepime 2 GM in Sodium Chloride 0.9% 100 ML IVPB SCH (03:18)
[2021-08-13] MEDS: metroNIDAZOLE 500 MG in Premix Bag 1 BAG IVPB SCH ×3 (06:21→20:20)
[2021-08-13] MEDS: Lactated Ringer's 1,000 ML IV SCH (06:33)
[2021-08-13] MEDS: Lantus 1000 UNITS/10 ML VIAL SC SCH ×2 (08:56→20:22)
[2021-08-13] MEDS: metFORMIN 500 MG TAB PO SCH ×2 (08:57→20:21)
[2021-08-13] MEDS: Sacubitril 49 MG/Valsartan 51 MG TABLET PO SCH ×2 (08:57→20:21)
[2021-08-13] MEDS: Ivabradine 5 MG TAB PO SCH ×2 (09:04→20:21)
[2021-08-13] MEDS: Sotalol HCl 80 MG TAB PO SCH ×2 (09:06→20:21)
[2021-08-13] MEDS: Carvedilol 25 MG TAB PO SCH ×2 (09:08→20:21)
[2021-08-13] MEDS: Digoxin 0.125 MG TAB PO SCH (09:09)
[2021-08-13] MEDS: Insulin Regular 300 UNITS/3 ML VIAL SC PRN (11:50)
[2021-08-13] MEDS: cefTRIAXone\\ROCEPHIN 1 GM in Sodium Chloride 0.9% 100 ML IVPB SCH (15:41)
[2021-08-13] MEDS: Atorvastatin Calcium 40 MG TAB PO SCH (20:21)
[2021-08-13] MEDS: Enoxaparin Sodium 40 MG/0.4 ML SYRINGE SC SCH (20:22)
[2021-08-13] MEDS: fentaNYL Citrate/PF 2,000 MCG in Sodium Chloride 0.9% 60 ML IV PRN (23:10)
[2021-08-14] MEDS: metroNIDAZOLE 500 MG in Premix Bag 1 BAG IVPB SCH ×3 (06:19→21:24)
[2021-08-14 06:30] LABS: #Eosinphils 0.2 thou/uL (0.0-0.7); #Lymphocytes 1.3 thou/uL (1.20-3.40); #Monocytes 1.2 thou/uL (0.11-0.59); #Neutrophils 12.5 thou/uL (1.40-6.50); %Basophils 0.1 % (0.0-1.0); %Lymphocytes 8.7 % (21.0-51.0); %Monocytes 8.1 % (0.0-10.0); %Neutrophils 82.2 % (42.0-75.0); Hemoglobin 9.1 g/dL (14.0-18.0); Mean Corpuscular HGB CONC 31.9 g/dL (32.0-36.0); Mean Corpuscular Hemoglobin 26.7 pg (27.0-31.0); Mean Corpuscular Volume 83.6 fL (78.0-98.0); Mean Platelet Volume 7.5 fL (7.4-10.4); Platelet Count 404 thou/uL (130-400); RBC Distribution Width 13.9 % (11.5-14.5); White Blood Cell (WBC) Count 15.2 thou/uL (4.8-10.8)
[2021-08-14 06:45] LABS: Anion Gap 12 mmol/L (10-20); BUN (Urea Nitrogen) 5 mg/dL (8.4-25.7); Calc. Creatinine Clearance 216 mL/min (70-130); Calcium 7.5 mg/dL (7.8-10.44); Carbon Dioxide 26 mmol/L (23-31); Chloride 103 mmol/L (98-107); Glucose 62 mg/dL (80-115); Potassium 3.3 mmol/L (3.5-5.1); Sodium 138 mmol/L (136-145)
[2021-08-14] MEDS: metFORMIN 500 MG TAB PO SCH ×2 (08:21→21:22)
[2021-08-14] MEDS: Sotalol HCl 80 MG TAB PO SCH ×2 (08:21→21:23)
[2021-08-14] MEDS: Carvedilol 25 MG TAB PO SCH ×2 (08:21→21:23)
[2021-08-14] MEDS: Sacubitril 49 MG/Valsartan 51 MG TABLET PO SCH ×2 (08:22→21:23)
[2021-08-14] MEDS: Ivabradine 5 MG TAB PO SCH ×2 (08:22→21:21)
[2021-08-14] MEDS: Digoxin 0.125 MG TAB PO SCH (08:22)
[2021-08-14] MEDS: Lantus 1000 UNITS/10 ML VIAL SC SCH (08:31)
[2021-08-14] MEDS: Lactated Ringer's 1,000 ML IV SCH (08:31)
[2021-08-14] MEDS ORDERED: Potassium Chloride 20 MEQ TAB PO SCH (09:00)
[2021-08-14 11:34] LABS: Bacteria/HPF None Seen HPF (None Seen); Bilirubin Negative (Negative); Blood, Urine Negative (Negative); Clarity Clear (Clear); Glucose, Urine (Dipstick) Normal (Negative); Ketone, Urine 10 mg/dL (Negative); Leukocyte Negative Leu/uL (Negative); Nitrite Negative (Negative); Protein, Urine (Dipstick) Negative (Neg-Trace); RBC/HPF 0-3 HPF (0-3); Specific Gravity, Urine 1.012 (1.002-1.036); Squamous Epithelial None Seen HPF (0-3); Urobilinogen Normal mg/dL (Less than 2); WBC/HPF 0-3 HPF (0-3); pH, Urine 5.5 (5.0-9.0)
[2021-08-14 11:42] LABS: Phencyclidine (PCP) Not Detected (NotDetected); THC/Cannabinoid Screen Not Detected (NotDetected)
[2021-08-14 11:43] LABS: Amphetamine Not Detected (NotDetected); Barbiturates Screen Not Detected (NotDetected); Benzodiazepine Screen Not Detected (NotDetected); Cocaine Metabolite Screen Not Detected (NotDetected); Methadone Not Detected (NotDetected); Methamphetamine Not Detected (NotDetected); Opiate Screen Not Detected (NotDetected); Oxycodone Screen Not Detected (NotDetected); Tricyclic Screen Not Detected (NotDetected)
[2021-08-14 12:04] LABS: HIV (1/2) Antibody/Antigen Non-Reactive (NonReactive); HIV 1/2 INDEX 0.11 S/CO (<1.00)
[2021-08-14] MEDS ORDERED: Iopamidol-370 76% 500 ML 1 ML ONE (12:19)
[2021-08-14] MEDS: cefTRIAXone\\ROCEPHIN 1 GM in Sodium Chloride 0.9% 100 ML IVPB SCH (14:51)
[2021-08-14] MEDS ORDERED: Lantus 1000 UNITS/10 ML VIAL SC SCH (21:00)
[2021-08-14] MEDS: Atorvastatin Calcium 40 MG TAB PO SCH (21:23)
[2021-08-14] MEDS: Enoxaparin Sodium 40 MG/0.4 ML SYRINGE SC SCH (21:24)
[2021-08-15] MEDS: metroNIDAZOLE 500 MG in Premix Bag 1 BAG IVPB SCH ×3 (06:34→21:01)
[2021-08-15] MEDS: Lactated Ringer's 1,000 ML IV SCH (06:34)
[2021-08-15] MEDS: fentaNYL Citrate/PF 2,000 MCG in Sodium Chloride 0.9% 60 ML IV PRN (06:35)
[2021-08-15 07:45] LABS: #Eosinphils 0.4 thou/uL (0.0-0.7); #Lymphocytes 1.9 thou/uL (1.20-3.40); #Monocytes 1.1 thou/uL (0.11-0.59); #Neutrophils 9.9 thou/uL (1.40-6.50); %Basophils 0.2 % (0.0-1.0); %Eosinophils 2.7 % (0.0-10.0); %Monocytes 8.3 % (0.0-10.0); %Neutrophils 74.7 % (42.0-75.0); Hemoglobin 8.5 g/dL (14.0-18.0); Mean Corpuscular HGB CONC 32.2 g/dL (32.0-36.0); Mean Corpuscular Hemoglobin 27.2 pg (27.0-31.0); Mean Corpuscular Volume 84.4 fL (78.0-98.0); Mean Platelet Volume 7.7 fL (7.4-10.4); Platelet Count 409 thou/uL (130-400); RBC Distribution Width 13.9 % (11.5-14.5); Red Blood Cell (RBC) Count 3.12 mill/uL (4.70-6.10); White Blood Cell (WBC) Count 13.2 thou/uL (4.8-10.8)
[2021-08-15 08:03] LABS: Phosphorus 2.9 mg/dL (2.3-4.7)
[2021-08-15 08:09] LABS: Anion Gap 11 mmol/L (10-20); BUN (Urea Nitrogen) 4 mg/dL (8.4-25.7); Calc. Creatinine Clearance 194 mL/min (70-130); Calcium 7.4 mg/dL (7.8-10.44); Carbon Dioxide 28 mmol/L (23-31); Chloride 104 mmol/L (98-107); Glucose 65 mg/dL (80-115); Magnesium 1.4 mg/dL (1.6-2.6); Potassium 3.7 mmol/L (3.5-5.1); Sodium 139 mmol/L (136-145)
[2021-08-15] MEDS: Ivabradine 5 MG TAB PO SCH ×2 (08:57→21:00)
[2021-08-15] MEDS: Digoxin 0.125 MG TAB PO SCH (08:57)
[2021-08-15] MEDS: Sotalol HCl 80 MG TAB PO SCH ×2 (08:58→21:00)
[2021-08-15] MEDS: metFORMIN 500 MG TAB PO SCH ×2 (08:58→21:00)
[2021-08-15] MEDS: Carvedilol 25 MG TAB PO SCH ×2 (08:58→21:00)
[2021-08-15] MEDS: Sacubitril 49 MG/Valsartan 51 MG TABLET PO SCH ×2 (08:58→21:00)
[2021-08-15] MEDS: Lantus 1000 UNITS/10 ML VIAL SC SCH (08:59)
[2021-08-15] MEDS ORDERED: Magnesium 2 GM/50 ML 2 GM in Premix Bag 1 BAG IVPB SCH (09:00)
[2021-08-15] MEDS ORDERED: Magnesium Sulfate 2 GM in Sodium Chloride 0.9% 100 ML IVPB SCH (09:00)
[2021-08-15 09:13] LABS: QuantiFERON-TB Gold Plus Negative (Negative)
[2021-08-15] MEDS: cefTRIAXone\\ROCEPHIN 1 GM in Sodium Chloride 0.9% 100 ML IVPB SCH (14:26)
[2021-08-15] MEDS: Atorvastatin Calcium 40 MG TAB PO SCH (21:00)
[2021-08-15] MEDS: Enoxaparin Sodium 40 MG/0.4 ML SYRINGE SC SCH (21:01)
[2021-08-16] MEDS: Carvedilol 25 MG TAB PO SCH ×3 (02:05→22:08)
[2021-08-16] MEDS: Sotalol HCl 80 MG TAB PO SCH ×3 (02:05→22:08)
[2021-08-16] MEDS: Sacubitril 49 MG/Valsartan 51 MG TABLET PO SCH ×3 (02:05→22:08)
[2021-08-16 05:16] LABS: Anion Gap 9 mmol/L (10-20); BUN (Urea Nitrogen) 4 mg/dL (8.4-25.7); Calc. Creatinine Clearance 188 mL/min (70-130); Calcium 7.4 mg/dL (7.8-10.44); Carbon Dioxide 30 mmol/L (23-31); Chloride 103 mmol/L (98-107); Glucose 129 mg/dL (80-115); Magnesium 1.5 mg/dL (1.6-2.6); Potassium 3.7 mmol/L (3.5-5.1); Sodium 138 mmol/L (136-145)
[2021-08-16] MEDS: metroNIDAZOLE 500 MG in Premix Bag 1 BAG IVPB SCH ×3 (06:08→22:09)
[2021-08-16] MEDS ORDERED: Magnesium 2 GM/50 ML 2 GM in Premix Bag 1 BAG IVPB SCH (08:30)
[2021-08-16] MEDS: Ivabradine 5 MG TAB PO SCH ×2 (09:26→22:08)
[2021-08-16] MEDS: Digoxin 0.125 MG TAB PO SCH (09:26)
[2021-08-16] MEDS: Lantus 1000 UNITS/10 ML VIAL SC SCH (09:27)
[2021-08-16] MEDS: metFORMIN 500 MG TAB PO SCH ×2 (09:59→22:08)
[2021-08-16] MEDS: Lactated Ringer's 1,000 ML IV SCH (09:59)
[2021-08-16] MEDS: cefTRIAXone\\ROCEPHIN 1 GM in Sodium Chloride 0.9% 100 ML IVPB SCH (15:27)
[2021-08-16] MEDS ORDERED: Sodium Bicarbonate 2.5 MEQ/5 ML VIAL ONE (15:31)
[2021-08-16] MEDS ORDERED: Midazolam HCl 2 mg/2 ml Vial ONE (15:32)
[2021-08-16] MEDS ORDERED: Fentanyl 100 MCG/2 ML VIAL ONE (15:32)
[2021-08-16] MEDS: Atorvastatin Calcium 40 MG TAB PO SCH (22:08)
[2021-08-16] MEDS: Enoxaparin Sodium 40 MG/0.4 ML SYRINGE SC SCH (22:09)
[2021-08-17] MEDS: fentaNYL Citrate/PF 2,000 MCG in Sodium Chloride 0.9% 60 ML IV PRN (04:10)
[2021-08-17 06:10] LABS: #Eosinphils 0.3 thou/uL (0.0-0.7); #Monocytes 0.8 thou/uL (0.11-0.59); #Neutrophils 9.1 thou/uL (1.40-6.50); %Basophils 0.1 % (0.0-1.0); %Eosinophils 2.9 % (0.0-10.0); %Lymphocytes 16.3 % (21.0-51.0); %Monocytes 6.3 % (0.0-10.0); %Neutrophils 74.5 % (42.0-75.0); Hemoglobin 8.9 g/dL (14.0-18.0); Mean Corpuscular Hemoglobin 26.7 pg (27.0-31.0); Mean Corpuscular Volume 83.5 fL (78.0-98.0); Platelet Count 415 thou/uL (130-400); RBC Distribution Width 14.2 % (11.5-14.5); Red Blood Cell (RBC) Count 3.34 mill/uL (4.70-6.10); White Blood Cell (WBC) Count 12.2 thou/uL (4.8-10.8)
[2021-08-17] MEDS: metroNIDAZOLE 500 MG in Premix Bag 1 BAG IVPB SCH ×3 (06:22→21:50)
[2021-08-17] MEDS: Carvedilol 25 MG TAB PO SCH ×2 (06:22→21:48)
[2021-08-17 06:42] LABS: Anion Gap 14 mmol/L (10-20); BUN (Urea Nitrogen) 4 mg/dL (8.4-25.7); Calc. Creatinine Clearance 194 mL/min (70-130); Calcium 7.5 mg/dL (7.8-10.44); Carbon Dioxide 24 mmol/L (23-31); Chloride 103 mmol/L (98-107); Glucose 152 mg/dL (80-115); Magnesium 1.5 mg/dL (1.6-2.6); Potassium 3.8 mmol/L (3.5-5.1); Sodium 137 mmol/L (136-145)
[2021-08-17] MEDS: Lactated Ringer's 1,000 ML IV SCH (07:33)
[2021-08-17] MEDS: Lantus 1000 UNITS/10 ML VIAL SC SCH (08:49)
[2021-08-17] MEDS: Sacubitril 49 MG/Valsartan 51 MG TABLET PO SCH ×2 (08:49→21:59)
[2021-08-17] MEDS: Digoxin 0.125 MG TAB PO SCH (08:49)
[2021-08-17] MEDS: Sotalol HCl 80 MG TAB PO SCH ×2 (08:49→21:47)
[2021-08-17] MEDS: Ivabradine 5 MG TAB PO SCH ×2 (08:50→21:59)
[2021-08-17] MEDS: metFORMIN 500 MG TAB PO SCH ×2 (08:54→21:46)
[2021-08-17] MEDS ORDERED: Magnesium Sulfate 2 GM in Sodium Chloride 0.9% 100 ML IVPB SCH ×2 (09:15→15:00)
[2021-08-17] MEDS ORDERED: Calcium Carbonate 600 MG + Vit D TAB PO SCH ×2 (09:30→09:45)
[2021-08-17] MEDS: Magnesium 2 GM/50 ML 2 GM in Premix Bag 1 BAG IVPB SCH ×2 (10:53→15:16)
[2021-08-17] MEDS: cefTRIAXone\\ROCEPHIN 1 GM in Sodium Chloride 0.9% 100 ML IVPB SCH (15:18)
[2021-08-17] MEDS: Insulin Regular 300 UNITS/3 ML VIAL SC PRN (18:09)
[2021-08-17] MEDS: Enoxaparin Sodium 40 MG/0.4 ML SYRINGE SC SCH (21:44)
[2021-08-17] MEDS: Atorvastatin Calcium 40 MG TAB PO SCH (21:44)
[2021-08-18] MEDS: metroNIDAZOLE 500 MG in Premix Bag 1 BAG IVPB SCH ×3 (06:20→20:55)
[2021-08-18] MEDS: Lactated Ringer's 1,000 ML IV SCH ×2 (06:41→15:11)
[2021-08-18 06:50] LABS: #Eosinphils 0.4 thou/uL (0.0-0.7); #Lymphocytes 1.9 thou/uL (1.20-3.40); #Monocytes 0.7 thou/uL (0.11-0.59); #Neutrophils 8.2 thou/uL (1.40-6.50); %Basophils 0.1 % (0.0-1.0); %Eosinophils 3.2 % (0.0-10.0); %Lymphocytes 16.9 % (21.0-51.0); %Monocytes 6.1 % (0.0-10.0); %Neutrophils 73.7 % (42.0-75.0); Hemoglobin 8.3 g/dL (14.0-18.0); Mean Corpuscular HGB CONC 31.9 g/dL (32.0-36.0); Mean Corpuscular Hemoglobin 26.4 pg (27.0-31.0); Mean Corpuscular Volume 82.8 fL (78.0-98.0); Mean Platelet Volume 7.2 fL (7.4-10.4); Platelet Count 434 thou/uL (130-400); RBC Distribution Width 14.5 % (11.5-14.5); Red Blood Cell (RBC) Count 3.15 mill/uL (4.70-6.10); White Blood Cell (WBC) Count 11.2 thou/uL (4.8-10.8)
[2021-08-18 06:59] LABS: Phosphorus 2.9 mg/dL (2.3-4.7)
[2021-08-18 07:00] LABS: Anion Gap 11 mmol/L (10-20); BUN (Urea Nitrogen) Less than 4 mg/dL (8.4-25.7); Calc. Creatinine Clearance 212 mL/min (70-130); Calcium 7.4 mg/dL (7.8-10.44); Carbon Dioxide 30 mmol/L (23-31); Chloride 103 mmol/L (98-107); Glucose 104 mg/dL (80-115); Magnesium 1.7 mg/dL (1.6-2.6); Potassium 3.8 mmol/L (3.5-5.1); Sodium 140 mmol/L (136-145)
[2021-08-18] MEDS: Sotalol HCl 80 MG TAB PO SCH ×2 (09:09→20:52)
[2021-08-18] MEDS: Carvedilol 25 MG TAB PO SCH ×2 (09:10→20:52)
[2021-08-18] MEDS: Lantus 1000 UNITS/10 ML VIAL SC SCH (09:10)
[2021-08-18] MEDS: Digoxin 0.125 MG TAB PO SCH (09:10)
[2021-08-18] MEDS: metFORMIN 500 MG TAB PO SCH ×2 (09:10→20:54)
[2021-08-18] MEDS: ACTIVASE FS SCH ×2 (09:10→21:07)
[2021-08-18] MEDS: SODIUM CHLORIDE 0.9% FS SCH ×2 (09:10→21:07)
[2021-08-18] MEDS: Calcium Carbonate 600 MG + Vit D TAB PO SCH (09:10)
[2021-08-18] MEDS: Ivabradine 5 MG TAB PO SCH ×2 (09:11→20:54)
[2021-08-18] MEDS: Sacubitril 49 MG/Valsartan 51 MG TABLET PO SCH ×2 (09:11→20:54)
[2021-08-18] MEDS ORDERED: Magnesium 2 GM/50 ML 2 GM in Premix Bag 1 BAG IVPB SCH ×2 (09:45→15:00)
[2021-08-18] MEDS: DORNASE ALFA 2.5 MG/2.5 ML I-PLEURAL SCH ×2 (11:26→23:29)
[2021-08-18 11:33] LABS: SARS-CoV-2 PCR by NAA Not Detected (NotDetected)
[2021-08-18] MEDS: cefTRIAXone\\ROCEPHIN 1 GM in Sodium Chloride 0.9% 100 ML IVPB SCH (15:12)
[2021-08-18] MEDS: fentaNYL Citrate/PF 2,000 MCG in Sodium Chloride 0.9% 60 ML IV PRN (17:11)
[2021-08-18] MEDS: Enoxaparin Sodium 40 MG/0.4 ML SYRINGE SC SCH (20:52)
[2021-08-18] MEDS: Atorvastatin Calcium 40 MG TAB PO SCH (20:52)
[2021-08-19] MEDS: metroNIDAZOLE 500 MG in Premix Bag 1 BAG IVPB SCH ×3 (05:09→21:49)
[2021-08-19 05:36] LABS: #Eosinphils 0.4 thou/uL (0.0-0.7); #Lymphocytes 2.3 thou/uL (1.20-3.40); #Monocytes 0.7 thou/uL (0.11-0.59); #Neutrophils 8.5 thou/uL (1.40-6.50); %Basophils 0.1 % (0.0-1.0); %Eosinophils 3.7 % (0.0-10.0); %Lymphocytes 19.1 % (21.0-51.0); %Neutrophils 71.2 % (42.0-75.0); Hemoglobin 8.5 g/dL (14.0-18.0); Mean Corpuscular HGB CONC 32.6 g/dL (32.0-36.0); Mean Corpuscular Hemoglobin 27.3 pg (27.0-31.0); Mean Corpuscular Volume 83.7 fL (78.0-98.0); Mean Platelet Volume 6.9 fL (7.4-10.4); Platelet Count 420 thou/uL (130-400); RBC Distribution Width 14.8 % (11.5-14.5); Red Blood Cell (RBC) Count 3.12 mill/uL (4.70-6.10)
[2021-08-19] MEDS: Lactated Ringer's 1,000 ML IV SCH (05:44)
[2021-08-19 05:53] LABS: Anion Gap 11 mmol/L (10-20); BUN (Urea Nitrogen) Less than 4 mg/dL (8.4-25.7); Calc. Creatinine Clearance 220 mL/min (70-130); Calcium 7.6 mg/dL (7.8-10.44); Carbon Dioxide 31 mmol/L (23-31); Chloride 104 mmol/L (98-107); Glucose 75 mg/dL (80-115); Magnesium 1.7 mg/dL (1.6-2.6); Potassium 3.7 mmol/L (3.5-5.1); Sodium 142 mmol/L (136-145)
[2021-08-19] MEDS: Lantus 1000 UNITS/10 ML VIAL SC SCH (08:49)
[2021-08-19] MEDS: Sacubitril 49 MG/Valsartan 51 MG TABLET PO SCH ×2 (08:49→21:39)
[2021-08-19] MEDS: Digoxin 0.125 MG TAB PO SCH (08:50)
[2021-08-19] MEDS: Sotalol HCl 80 MG TAB PO SCH ×2 (08:50→21:38)
[2021-08-19] MEDS: Carvedilol 25 MG TAB PO SCH ×2 (08:50→21:38)
[2021-08-19] MEDS: Calcium Carbonate 600 MG + Vit D TAB PO SCH (08:50)
[2021-08-19] MEDS: metFORMIN 500 MG TAB PO SCH ×2 (08:50→21:38)
[2021-08-19] MEDS: ACTIVASE FS SCH ×2 (08:51→21:38)
[2021-08-19] MEDS: SODIUM CHLORIDE 0.9% FS SCH ×2 (08:51→21:38)
[2021-08-19] MEDS ORDERED: Lantus 1000 UNITS/10 ML VIAL SC SCH (09:15)
[2021-08-19] MEDS ORDERED: Magnesium 2 GM/50 ML 2 GM in Premix Bag 1 BAG IVPB SCH ×3 (09:30→15:00)
[2021-08-19] MEDS: Ivabradine 5 MG TAB PO SCH ×2 (11:02→21:39)
[2021-08-19 11:43] VITALS: BMI 31.1
[2021-08-19] MEDS: cefTRIAXone\\ROCEPHIN 1 GM in Sodium Chloride 0.9% 100 ML IVPB SCH (16:01)
[2021-08-19] MEDS: Atorvastatin Calcium 40 MG TAB PO SCH (21:38)
[2021-08-19] MEDS: Enoxaparin Sodium 40 MG/0.4 ML SYRINGE SC SCH (21:39)
[2021-08-20] MEDS: metroNIDAZOLE 500 MG in Premix Bag 1 BAG IVPB SCH (05:12)
[2021-08-20 05:28] LABS: #Eosinphils 0.3 thou/uL (0.0-0.7); #Lymphocytes 2.4 thou/uL (1.20-3.40); #Monocytes 0.6 thou/uL (0.11-0.59); #Neutrophils 6.4 thou/uL (1.40-6.50); %Basophils 0.3 % (0.0-1.0); %Eosinophils 3.2 % (0.0-10.0); %Lymphocytes 24.4 % (21.0-51.0); %Monocytes 6.1 % (0.0-10.0); Hemoglobin 8.6 g/dL (14.0-18.0); Mean Corpuscular HGB CONC 32.6 g/dL (32.0-36.0); Mean Corpuscular Hemoglobin 27.6 pg (27.0-31.0); Mean Corpuscular Volume 84.5 fL (78.0-98.0); Mean Platelet Volume 6.7 fL (7.4-10.4); Platelet Count 403 thou/uL (130-400); RBC Distribution Width 15.8 % (11.5-14.5); Red Blood Cell (RBC) Count 3.12 mill/uL (4.70-6.10); White Blood Cell (WBC) Count 9.7 thou/uL (4.8-10.8)
[2021-08-20 05:53] LABS: Anion Gap 13 mmol/L (10-20); BUN (Urea Nitrogen) Less than 4 mg/dL (8.4-25.7); Calc. Creatinine Clearance 188 mL/min (70-130); Calcium 7.7 mg/dL (7.8-10.44); Carbon Dioxide 31 mmol/L (23-31); Chloride 102 mmol/L (98-107); Glucose 86 mg/dL (80-115); Magnesium 1.6 mg/dL (1.6-2.6); Potassium 3.9 mmol/L (3.5-5.1); Sodium 142 mmol/L (136-145)
[2021-08-20] MEDS ORDERED: Magnesium Sulfate 2 GM in Sodium Chloride 0.9% 100 ML IVPB SCH ×2 (08:15→15:00)
[2021-08-20] MEDS: Lantus 1000 UNITS/10 ML VIAL SC SCH (08:26)
[2021-08-20] MEDS: Lactated Ringer's 1,000 ML IV SCH (08:28)
[2021-08-20] MEDS: Calcium Carbonate 600 MG + Vit D TAB PO SCH (08:30)
[2021-08-20] MEDS: Ivabradine 5 MG TAB PO SCH ×2 (08:30→21:29)
[2021-08-20] MEDS: Digoxin 0.125 MG TAB PO SCH (08:30)
[2021-08-20] MEDS: metFORMIN 500 MG TAB PO SCH ×2 (08:31→21:29)
[2021-08-20] MEDS: Sacubitril 49 MG/Valsartan 51 MG TABLET PO SCH ×2 (08:32→21:29)
[2021-08-20] MEDS: Sotalol HCl 80 MG TAB PO SCH ×2 (08:32→21:29)
[2021-08-20] MEDS: Carvedilol 25 MG TAB PO SCH ×2 (08:33→21:29)
[2021-08-20] MEDS ORDERED: DORNASE ALFA 2.5 MG/2.5 ML I-PLEURAL SCH ×2 (09:00)
[2021-08-20] MEDS: Magnesium 2 GM/50 ML 2 GM in Premix Bag 1 BAG IVPB SCH ×2 (09:54→14:30)
[2021-08-20] MEDS: SODIUM CHLORIDE 0.9% FS SCH ×2 (09:55→21:29)
[2021-08-20] MEDS: ACTIVASE FS SCH ×2 (09:55→21:29)
[2021-08-20] MEDS: fentaNYL Citrate/PF 2,000 MCG in Sodium Chloride 0.9% 60 ML IV PRN (12:18)
[2021-08-20] MEDS: DORNASE ALFA 2.5 MG/2.5 ML I-PLEURAL SCH ×2 (14:23→23:44)
[2021-08-20] MEDS: cefTRIAXone\\ROCEPHIN 1 GM in Sodium Chloride 0.9% 100 ML IVPB SCH (14:29)
[2021-08-20] MEDS: Apixaban 5 MG TAB PO SCH (21:29)
[2021-08-20] MEDS: Atorvastatin Calcium 40 MG TAB PO SCH (21:29)
[2021-08-21 05:06] LABS: #Eosinphils 0.3 thou/uL (0.0-0.7); #Monocytes 0.7 thou/uL (0.11-0.59); #Neutrophils 6.6 thou/uL (1.40-6.50); %Basophils 0.5 % (0.0-1.0); %Eosinophils 3.4 % (0.0-10.0); %Lymphocytes 20.6 % (21.0-51.0); %Neutrophils 68.6 % (42.0-75.0); Hemoglobin 8.7 g/dL (14.0-18.0); Mean Corpuscular HGB CONC 30.6 g/dL (32.0-36.0); Mean Corpuscular Hemoglobin 25.8 pg (27.0-31.0); Mean Corpuscular Volume 84.5 fL (78.0-98.0); Mean Platelet Volume 6.8 fL (7.4-10.4); Platelet Count 410 thou/uL (130-400); RBC Distribution Width 15.7 % (11.5-14.5); Red Blood Cell (RBC) Count 3.35 mill/uL (4.70-6.10); White Blood Cell (WBC) Count 9.6 thou/uL (4.8-10.8)
[2021-08-21 05:45] LABS: Anion Gap 14 mmol/L (10-20); BUN (Urea Nitrogen) 4 mg/dL (8.4-25.7); Calc. Creatinine Clearance 191 mL/min (70-130); Calcium 7.6 mg/dL (7.8-10.44); Carbon Dioxide 27 mmol/L (23-31); Chloride 101 mmol/L (98-107); Glucose 131 mg/dL (80-115); Potassium 4.2 mmol/L (3.5-5.1); Sodium 138 mmol/L (136-145)
[2021-08-21] MEDS: Lactated Ringer's 1,000 ML IV SCH (08:40)
[2021-08-21] MEDS: Calcium Carbonate 600 MG + Vit D TAB PO SCH (08:41)
[2021-08-21] MEDS: Carvedilol 25 MG TAB PO SCH ×2 (08:42→19:56)
[2021-08-21] MEDS: Sacubitril 49 MG/Valsartan 51 MG TABLET PO SCH ×2 (08:42→20:06)
[2021-08-21] MEDS: Apixaban 5 MG TAB PO SCH (08:42)
[2021-08-21] MEDS: Clopidogrel Bisulfate 75 MG TAB PO SCH (08:42)
[2021-08-21] MEDS: Ivabradine 5 MG TAB PO SCH ×2 (08:42→20:04)
[2021-08-21] MEDS: Sotalol HCl 80 MG TAB PO SCH ×2 (08:43→19:56)
[2021-08-21] MEDS: metFORMIN 500 MG TAB PO SCH ×2 (08:43→19:55)
[2021-08-21] MEDS: Digoxin 0.125 MG TAB PO SCH (08:45)
[2021-08-21] MEDS: Lantus 1000 UNITS/10 ML VIAL SC SCH (08:46)
[2021-08-21] MEDS: ACTIVASE FS SCH (09:26)
[2021-08-21] MEDS: SODIUM CHLORIDE 0.9% FS SCH (09:26)
[2021-08-21] MEDS ORDERED: Fentanyl 100 MCG/2 ML VIAL SLOW IVP PRN (10:37)
[2021-08-21] MEDS: DORNASE ALFA 2.5 MG/2.5 ML I-PLEURAL SCH (11:06)
[2021-08-21] MEDS: Insulin Regular 300 UNITS/3 ML VIAL SC PRN ×2 (12:11→16:23)
[2021-08-21] MEDS: HYDROcodone/Acetaminophen 5/325 mg Tablet PO PRN ×3 (14:24→23:39)
[2021-08-21] MEDS: Enoxaparin Sodium 40 MG/0.4 ML SYRINGE SC SCH (19:55)
[2021-08-21] MEDS: Atorvastatin Calcium 40 MG TAB PO SCH (19:56)
[2021-08-22] MEDS: HYDROcodone/Acetaminophen 5/325 mg Tablet PO PRN ×4 (05:20→20:47)
[2021-08-22] MEDS: Calcium Carbonate 600 MG + Vit D TAB PO SCH (08:15)
[2021-08-22] MEDS: Carvedilol 25 MG TAB PO SCH ×2 (08:15→20:47)
[2021-08-22] MEDS: Ivabradine 5 MG TAB PO SCH ×2 (08:16→20:44)
[2021-08-22] MEDS: metFORMIN 500 MG TAB PO SCH ×2 (08:16→20:46)
[2021-08-22] MEDS: Sotalol HCl 80 MG TAB PO SCH ×2 (08:16→20:45)
[2021-08-22] MEDS: Sacubitril 49 MG/Valsartan 51 MG TABLET PO SCH ×2 (08:16→20:43)
[2021-08-22] MEDS: Enoxaparin Sodium 40 MG/0.4 ML SYRINGE SC SCH ×3 (08:18→20:49)
[2021-08-22] MEDS: Clopidogrel Bisulfate 75 MG TAB PO SCH (08:18)
[2021-08-22] MEDS: Lantus 1000 UNITS/10 ML VIAL SC SCH (08:21)
[2021-08-22] MEDS: Digoxin 0.125 MG TAB PO SCH (08:22)
[2021-08-22] MEDS: Insulin Regular 300 UNITS/3 ML VIAL SC PRN (16:42)
[2021-08-22] MEDS: Atorvastatin Calcium 40 MG TAB PO SCH (20:47)
[2021-08-23] MEDS: HYDROcodone/Acetaminophen 5/325 mg Tablet PO PRN ×5 (01:51→23:28)
[2021-08-23] MEDS: Digoxin 0.125 MG TAB PO SCH (09:11)
[2021-08-23] MEDS: Sacubitril 49 MG/Valsartan 51 MG TABLET PO SCH ×2 (09:11→20:45)
[2021-08-23] MEDS: Ivabradine 5 MG TAB PO SCH ×2 (09:12→20:43)
[2021-08-23] MEDS: metFORMIN 500 MG TAB PO SCH ×2 (09:12→20:46)
[2021-08-23] MEDS: Calcium Carbonate 600 MG + Vit D TAB PO SCH (09:12)
[2021-08-23] MEDS: Carvedilol 25 MG TAB PO SCH ×2 (09:13→20:46)
[2021-08-23] MEDS: Clopidogrel Bisulfate 75 MG TAB PO SCH (09:13)
[2021-08-23] MEDS: Lantus 1000 UNITS/10 ML VIAL SC SCH (09:14)
[2021-08-23] MEDS: Enoxaparin Sodium 40 MG/0.4 ML SYRINGE SC SCH ×2 (09:14→20:43)
[2021-08-23] MEDS: Sotalol HCl 80 MG TAB PO SCH ×2 (09:14→20:45)
[2021-08-23] MEDS: Insulin Regular 300 UNITS/3 ML VIAL SC PRN (12:48)
[2021-08-23] MEDS: Atorvastatin Calcium 40 MG TAB PO SCH (20:47)
[2021-08-24] MEDS: HYDROcodone/Acetaminophen 5/325 mg Tablet PO PRN ×3 (05:54→13:37)
[2021-08-24] MEDS: Digoxin 0.125 MG TAB PO SCH (09:36)
[2021-08-24] MEDS: Sotalol HCl 80 MG TAB PO SCH (09:36)
[2021-08-24] MEDS: Ivabradine 5 MG TAB PO SCH (09:37)
[2021-08-24] MEDS: Carvedilol 25 MG TAB PO SCH (09:37)
[2021-08-24] MEDS: metFORMIN 500 MG TAB PO SCH (09:37)
[2021-08-24] MEDS: Sacubitril 49 MG/Valsartan 51 MG TABLET PO SCH (09:37)
[2021-08-24] MEDS: Calcium Carbonate 600 MG + Vit D TAB PO SCH (09:37)
[2021-08-24] MEDS: Clopidogrel Bisulfate 75 MG TAB PO SCH (09:37)
[2021-08-24] MEDS: Lantus 1000 UNITS/10 ML VIAL SC SCH (09:37)
[2021-08-24] MEDS: Enoxaparin Sodium 40 MG/0.4 ML SYRINGE SC SCH (09:45)
[2021-08-24 16:41] VITALS: BP 122/65; TEMP 98
[2021-08-27 11:05] LABS: Actual Bicarbonate (HCO3a) 27.5 mEq/L (22-28); Analyzer IN Cardio OR; Base Excess (BEa) 3.6 mEq/L (-2.0 to +3.0); CO2 Tension 38.6 mmHg (35.0-45.0); Calcium, Ionized (arterial) 1.05 mmol/L (1.12-1.30); Carboxyhemoglobin (COHb) 0.9 gm% (0.0-3.0); Hemoglobin (Hb) 8.8 g/dL (14.0-18.0); O2 Tension (PaO2), arterial 337.5 mmHg (> 80.0); Potassium - ABG Lab 4.03 mmol/L (3.70-5.30); Puncture Site Arterial Line; pH, Arterial 7.47 (7.35-7.45)
== END 2021-08-24 17:25 | DRG 163 ==
LOC: ERS 11:23 → T4-B 15:27 → SURG A 08-11 10:24
PROVIDERS: ADMIT Family Medicine; ATTEND Family Medicine
PROC: 0BNF0ZZ Release Right Lower Lung Lobe, Open Approach (ICD-10-PCS; principal; 2021-08-11)
PROC: 0BND0ZZ Release Right Middle Lung Lobe, Open Approach (ICD-10-PCS; 2021-08-11)
PROC: 0W9900Z Drainage of Right Pleural Cavity with Drainage Device, Open Approach (ICD-10-PCS; 2021-08-11)
PROC: 0W9H30Z Drainage of Retroperitoneum with Drainage Device, Percutaneous Approach (ICD-10-PCS; 2021-08-16)
PROC: 3E0L3GC Introduction of Other Therapeutic Substance into Pleural Cavity, Percutaneous Approach (ICD-10-PCS; 2021-08-18)
DX: J86.9 Pyothorax without fistula (principal); K68.19 Other retroperitoneal abscess; I50.22 Chronic systolic (congestive) heart failure; K52.1 Toxic gastroenteritis and colitis; Z20.822 Contact with and (suspected) exposure to COVID-19; E11.9 Type 2 diabetes mellitus without complications; I25.10 Atherosclerotic heart disease of native coronary artery without angina pectoris; I11.0 Hypertensive heart disease with heart failure; I48.0 Paroxysmal atrial fibrillation; K21.9 Gastro-esophageal reflux disease without esophagitis; E78.5 Hyperlipidemia, unspecified; B96.20 Unspecified Escherichia coli [E. coli] as the cause of diseases classified elsewhere; D64.9 Anemia, unspecified; I25.5 Ischemic cardiomyopathy; E83.42 Hypomagnesemia; Z79.4 Long term (current) use of insulin; Z95.1 Presence of aortocoronary bypass graft; Z95.5 Presence of coronary angioplasty implant and graft; Z88.0 Allergy status to penicillin; Z79.899 Other long term (current) drug therapy; Z79.84 Long term (current) use of oral hypoglycemic drugs; Z79.01 Long term (current) use of anticoagulants; Z95.810 Presence of automatic (implantable) cardiac defibrillator; Z90.49 Acquired absence of other specified parts of digestive tract; Z87.01 Personal history of pneumonia (recurrent); Z80.1 Family history of malignant neoplasm of trachea, bronchus and lung; Z80.0 Family history of malignant neoplasm of digestive organs; Z82.49 Family history of ischemic heart disease and other diseases of the circulatory system; Z87.891 Personal history of nicotine dependence; Z86.010 Personal history of colon polyps; T50.8X5A Adverse effect of diagnostic agents, initial encounter
CPT/HCPCS: 36415; 36416; 49020; 71045; 71250; 71260; 74176; 74177; 76705; 77002; 80048; 80053; 80306; 81001; 82306; 82378; 82805; 83036; 83605; 83690; 83735; 84100; 85025; 85610; 85730; 86140; 86480; 86850; 86900; 86901; 87040; 87070; 87077; 87086; 87186; 87205; 87389; 93005; 93010; 96365; 96368; 96375; C1729; C1751; J0171; J0692; J0696; J1170; J1642; J1650; J1815; J2250; J2270; J2405; J2550; J2704; J2997; J3010; J3370; J3475; J3490; J7120; Q9967; S0020; U0002; U0003; U0005

== ENCOUNTER 2021-09-05 01:36 | Emergency (ER) | payer OTHER, MEDICARE ==
[2021-09-05 02:12] LABS: #Eosinphils 0.5 thou/uL (0.0-0.7); #Lymphocytes 2.9 thou/uL (1.20-3.40); #Monocytes 0.8 thou/uL (0.11-0.59); #Neutrophils 5.6 thou/uL (1.40-6.50); %Basophils 0.5 % (0.0-1.0); %Eosinophils 5.3 % (0.0-10.0); %Lymphocytes 29.4 % (21.0-51.0); %Monocytes 8.4 % (0.0-10.0); %Neutrophils 56.4 % (42.0-75.0); Hemoglobin 10.5 g/dL (14.0-18.0); Mean Corpuscular HGB CONC 32.3 g/dL (32.0-36.0); Mean Corpuscular Hemoglobin 28.7 pg (27.0-31.0); Mean Platelet Volume 6.9 fL (7.4-10.4); Platelet Count 343 thou/uL (130-400); RBC Distribution Width 18.3 % (11.5-14.5); Red Blood Cell (RBC) Count 3.64 mill/uL (4.70-6.10); White Blood Cell (WBC) Count 9.9 thou/uL (4.8-10.8)
[2021-09-05 02:42] LABS: ALT (SGPT) 13 U/L (8-55); AST (SGOT) 20 U/L (5-34); Albumin 3.2 g/dL (3.4-4.8); Alkaline Phosphatase 73 U/L (40-110); Anion Gap 13 mmol/L (10-20); BUN (Urea Nitrogen) 15 mg/dL (8.4-25.7); Bilirubin, Total 0.3 mg/dL (0.2-1.2); Calc. Creatinine Clearance 0 mL/min (70-130); Calcium 8.9 mg/dL (7.8-10.44); Carbon Dioxide 25 mmol/L (23-31); Chloride 105 mmol/L (98-107); Globulin 3.3 g/dL (2.4-3.5); Glucose 68 mg/dL (80-115); Potassium 4.2 mmol/L (3.5-5.1); Protein, Total 6.5 g/dL (5.8-8.1); Sodium 139 mmol/L (136-145)
== END 2021-09-05 04:05 | disposition home or self-care (01) ==
LOC: ERS 01:36
DX: S09.90XA Unspecified injury of head, initial encounter (principal); E11.649 Type 2 diabetes mellitus with hypoglycemia without coma; I25.2 Old myocardial infarction; I11.0 Hypertensive heart disease with heart failure; I50.9 Heart failure, unspecified; E78.5 Hyperlipidemia, unspecified; I48.91 Unspecified atrial fibrillation; Z87.891 Personal history of nicotine dependence; W01.198A Fall on same level from slipping, tripping and stumbling with subsequent striking against other object, initial encounter
CPT/HCPCS: 36415; 36416; 70450; 71045; 80053; 83880; 84484; 85025; 93005

== ENCOUNTER 2021-09-23 08:09 | Outpatient (CLI) | payer MEDICARE | END 2021-09-23 08:10 | disposition home or self-care (01) | LOC: BICCT 08:09 | PROVIDERS: ATTEND Student in an Organized Health Care Education/Training Program | DX: K68.19 Other retroperitoneal abscess (principal); K66.1 Hemoperitoneum; J90 Pleural effusion, not elsewhere classified; K59.00 Constipation, unspecified | CPT/HCPCS: 74177 ==

== ENCOUNTER 2021-11-01 08:06 | Outpatient (CLI) | payer MEDICARE ==
[2021-11-01 09:10] LABS: Estimated GFR-MDRD - POC Greater than 90
== END 2021-11-01 08:07 | disposition home or self-care (01) ==
LOC: CT 08:06
PROVIDERS: ATTEND Student in an Organized Health Care Education/Training Program
DX: K68.19 Other retroperitoneal abscess (principal); Z97.8 Presence of other specified devices
CPT/HCPCS: 71260; 82565

== ENCOUNTER 2022-08-25 14:40 | Outpatient (CLI) | payer MEDICARE | END 2022-08-25 14:41 | disposition home or self-care (01) | LOC: BICCT 14:40 | PROVIDERS: ATTEND Student in an Organized Health Care Education/Training Program | DX: R10.11 Right upper quadrant pain (principal); L90.5 Scar conditions and fibrosis of skin | CPT/HCPCS: 74150 ==

== ENCOUNTER 2023-07-04 14:19 | Outpatient (CLI) | payer MEDICARE ==
[2023-07-04 15:48] LABS: Hematocrit 44.5 % (38.8-50.0); Hemoglobin 14.6 g/dL (13.5-17.5); Mean Corpuscular HGB CONC 32.8 g/dL (32.0-36.0); Mean Corpuscular Hemoglobin 28.9 pg (27.0-33.0); Mean Corpuscular Volume 88.1 fl (81.2-95.1); Mean Platelet Volume 10.4 fl (7.4-10.4); Platelet Count 257 10x3/uL (150-450); Red Blood Cell (RBC) Count 5.05 10x6/uL (4.32-5.72); White Blood Cell (WBC) Count 9.4 10x3/uL (3.5-10.5)
[2023-07-04 16:12] LABS: Anion Gap 17 mmol/L (10-20); BUN (Urea Nitrogen) 10 mg/dL (8.4-25.7); Calc. Creatinine Clearance 0 mL/min (70-130); Calcium 9.7 mg/dL (7.8-10.44); Carbon Dioxide 26 mmol/L (23-31); Chloride 100 mmol/L (98-107); Estimated GFR 89; Glucose 280 mg/dL (80-115); Sodium 138 mmol/L (136-145)
== END 2023-07-04 14:20 | disposition home or self-care (01) ==
LOC: LABBT 14:19
PROVIDERS: ATTEND Otolaryngology Plastic Surgery within the Head & Neck
DX: Z01.818 Encounter for other preprocedural examination (principal); J32.4 Chronic pansinusitis; J34.3 Hypertrophy of nasal turbinates; J33.0 Polyp of nasal cavity; J34.2 Deviated nasal septum
CPT/HCPCS: 80048; 85027; 93005; 93010

== ENCOUNTER 2023-07-05 08:14 | Day surgery (SDC) | payer MEDICARE ==
[2023-07-04 15:03] VITALS: BMI 31.8
[2023-07-05] MEDS ORDERED: Oxymetazoline HCl 0.05% (30 ML BOT) ONE ×2 (09:05→09:37)
[2023-07-05] MEDS ORDERED: Fentanyl 250 MCG/5 ML VIAL ONE (09:33)
[2023-07-05] MEDS ORDERED: Bacitracin Zinc Ointment 30 gm TUBE ONE (09:37)
[2023-07-05] MEDS ORDERED: Lidocaine 1% (PF) 30 ML VIAL ONE (09:37)
[2023-07-05] MEDS ORDERED: EPINEPHrine 1 MG/ML AMP ONE (09:42)
[2023-07-05] MEDS ORDERED: Lidocaine 1% PF 5 ML VIAL ONE (09:56)
[2023-07-05] MEDS ORDERED: PROPOFOL 200 MG/20 ML VIAL ONE (09:56)
[2023-07-05] MEDS ORDERED: ePHEDrine Sulfate 50 MG/10 ML VIAL ONE (09:56)
[2023-07-05] MEDS ORDERED: Ondansetron PF 4 MG/2 ML Vial ONE (09:56)
[2023-07-05] MEDS ORDERED: Rocuronium Bromide 10 MG/ML (10ML VIAL) ONE (09:56)
[2023-07-05] MEDS ORDERED: Dexamethasone 20 MG/5 ML VIAL ONE (09:56)
== END 2023-07-05 13:38 | disposition home or self-care (01) ==
LOC: SDC 08:14
PROVIDERS: ATTEND Otolaryngology Plastic Surgery within the Head & Neck
PROC: 09BL0ZZ Excision of Nasal Turbinate, Open Approach (ICD-10-PCS; principal; 2023-07-05)
PROC: 09BV8ZZ Excision of Left Ethmoid Sinus, Via Natural or Artificial Opening Endoscopic (ICD-10-PCS; 2023-07-05)
PROC: 09BW8ZZ Excision of Right Sphenoid Sinus, Via Natural or Artificial Opening Endoscopic (ICD-10-PCS; 2023-07-05)
PROC: 09BQ8ZZ Excision of Right Maxillary Sinus, Via Natural or Artificial Opening Endoscopic (ICD-10-PCS; 2023-07-05)
PROC: 09BR8ZZ Excision of Left Maxillary Sinus, Via Natural or Artificial Opening Endoscopic (ICD-10-PCS; 2023-07-05)
PROC: 09BS8ZZ Excision of Right Frontal Sinus, Via Natural or Artificial Opening Endoscopic (ICD-10-PCS; 2023-07-05)
PROC: 09BT8ZZ Excision of Left Frontal Sinus, Via Natural or Artificial Opening Endoscopic (ICD-10-PCS; 2023-07-05)
PROC: 09BU8ZZ Excision of Right Ethmoid Sinus, Via Natural or Artificial Opening Endoscopic (ICD-10-PCS; 2023-07-05)
DX: J32.4 Chronic pansinusitis (principal); J34.3 Hypertrophy of nasal turbinates; J33.0 Polyp of nasal cavity; J34.89 Other specified disorders of nose and nasal sinuses; J34.2 Deviated nasal septum; Z88.0 Allergy status to penicillin; Z79.899 Other long term (current) drug therapy
CPT/HCPCS: 36416; 88305; J0171; J1100; J2001; J2405; J2704; J3010

== ENCOUNTER 2023-08-09 13:53 | Outpatient (CLI) | payer MEDICARE | END 2023-08-09 13:54 | disposition home or self-care (01) | LOC: BICCT 13:53 | PROVIDERS: ATTEND Psychiatry & Neurology Neurology | DX: R25.1 Tremor, unspecified (principal) | CPT/HCPCS: 70450 ==